=== PATIENT | male | born 1945 | race Caucasian/White ===

== ENCOUNTER 2023-11-16 15:49 | Outpatient (CLI) | payer MEDICARE, BC, SELFPAY ==
--- OUTSIDE RECORDS SUMMARY | 2023-11-16 16:00 | XMS_ITS | Referral Summary ---
Author Name Unknown Organization [facility] Address [address] [place] [address] Care Team Providers Care Channel Process Supervisor Name Role Phone Unavailable Primary Care Provider Unavailabl e Source Comments Patient records contain information from all sites at [facility]. For routine questions regarding patient records, call [phone] during business hours, M-F 8:00 AM - 5:00 PM Central Time. Record requests for emergency care only can be directed to [phone] at any time.[facility] Encounters Date Type Department Care Team Description 11/11/2023 Clinical Communication Department of Oncology in [address] [address] Flakito Desai M.B.B.S. 11/11/2023 7:53 AM TAPE KELLER OPERATOR - 11/11/2023 11:59 PM TAPE KELLER OPERATOR Hospital Encounter Department of Radiology in [place], [place] [address] [place] [phone] Flakito Desai M.B.B.S. 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 11/09/2023 Orders Only Department of Oncology in [address] [address] Shasta Garcia R.N. 11/09/2023 Clinical Communication Department of Oncology in [address] [address] Flakito Desai M.B.B.S. 11/04/2023 Refill Department of Oncology in [address] [place] [address] Lyndsay Ladd R.N. Med Refill 10/29/2023 9:30 AM TAPE KELLER OPERATOR Infusion Department of Infusion Therapy in [address] [address] Flakito Desai M.B.B.S. 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 Eliquis Questions 10/17/2023 Clinical Communication Department of [facility], [address] [address] Annmarie Jose M.S.N., R.N. COVID Treatment Review 10/16/2023 Clinical Communication Department of Oncology in [address] [address] Flakito Desai M.B.B.S. COVID + 10/02/2023 Refill Department of Oncology in [address] [address] Flakito Desai M.B.B.S. Med Refill 09/29/2023 1:45 PM TAPE KELLER OPERATOR Infusion Department of Infusion Therapy in [address] [address] Flakito Desai M.B.B.S. 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 from Last 3 Months Allergies Active Allergy Reactions Criticality Noted Date Comments Lisinopril Cough Low 11/15/2018 Medications Medication Sig Dispensed Refills Start Date End Date Status allopurinoL (ZYLOPRIM) 100 mg tablet Take 1 tablet by mouth daily. 0 03/30/2023 Active atorvastatin (LIPITOR) 10 mg tablet Take 10 mg by mouth daily. 0 06/17/2016 Active fluticasone propionate (FLONASE) 50 mcg/actuation nasal spray Administer 2 sprays into nostril(s) daily. 0 Active ondansetron (ZOFRAN) 8 mg tablet Take 8 mg by mouth every 8 (eight) hours as needed for nausea. 0 03/17/2023 Active tiotropium (Spiriva Respimat) 2.5 mcg/actuation inhaler Inhale 2 puffs daily. 0 10/06/2016 Active cholecalciferol , vitD3,/vit K2 (vitamin D3-vitamin K2) 125-90 mcg capsule Take 1 capsule by mouth daily. 0 Active magnesium oxide (MAG-OX) 400 mg (241.3 mg magnesium) tablet Take 1 tablet by mouth daily. 0 07/14/2023 Active dilTIAZem CD (CARDIZEM CD/CARTIA XT) 240 mg 24 hr capsule Take 240 mg by mouth daily. 0 08/25/2023 Active potassium chloride (KLORCON/K-TAB) 10 mEq ER tablet Take 1 tablet (10 mEq total) by mouth 2 (two) times a day. 60 tablet 11 10/02/2023 10/01/20 24 Active bisacodyL (DULCOLAX) 5 mg EC tablet Take 10 mg by mouth. 0 Acti ve apixaban (ELIQUIS) 5 mg tablet Take 1 tablet (5 mg total) by mouth 2 (two) times a day. 180 tablet 0 10/22/2023 01/20/20 24 Active Additional Information Patient not taking.Reported on 10/29/2023 prochlorperazin e (COMPAZINE) 10 mg tablet Take 10 mg by mouth every 6 (six) hours as needed for nausea or vomiting. 0 03/17/2023 Active UNABLE TO FIND Take 2 each by mouth 2 (two) times a day. Med Name: Vision Gold 0 Active apixaban (ELIQUIS) 5 mg tablet Take 1 tablet (5 mg total) by mouth 2 (two) times a day. 60 tablet 3 11/04/2023 Active enoxaparin (LOVENOX) 80 mg/0.8 mL injection Inject 0.8 mL (80 mg total) under the skin 2 (two) times a day for 3 doses. Recommend last dose of Eliquis to be taken 3 days prior to procedure. Recommend Lovenox 1 milligram/kilograms subcutaneously every 12 hours starting on day -2 through day -1. Last dose of Lovenox the morning the day before the procedure. NO anticoagulation for 24 hours prior to procedure. Resume anticoagulation with Eliquis 24 hours after minor risk of bleeding procedure. Resume anticoagulation with Eliquis 48 hours after major risk of bleeding procedure as long as adequate hemostasis has been reached. 2.4 mL 0 11/09/2023 Active sodium chloride 1 gram tablet Take 1 g by mouth. 3 tablets in the morning and 2 tablets at night 0 08/10/2023 11/08/19 24 apixaban (Eliquis) 5 mg tablet Take 5 mg by mouth 2 (two) times a day. 0 09/01/2023 11/04/19 24 Discontinue d(Reorder) apixaban (ELIQUIS) 5 mg tablet Take 1 tablet (5 mg total) by mouth 2 (two) times a day. 180 tablet 0 10/02/2023 10/22/19 24 Discontinue d(Reorder) molnupiravir (LAGEVRIO) 200 mg capsule Take 4 capsules (800 mg total) by mouth every 12 (twelve) hours for 5 days. 40 capsule 0 10/17/2023 10/22/19 24 apixaban (Eliquis) 5 mg tablet Take 2 tablets (10 mg total) by mouth 2 (two) times a day for 7 days. After 1st 7 days take 5 mg twice daily 28 tablet 0 11/11/2023 11/04/19 24 Discontinue d(Duplicate order) Active Problems Problem Noted Date Diagnosed Date Other Application Services Manager Current Drug Therapy 10/29/2023 Malignant Neoplasm Of Unspec ified Part Of Lung Laterality Unknown Small Cell 04/01/2023 Malignant Primary Neoplasm (Unknown Site) Unspec ified 03/08/2023 03/27/2023 Social History Tobacco Use Types Packs/Day Years Used Date Smoking Tobacco: Former Cigarettes Q uit: 1979 Passive Smoke Exposure: Never Smokeless Tobacco: Never Tobacco Cessation:Counseling Given: Not Answered Comments:Quit 46 years ago. Alcohol Use Standard Drinks/Week Comments Not Currently 0 (1 standard drink = 0.6 oz pur e alcohol) Nutrition Answer Date Recorded Nutrition: EVOO Fat Source Unknown 03/23 Nutrition: Servings of Fruits/Vegetables per Day Not on file 03/23/2023 Dental Answer Date Recorded Dental: Regular Dentist Unknown 03/23/20 Education Answer Date Recorded What is the highest level of school you have completed or the highest degree you have received? 8th grade 10/29/2023 Sex and Gender Information Value Date Recorded Sex Assigned at Male 04/01/2023 1:01 PM CDT Gender Identity Male 04/01/2023 1:01 PM CDT Sexual Orientation Straight 04/01/2023 1: 01 PM CDT Last Filed Vital Signs Vital Sign Reading Time Taken Comments Blood Pressure 110/70 10/29/2023 8:31 AM TAPE KELLER OPERATOR Pulse 93 10/29/2023 8:31 AM TAPE KELLER OPERATOR Temperature 36.3 ??C (97.3 ??F) 10/29/2023 8:31 AM CS T Respiratory Rate 22 10/29/2023 8:31 AM TAPE KELLER OPERATOR Oxygen Saturation 94% 10/29/2023 8:31 AM TAPE KELLER OPERATOR Inhaled Oxygen Concentration - - Weight 85.3 kg (188 lb 0.8 oz) 10/29/2023 8:31 A M TAPE KELLER OPERATOR Height 180.3 cm (5' 11) 05/06/2023 8:38 AM CDT Body Mass Index 26.23 05/06/2023 8:38 AM CDT Plan of Treatment Upcoming Encounters Date Type Department Care Team (Late st Contact Info) Description 11/18/2023 9:00 AM TAPE KELLER OPERATOR Lab Department of Infusion Therapy in [address] [place] [phone] Flakito Desai M.B.B.S. [address] [place] [phone] 11/18/2023 10:00 AM TAPE KELLER OPERATOR Office Visit Department of Oncology in [address] [place] [phone] Flakito Desai M.B.B.S. [address] [place] [phone] 11/18/2023 10:30 AM TAPE KELLER OPERATOR Infusion Department of Infusion Therapy in [address] [place] [address] Flakito Desai M.B.B.S. [address] [place] [phone] 11/19/2023 10:30 AM TAPE KELLER OPERATOR Infusion Department of Infusion Therapy in [address] [place] [address] Flakito Desai M.B.B.S. [address] [place] [phone] 11/20/2023 10:30 AM TAPE KELLER OPERATOR Infusion Department of Infusion Therapy in [address] [place] [address] Flakito Desai M.B.B.S. [address] [place] [phone] 12/07/2023 9:30 AM TAPE KELLER OPERATOR Lab Department of Infusion Therapy in [address] [place] [address] Flakito Desai M.B.B.S. [address] [place] [phone] 12/07/2023 10:40 AM TAPE KELLER OPERATOR Office Visit Department of Oncology in [address] [place] [address] Flakito Desai M.B.B.S. [address] [place] [phone] 12/07/2023 11:00 AM TAPE KELLER OPERATOR Infusion Department of Infusion Therapy in [address] [place] [address] Flakito Desai M.Antonietta.B.S. [address] [place] [phone] 12/08/2023 10:30 AM TAPE KELLER OPERATOR Infusion Department of Infusion Therapy in [address] [place] [address] Flakito Desai M.B.B.S. [address] [place] [phone] 12/09/2023 10:30 AM TAPE KELLER OPERATOR Infusion Department of Infusion Therapy in [address] [place] [address] Flakito Desai M.B.B.S. [address] [place] [phone] Medical Devices Implanted Type Area Analyzer Sales Device Identifier Shelf Expiration Date Model / Serial / Lot Prt Cath Infus Mri Intrmd 8f - [id number] Implanted:Qty : 1 on 05/04/2023 by Andrei Rivera M.D. 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) PHOSPHORUS (INORGANIC), S Routine 10/29/2023 7:35 AM TAPE KELLER OPERATOR 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) MAGNESIUM, S Routine 10/29/2023 7:35 AM TAPE KELLER OPERATOR 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) COMPREHENSIVE METABOLIC PANEL, S/P Routine 10/29/2023 7:35 AM TAPE KELLER OPERATOR 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) CBC WITH DIFFERENTIAL, B Routine 10/29/2023 7:35 AM TAPE KELLER OPERATOR 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) EXTM HOME SARS CORONAVIRUS-2 (COVID-19) ANTIGEN, V Routine 10/15/2023 THYROID FUNCTION CASCADE, S Routine 09/23/2023 12:16 PM TAPE KELLER OPERATOR 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) PHOSPHORUS (INORGANIC), S Routine 09/23/2023 12:16 PM TAPE KELLER OPERATOR 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) MAGNESIUM, S Routine 09/23/2023 12:16 PM TAPE KELLER OPERATOR 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) COMPREHENSIVE METABOLIC PANEL, S/P Routine 09/23/2023 12:16 PM TAPE KELLER OPERATOR 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 ??Three new hypermetabolic hepatic metastases. 2. ??Otherwise no PET CT evidence for additional or new disease elsewhere Narrative 11/11/2023 11:02 AM TAPE KELLER OPERATOR EXAM: PET CT SKULL TO THIGH FDG COMPARISON: 07/21/2023, 05/04/2023 INDICATION: Restaging non-small cell lung cancer, assess treatment response. Subsequent treatment strategy. F-[address] scan was performed from the mid calvarium through the upper thighs with CT fusion imaging for attenuation correction, anatomic coregistration, and respiratory gating only. Serum glucose at time of F-18 FDG injection: 100 mg/dL. Uptake time: 60 minutes following injection. The patient reports no recent vaccinations. FINDINGS: Head/Neck: No suspicious hypermetabolic foci. Chest: No suspicious hypermetabolic foci. Background internal control mediastinal uptake measures 6.67 on today's exam. Focus of hypermetabolism along the left cardiac sign no atrial junction is likely physiologic, perhaps due to brown fat. Abdomen/Pelvis: There are at least 3 new hypermetabolic lesions in the liver seen on image 157-142 of series 3/4, maximum SUV measuring 10.92. Left adrenal gland uptake is less than background measuring 2.55. Physiologic uptake demonstrated in bowel Skeleton: No suspicious hypermetabolic foci. In particular the sclerotic focus in the right iliac bone is nonhypermetabolic, see image 87 of series 3/4. Superficial venous uptake in the left arm on image 253 through 293 is likely physiologic. Uptake associated with a right mid thoracic vertebra osteophyte, image 188 of series 3/4 is physiologic. Other Findings: No pneumothorax. No acute airspace opacity is observed. No small bowel or colon obstruction or pneumatosis. RADIOPHARMACEUTICAL/MEDS: Route: intravenous fludeoxyglucose F 18 injection SHELTER (FDG F-18),13.7 millicurie Procedure Note Thomas Flor M.D. - 11/11/2023 EXAM: PET CT SKULL TO THIGH FDG COMPARISON: 07/21/2023, 05/04/2023 INDICATION: Restaging non-small cell lung cancer, assess treatmentresponse. Subsequent treatment strategy. F-[address] scan was performed from the mid calvarium through theupper thighs with CT fusion imaging for attenuation correction, anatomiccoregistration, and respiratory gating only. Serum glucose at time of F-18 FDG injection: 100 mg/dL. Uptake time: 60 minutes following injection. The patient reports no recent vaccinations. FINDINGS: Head/Neck: No suspicious hypermetabolic foci. Chest: No suspicious hypermetabolic foci. Background internal controlmediastinal uptake measures 6.67 on today's exam. Focus of hypermetabolismalong the left cardiac sign no atrial junction is likely physiologic,perhaps due to brown fat. Abdomen/Pelvis: There are at least 3 new hypermetabolic lesions in theliver seen on image 157-142 of series 3/4, maximum SUV measuring 10.92.Left adrenal gland uptake is less than background measuring 2.55.Physiologic uptake demonstrated in bowel Skeleton: No suspicious hypermetabolic foci. In particular the scleroticfocus in the right iliac bone is nonhypermetabolic, see image 87 of series3/4. Superficial venous uptake in the left arm on image 253 through 293 islikely physiologic. Uptake associated with a right mid thoracic vertebra osteophyte, image 188 ofseries 3/4 is physiologic. Other Findings: No pneumothorax. No acute airspace opacity is observed. Nosmall bowel or colon obstruction or pneumatosis. RADIOPHARMACEUTICAL/MEDS: Route: intravenous fludeoxyglucose F 18 injection SHELTER (FDG F-18),13.7 millicurie IMPRESSION: 1. Three new hypermetabolic hepatic metastases. 2. Otherwise no PET CT evidence for additional or new disease elsewhere Flakito PriceBKeishaS. [facility] NM PROCEDURE S * Thyroid Function Brown (10/29/2023 7:35 AM TAPE KELLER OPERATOR) Only the most recent of2 resultswithin the time period is included. TSH, Sensitive 1.2 0.3 - 4.2 mIU/L 10/29/2023 8:46 AM TAPE KELLER OPERATOR MKTO Blood (Blood, Venous) 10/29/2023 7:35 AM TAPE KELLER OPERATOR 10/29/2023 7:39 AM TAPE KELLER OPERATOR Flakito PriceB.S. LAB BLOOD ADD-ON [facility] [address] [place] [address], [place] [facility] [facility] [place] [address] [place] [address] * (ABNORMAL) CBC with Differential, Blood (10/29/2023 7:35 AM TAPE KELLER OPERATOR) Only the most recent of2 resultswithin the time period is included. Hemoglobin 13.2 13.2 - 16.6 g/dL 10/29/2023 7:43 AM TAPE KELLER OPERATOR MKTO Hematocrit 38.8 38.3 - 48.6 % 10/29/2023 7:43 AM TAPE KELLER OPERATOR MKTO Erythrocytes 4.21(L) 4.35 - 5.65 x10(12)/L 10/29/2023 7:43 AM TAPE KELLER OPERATOR MKTO MCV 92.2 78.2 - 97.9 fL 10/29/2023 7:43 AM TAPE KELLER OPERATOR MKTO RBC Distrib Width 13.1 11.8 - 14.5 % 10/29/2023 7:43 AM TAPE KELLER OPERATOR MKTO Platelet Count 274 135 - 317 x10(9)/L 10/29/2023 7:43 AM TAPE KELLER OPERATOR MKTO Leukocytes 8.4 3.4 - 9.6 x10(9)/L 10/29/2023 7:43 AM TAPE KELLER OPERATOR MKTO Neutrophils 6.17 1.56 - 6.45 x10(9)/L 10/29/2023 7:43 AM TAPE KELLER OPERATOR MKTO Lymphocytes 1.24 0.95 - 3.07 x10(9)/L 10/29/2023 7:43 AM TAPE KELLER OPERATOR MKTO Monocytes 0.77 0.26 - 0.81 x10(9)/L 10/29/2023 7:43 AM TAPE KELLER OPERATOR MKTO Eosinophils 0.20 0.03 - 0.48 x10(9)/L 10/29/2023 7:43 AM TAPE KELLER OPERATOR MKTO Basophils 0.04 0.01 - 0.08 x10(9)/L 10/29/2023 7:43 AM TAPE KELLER OPERATOR MKTO Blood (Blood, Venous) 10/29/2023 7:35 AM TAPE KELLER OPERATOR 10/29/2023 7:39 AM TAPE KELLER OPERATOR Flakito PriceB.S. LAB BLOOD ADD-ON [facility] [address] [place] [address], [place] [address] * Phosphorus Inorganic (10/29/2023 7:35 AM TAPE KELLER OPERATOR) Only the most recent of2 resultswithin the time period is included. Phosphorus (Inorganic), P 3.5 2.5 - 4.5 mg/dL 10/29/2023 8:04 AM TAPE KELLER OPERATOR MKTO Blood (Blood, Venous) 10/29/2023 7:35 AM TAPE KELLER OPERATOR 10/29/2023 7:39 AM TAPE KELLER OPERATOR Flakito Palacio.B.S. LAB BLOOD ADD-ON Performing Organization Address City/[facility]/ZIP Co de Phone Number [facility] [address] [place] [address], [facility] [address] [place] [id number] * Magnesium (10/29/2023 7:35 AM TAPE KELLER OPERATOR) Only the most recent of2 resultswithin the time period is included. Magnesium, P 1.9 1.7 - 2.3 mg/dL 10/29/2023 8:04 AM TAPE KELLER OPERATOR MKTO Blood (Blood, Venous) 10/29/2023 7:35 AM TAPE KELLER OPERATOR 10/29/2023 7:39 AM TAPE KELLER OPERATOR Flakito PriceB.S. LAB BLOOD ADD-ON [facility] [address] [place] [address], [address] [address] * Comprehensive Metabolic Panel (10/29/2023 7:35 AM TAPE KELLER OPERATOR) Only the most recent of2 resultswithin the time period is included. Potassium, P 4.3 3.6 - 5.2 mmol/L 10/29/2023 8:04 AM TAPE KELLER OPERATOR MKTO Sodium, P 135 135 - 145 mmol/L 10/29/2023 8:04 AM TAPE KELLER OPERATOR MKTO Chloride, P 101 98 - 107 mmol/L 10/29/2023 8:04 AM TAPE KELLER OPERATOR MKTO Bicarbonate, P 26 22 - 29 mmol/L 10/29/2023 8:04 AM TAPE KELLER OPERATOR MKTO Anion Gap, P 8 7 - 15 10/29/2023 8:04 AM TAPE KELLER OPERATOR MKTO BUN (Blood Urea Nitrogen), P 14 8 - 24 mg/dL 10/29/2023 8:04 AM TAPE KELLER OPERATOR MKTO Creatinine 0.75 0.74 - 1.35 mg/dL 10/29/2023 8:04 AM TAPE KELLER OPERATOR MKTO Estimated GFR (eGFR) >90 >=60 mL/min/BS A 10/29/2023 8:04 AM TAPE KELLER OPERATOR TO Comment: Estimated GFR calculated using the 2020 CKD_EPI creatinine equation. Calcium, Total, P 9.3 8.8 - 10.2 mg/dL 10/29/2023 8:04 AM TAPE KELLER OPERATOR MKTO Glucose, P 118 70 - 140 mg/dL 10/29/2023 8:04 AM TAPE KELLER OPERATOR TO Protein, Total, P 6.8 6.3 - 7.9 g/dL 10/29/2023 8:04 AM TAPE KELLER OPERATOR MKTO Albumin, P 4.0 3.5 - 5.0 g/dL 10/29/2023 8:04 AM TAPE KELLER OPERATOR TO Aspartate Aminotransferase (AST), P 21 8 - 48 U/L 10/29/2023 8:04 AM TAPE KELLER OPERATOR MKTO Alkaline Phosphatase, P 119 40 - 129 U/L 10/29/2023 8:04 AM TAPE KELLER OPERATOR MKTO Alanine Aminotransferase (ALT), P 14 7 - 55 U/L 10/29/2023 8:04 AM TAPE KELLER OPERATOR MKTO Bilirubin, Total, P 0.4 0.0 - 1.2 mg/dL 10/29/2023 8:04 AM TAPE KELLER OPERATOR MKTO Blood (Blood, Venous) 10/29/2023 7:35 AM TAPE KELLER OPERATOR 10/29/2023 7:39 AM TAPE KELLER OPERATOR Flakito Chio LAB BLOOD ADD-ON [facility] [address] [place] [address], [facility] MKTO [facility] [place] [address] [place] [address] * (ABNORMAL) EXT Home SARS Coronavirus-2 (COVID-19) Antigen (10/15/2023) EXT Home SARS-CoV-2 Antigen Presumptive Positive(A) Presumptive Negative HOME RESULTS Swab 10/15/2023 Historical Provider LAB MICROBIOLOGY - G ENERAL ORDERABLES HOME RESULTS from Last 3 Months Additional Health Concerns Infection Onset Date Last Indicated Protective Environment 09/29/2023 3
--- OUTSIDE RECORDS SUMMARY | 2023-11-16 16:00 | XMS_ITS | Encounter Summary ---
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 [address] [place] [address] [facility] Referral ID Status Reason Start Date Expiration Date Visits Re quested Visits Authorized [id number] Closed 09/23/2023 09/22/2024 1 1 Encounter Details Date Type Department Care Team (Latest Contact Info) Description 11/11/2023 7:53 AM BRIAR SH[employer] SUPERVISOR - 11/11/2023 11:59 PM [employer]RIAR [employer] SUPERVISOR Hospital Encounter Department of Radiology in [place], [place] [address] [place] [address] Flakito Desai M.B.BKeishaS. 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 Alcohol Use Standard [...] Orientation Straight 04/01/2023 1: 01 PM CDT documented as of this encounter Medications at Time of Discharge Medication Sig Dispensed Refills Start Date End Date allopurinoL (ZYLOPRIM) 100 mg tablet Take 1 tablet by mouth daily. 0 03/30/2023 apixaban (ELIQUIS) 5 mg tablet Take 1 tablet (5 mg total) by mouth 2 (two) times a day. 180 tablet 0 10/22/2023 01/20/2024 apixaban (ELIQUIS) 5 mg tablet Take 1 tablet (5 mg total) by mouth 2 (two) times a day. 60 tablet 3 11/04/2023 atorvastatin (LIPITOR) 10 mg tablet Take 10 mg by mouth daily. 0 06/17/2016 bisacodyL (DULCOLAX) 5 mg EC tablet Take 10 mg by mouth. 0 cholecalciferol, vitD3,/vit K2 (vitamin D3-vitamin K2) 125-90 mcg capsule Take 1 capsule by mouth daily. 0 dilTIAZem CD (CARDIZEM CD/CARTIA XT) 240 mg 24 hr capsule Take 240 mg by mouth daily. 0 08/25/2023 fluticasone propionate (FLONASE) 50 mcg/actuation nasal spray Administer 2 sprays into nostril(s) daily. 0 magnesium oxide (MAG-OX) 400 mg (241.3 mg magnesium) tablet Take 1 tablet by mouth daily. 0 07/14/2023 ondansetron (ZOFRAN) 8 mg tablet Take 8 mg by mouth every 8 (eight) hours as needed for nausea. 0 03/17/2023 potassium chloride (KLORCON/K-TAB) 10 mEq ER tablet Take 1 tablet (10 mEq total) by mouth 2 (two) times a day. 60 tablet 11 10/02/2023 10/01/2024 prochlorperazine (COMPAZINE) 10 mg tablet Take 10 mg by mouth every 6 (six) hours as needed for nausea or vomiting. 0 03/17/2023 tiotropium (Spiriva Respimat) 2.5 mcg/actuation inhaler Inhale 2 puffs daily. 0 10/06/2016 UNABLE TO FIND Take 2 each by mouth 2 (two) times a day. Med Name: Vision Gold 0 documented as of this encounter Plan of Treatment Upcoming Encounters Date Type Department Care Team (Late st Contact Info) Description 11/18/2023 9:00 AM BRIAR SHOP SUPERVISOR Lab Department of Infusion Therapy in [address] [place] [phone] Flakito Desai M.B.B.S. [facility] [place] [address] 11/18/2023 10:00 AM BRIAR [employer] SUPERVISOR Office Visit Department of Oncology in [address] [place] [phone] Flakito Desai M.B.B.S. [address] [place] [phone] 11/18/2023 10:30 AM BRIAR SHOP SUPERVISOR Infusion Department of Infusion Therapy in [address] [place] [address] Flakito Desai M.B.B.S. [address] [place] [phone] 11/19/2023 10:30 AM BRIAR SHOP SUPERVISOR Infusion Department of Infusion Therapy in [address] [place] [phone] Flakito Desai M.B.B.S. [address] [place] [phone] 11/20/2023 10:30 AM BRIAR SH[employer] SUPERVISOR Infusion Department of Infusion Therapy in [address] [place] [phone] Flakito Desai M.B.B.S. [address] [place] [phone] 12/07/2023 9:30 AM BRIAR [employer] SUPERVISOR Lab Department of Infusion Therapy in [address] [place] [phone] Flakito Desai M.B.B.S. [address] [place] [phone] 12/07/2023 10:40 AM BRIAR SH[employer] SUPERVISOR Office Visit Department of Oncology in [address] [place] [address] Flakito Desai M.B.B.S. [address] [place] [phone] 12/07/2023 11:00 AM BRIAR SHOP SUPERVISOR Infusion Department of Infusion Therapy in [address] [place] [address] Flakito Desai M.B.B.S. [address] [place] [phone] 12/08/2023 10:30 AM BRIAR SHOP SUPERVISOR Infusion Department of Infusion Therapy in [address] [place] [address] Flakito Desai M.B.B.S. [address] [place] [phone] 12/09/2023 10:30 AM BRIAR SHOP SUPERVISOR Infusion Department of Infusion Therapy in [address] [place] [phone] Flakito Desai M.B.B.S. 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 ??Three new hypermetabolic hepatic metastases. 2. ??Otherwise no PET CT evidence for additional or new disease elsewhere Narrative 11/11/2023 11:02 AM BRIAR SHOP SUPERVISOR EXAM: PET CT SKULL TO THIGH FDG [...] RADIOPHARMACEUTICAL/MEDS: Route: intravenous fludeoxyglucose F 18 injection DETENTION (FDG F-18),13.7 millicurie Procedure Note Thomas Flor [...] RADIOPHARMACEUTICAL/MEDS: Route: intravenous fludeoxyglucose F 18 injection DETENTION (FDG F-18),13.7 millicurie IMPRESSION: 1. Three new hypermetabolic hepatic metastases. 2. 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
--- OUTSIDE RECORDS SUMMARY | 2023-11-16 16:00 | XMS_ITS | Encounter Summary ---
Author Name Unknown Organization [facility] Address [address] [place] [address] Care Team Providers Care Clinical Training Specialist Name Role Phone Unavailable Primary Care Provider Unavailabl e Reason for Visit * Reason Comments Lung Cancer 5 week follow-up, madeleine gil done Treatment Advanced Care Planning Not on file, will bring a copy Fatigue No energy, especiall y since having Covid * Episode Based Medications (Routine) - Authorized Specialty Diagnoses / Procedures Referred By Contac t Referred To Contact Diagnoses 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) Other Fdc Current Drug Therapy Procedures [place] INJECTION, PEGFILGRASTIM, EXCLUDES BIOSIMILAR, 0.5 MG [place] ONDANSETRON HCL INJECTION [place] ATEZOLIZUMAB 10 MG INJ [place] CARBOPLATIN INJECTION [place] ETOPOSIDE 10 MG INJ Flakito Desai M.B.B.S. [address] [place] [phone] [facility] Region Referral ID Status Reason Start Date Expiration Date V isits Requested Visits Authorized [id number] Authorized 04/27/2023 03/31/2024 14 14 Encounter Details Date Type Department Care Team (Late st Contact Info) Description 10/29/2023 8:40 AM BUSINESS MANAGEMENT PROFESSOR Office Visit Department of Oncology in [address] [phone] Flakito Desai M.B.B.S. [address] [place] [phone] 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) (Primary Dx) Social History Tobacco Use Types Packs/Day Years [...] PM CDT documented as of this encounter Last Filed Vital Signs Vital Sign Reading Time Taken Comments Blood Pressure 110/70 10/29/2023 8:31 AM BUSINESS MANAGEMENT PROFESSOR Pulse 93 10/29/2023 8:31 AM BUSINESS MANAGEMENT PROFESSOR Temperature 36.3 ??C (97.3 ??F) 10/29/2023 8:31 AM CS T Respiratory Rate 22 10/29/2023 8:31 AM BUSINESS MANAGEMENT PROFESSOR Oxygen Saturation 94% 10/29/2023 8:31 AM BUSINESS MANAGEMENT PROFESSOR Inhaled Oxygen Concentration - - Weight 85.3 kg (188 lb 0.8 oz) 10/29/2023 8:31 A M BUSINESS MANAGEMENT PROFESSOR Height - - Body Mass Index 26.23 05/06/2023 8:38 AM CDT documented in this encounter Progress Notes * Flakito Desai M.B.B.S. - 10/29/2023 8:40 AM CST Images from the original note were not included. 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 MRI brain 03/13/2023 did not show metastatic disease. It was uncertain the origin of his small-cell cancer, approach at [facility] was for extrapulmonary small-cell with carboplatin etoposide. There was not sufficient tissue sample for B Miguel testing. After my initialconsult, With the presence of hypermetabolic activity in the hilar and mediastinal region, raises the possibility of lung origin. As we suspect likely lung origin. We added atezolizumab. No history of autoimmune conditions or organ transplant. Cycle 1 Dose of etoposide reduced by 50% due to liver function and tolerability, he received 480 mg of carboplatin cycle 1. Increase etoposide to 60% original dose cycle 2. Cycle 2 he received 500 mg carboplatin. As he received significant dose reductionswith cycle 1, will continue to 6 cycles chemo immunotherapy followed by maintenance atezolizumab, 05/04/2023 PET scan: Response to treatment. Considering that he responded well, and is tolerating treatment well, I would favor keeping the current dose, and aim to complete 6 cycles followed by maintenance immunotherapy. I did consider increasing the dose however in the interest of avoiding toxicities, would keep the current regimen dose. MRI brain 07/16/2023 no evidence of metastases, PET 07/21/2023: Complete response to therapy. Persistent low-grade uptake within the left adrenal gland, probable adenoma. Oncology History Overview Note 02/26/23 [facility], [place]: admitted to hospital for weakness, fatigue and unsteady gait over the past month, found to have Hyponatremia. During workup found to have metastatic pattern in the liver. Malignant Primary Neoplasm (Unknown Site) Unspecified (HCC) 02/26/2023 Critical Imaging 02/26/23 CT Head: Extensive chronic changes intracranially. Negative screening exam for acute abnormality. No CT evidence of acute intracranial hemorrhage or major acute hemispheric infarction. Any additional imaging evaluation such as with MRI, etc would be based on the clinical assessment. 03/02/23 CT Chest without contrast: The study is limited by the absence of intravenous contrast. Thehepatic parenchyma appears unusual and heterogeneous. A widespread infiltrative process cannot be excluded. Recommend more definitive assessment with either contrast enhanced CT of the abdomen, ultrasound of the liver or MRI of the abdomen. There is no convincing evidence of primary lung cancer, but there is some crowding of bronchovascular structures within the right upper lobe. There are few small peripheral reticulonodular opacities also present within the right upper lobe and chronic reticulonodular opacities present posterior medially within the right lower lobe. Cholelithiasis. 03/03/23 CT Chest with: No britany lung mass is identified but there are numerous nodules in the liversuggesting metastatic disease. Ascending aorta measures 4.2 cm in size which is approaching the diameter where some would consider intervention. I am not aware of any guidelines as to how often this should be followed. 03/03/23 CT Thre phase liver: There appear to be innumerable liver metastases. There is a suggestionof cirrhosis of the liver but I think the nodularity of the liver surface is related to the liver lesions. Portal vein and spleen are not particularly large 03/05/2023 Surgery and Procedures US guided liver biopsy 03/05/2023 Critical Imaging 03/05/23 CT AP: There are few bubbles of extraluminal air present within the fat anterior to the right hepatic lobe, which are of uncertain origin. The raise the possibility of perforated viscus, although a source is not readily apparent. There appears be widespread metastatic disease throughout theliver, but a primary malignancy is not readily apparent. Cholelithiasis. Mild colonic diverticulosis. 03/08/2023 Initial Diagnosis Malignant Primary Neoplasm (Unknown Site) Unspecified (HCC) 03/13/2023 Critical Imaging 03/13/23 MRI Brain: No acute intracranial process is identified. There is no MR evident acute ischemic change. PET: Biopsy proven FDG-AVID Hepatic metastases. Probable right suprahilar and mediastinal eric metastases. Osseous metastases if clinically indicated, a subtle sclerotic lesion in the right posterior iliac bone can be biopsied under CT guidance. 03/18/2023 - Chemotherapy Carboplatin AUC 5 / Etoposide 50mg/m2 Cycle 03/18/23 Critical Imaging ED workup for Confusion at [place], [place] 03/23/23 Xray Chest: The pericardial and mediastinal contours are within normal limits.The lungs are clear.No acute pulmonary abnormality. 03/23/23 CT Head: Age-related atrophy and moderately advanced cerebral white matter disease. No apparent acute process. 03/24/23 US Abd: Nodular heterogeneous liver compatible with cirrhosis. A solid and cystic lesion in the right hepatic lobe could be related to known metastatic disease. Mild thickening of the gallbladder wall could be related to liver disease. No additional findings to suggest acute cholecystitis. 05/04/[address]: Significantly improved FDG activity corresponding to the patient's known right-sided lung cancer, with complete resolution of FDG activity/size of previously noted mediastinal lymph nodes,excellent response to therapy. Mild residual hypermetabolism involving a left adrenal nodule and a sclerotic focus in the right iliac bone. Attention to these areas on future scans is recommended. 07/16/23 MRI Brain:Moderate chronic small vessel ischemic disease. No evidence of brain metastases. 07/21/[address]: Complete response to therapy. Persistent low-grade uptake within the left adrenal gland, probable adenoma. 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) 04/01/2023 - Chemotherapy Maintenance Atezolizumab started at [facility] on 07/29/23. Atezolizumab / CARBOplatin / Etoposide Start Date: 04/01/2023 Interim history He has been recovering from recent COVID infection. Has some fatigue, but otherwise feels well. No other symptoms or concerns to report. He would like to continue with his treatment today. He is here with his supportive Bunny. Tolerating Eliquis well without any significant side effects. No bleeding diastasis. At prior visit we discussed: He has been having loss of finger nails, it is not affecting all of his fingers. Could be a fungal infection that may have been exacerbated by chemotherapy, we discussed follow-up with primary care for further evaluation of this. He does not have any stents. He does not have any history of autoimmune conditions or transplant. Prior to the onset of his illness he was well. Able to drive, and do gardening. Previously did not need assist device for ambulation. No other symptoms or concerns to report. REVIEW OF SYSTEMS All other systems reviewed and are negative. MEDICATIONS: Current Outpatient Medications Medication Sig allopurinoL (ZYLOPRIM) 100 mg tablet Take 1 tablet by mouth daily. atorvastatin (LIPITOR) 10 mg tablet Take 10 mg by mouth daily. bisacodyL (DULCOLAX) 5 mg EC tablet Take 10 mg by mouth. cholecalciferol, vitD3,/vit K2 (vitamin D3-vitamin K2) 125-90 mcg capsule Take 1 capsule by mouth daily. dilTIAZem CD (CARDIZEM CD/CARTIA XT) 240 mg 24 hr capsule Take 240 mg by mouth daily. fluticasone propionate (FLONASE) 50 mcg/actuation nasal spray Administer 2 sprays into nostril(s) daily. magnesium oxide (MAG-OX) 400 mg (241.3 mg magnesium) tablet Take 1 tablet by mouth daily. potassium chloride (KLORCON/K-TAB) 10 mEq ER tablet Take 1 tablet (10 mEq total) by mouth 2 (two) times a day. sodium chloride 1 gram tablet Take 1 g by mouth. 3 tablets in the morning and 2 tablets at night UNABLE TO FIND Take 2 each by mouth 2 (two) times a day. Med Name: Vision Gold apixaban (Eliquis) 5 mg tablet Take 5 mg by mouth 2 (two) times a day. apixaban (ELIQUIS) 5 mg tablet Take 1 tablet (5 mg total) by mouth 2 (two) times a day. (Patient not taking: Reported on 10/29/2023) ondansetron (ZOFRAN) 8 mg tablet Take 8 mg by mouth every 8 (eight) hours as needed for nausea. prochlorperazine (COMPAZINE) 10 mg tablet Take 10 mg by mouth every 6 (six) hours as needed for nausea or vomiting. tiotropium (Spiriva Respimat) 2.5 mcg/actuation inhaler Inhale 2 puffs daily. No past medical history on file. No past surgical history on file. No family history on file. Social History Tobacco Use Smoking status: Former Types: Cigarettes Quit date: 1979 Years since quittin.0 Passive exposure: Never Smokeless tobacco: Never Tobacco comments: Quit 46 years ago. Vaping Use Vaping Use: never used Substance Use Topics Alcohol use: Not Currently Drug use: Never OBJECTIVE ECOG Score: 1-2 Vitals: 10/29/23 0831 BP: 110/70 Pulse: 93 Resp: 22 Temp: 36.3 ??C SpO2: 94% Wt Readings from Last 3 Encounters: 10/29/23 85.3 kg 09/23/23 88.6 kg 05/27/23 90.6 kg Vitals and nursing note reviewed. Constitutional General: he is not in acute distress. Appearance: he is not ill-appearing, toxic-appearing or diaphoretic. Cardiovascular Rate and Rhythm: Normal rate. Heart sounds normal, breath sounds normal, no pedal edema Pulmonary Effort: Pulmonary effort is normal. Neurological Mental Status: he is alert and oriented to person, place, and time. Psychiatric Mood and Affect: Mood normal. Behavior: Behavior normal. Thought Content: Thought content normal. Judgment: Judgment normal. Port clean dry and intact Advance Care Planning Health Care Power of Electromatic Typist: Not discussed today 2. Treatment Goals: Palliative 3. Additional lines of Therapy: Available 4. Prognosis: previously reviewed 5. Patient Personal Goals and understanding of illness: Wishes to pursue recommended treatment/workup LABORATORY DATA Recent Results (from the past 24 hour(s)) CBC with Differential, Blood Collection Time: 10/29/23 7:35 AM Result Value Hemoglobin 13.2 Hematocrit 38.8 Erythrocytes 4.21 (L) MCV 92.2 RBC Distrib Width 13.1 Platelet Count 274 Leukocytes 8.4 Neutrophils 6.17 Lymphocytes 1.24 Monocytes 0.77 Eosinophils 0.20 Basophils 0.04 Comprehensive Metabolic Panel Collection Time: 10/29/23 7:35 AM Result Value Potassium, P 4.3 Sodium, P 135 Chloride, P 101 Bicarbonate, P 26 Anion Gap, P 8 BUN (Blood Urea Nitrogen), P 14 Creatinine 0.75 Estimated GFR (eGFR) >90 Calcium, Total, P 9.3 Glucose, P 118 Protein, Total, P 6.8 Albumin, P 4.0 Aspartate Aminotransferase (AST), P 21 Alkaline Phosphatase, P 119 Alanine Aminotransferase (ALT), P 14 Bilirubin, Total, P 0.4 Magnesium Collection Time: 10/29/23 7:35 AM Result Value Magnesium, P 1.9 Phosphorus Inorganic Collection Time: 10/29/23 7:35 AM Result Value Phosphorus (Inorganic), P 3.5 RADIOLOGICAL DATA Radiology data reviewed. 03/05/2023 liver biopsy The malignant cells are positive for TTF-1, chromogranin, synaptophysin, and CD56. The morphologic features and immunoprofile support the diagnosis of small cell carcinoma. The features are not specific for a primary site. If there is a lung mass, this would be compatible with metastatic small cell carcinoma of lung origin. Correlation with full body imaging is recommended. 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 It was uncertain the origin of his small-cell cancer, approach at [facility] was for extrapulmonary small-cell with carboplatin etoposide. There was not sufficient tissue sample for B Miguel testing. After my initial consult, With the presence of hypermetabolic activityin the hilar and mediastinal region, raises the possibility of lung origin. As we suspect likely lung origin. We added atezolizumab. After 6 cycles chemo immunotherapy PET 07/21/2023: Complete response to therapy, Persistent low-grade uptake within the left adrenal gland, probable adenoma. Tested positive for COVID 10/15/2023, as a result treatment was deferred. Clinical examination stable. Labs stable. He has recovered from recent COVID infection. He is agreeable to continue on with treatment. He is planning to go for vacation in November -has upcoming PET scan -continue maintenance atezolizumab -continue potassium 10 mEq twice daily -will monitor MRI brain every 6 months (next 01/14/2024) - taper to 4 tabs salt tablets for hyponatremia, will wean off at subsequent visits Regimen atezolizumab 1200 mg D1 every 21 days //Unprovoked Right lower extremity DVT Dx 05/06/2023 in the setting of malignancy -Continue Eliquis 5 mg twice daily as long as bleeding does not become an issue. We discussed if cost becomes an issue, we can consider Coumadin - previously recommended bridging if any surgery within the 1st 6 months of his clot //left knee degenerative joint requiring surgery, recommend bridging Bridging recommendation: Recommend last dose of Eliquis to be taken 3 days prior to procedure. Recommend Lovenox 1 milligram/kilograms subcutaneously every 12 hours starting on day -2 through day -1. Last dose of Lovenox themorning the day before the procedure. No anticoagulation for 24 hours prior to procedure. Resume anticoagulation with Eliquis 24 hours after minor risk of bleeding procedure. Resume anticoagulation with Eliquis 48 hours after major risk of bleeding procedure as long as adequate hemostasis has been reached. - previously discussed, to alert us when upcoming surgeries plan so that we can send in prescription for Lovenox //Other problems Cirrhosis SIADH Aneurysm of ascending aorta History of CVA 2012 without residual deficits Hypertension Gout Nail changes Spiriva management Health maintenance Vaccination -Followup with primary care and other subspecialties for the above Summary of plan: Continue treatment per protocol Patient was encouraged to keep us informed in case has any side effects from therapy, so that we could help alleviate symptoms. Patient was encouraged to keep us informed in case develops any new symptomatology in the intervening period. PATIENT EDUCATION We discussed the above in detail with the patient, ready to learn, no apparent learning barriers were identified; learning preferences include listening. Patient expressed understanding of the content, and was able to teach back. Patient in agreement and consents to move forward with the above plan. They will contact us if any questions or concerns prior to next appointment. Bernadette Blackburn. 8:39 AM BUSINESS MANAGEMENT PROFESSOR 10/29/23 I personally spent 20 minutes in care of the patient today. This time includes both face to face and non-face to face time. CONTACT INFORMATION To contact your medical team, please utilize your [facility] Patient Portal or call our care team: #1 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) - Oncology office visit (clinic); Future; Expected date: 12/31/2023 - Infusion Appointment Request; Future; Expected date: 12/31/2023 - CBC with Differential, Blood; Future; Expected date: 12/31/2023 - Comprehensive Metabolic Panel; Future; Expected date: 12/31/2023 - Magnesium; Future; Expected date: 12/31/2023 - Phosphorus Inorganic; Future; Expected date: 12/31/2023 - Thyroid Function [place]; Future; Expected date: 12/31/2023 - Oncology office visit (clinic) Other orders - NaCl 0.9% infusion; 20 mL/hr, intravenous, Continuous Infusion: Per Instructions PRN, IV line cook, Starting on Angela 12/31/23, For 1 day - famotidine injection 20 mg (PEPCID); 20 mg, intravenous, Once, For 1 dose - atezolizumab 1,200 mg in NaCl 0.9% 270 mL IVPB (TECENTRIQ); 1,200 mg, intravenous, at 540 mL/hr, Administer over 30 Minutes, Once, For 1 doseIf the first infusion is tolerated, all subsequent infusions may be delivered over 30 minutes. Do not administer as an intravenous push or bolus. Do not co-administer other drugs through the same intravenous line. Do NOT shake. - acetaminophen tablet 650 mg (TYLENOL); 650 mg, oral, Every 4 hours PRN, infusion related reactions or temperature greater than 38 degrees Celsius, Starting on Angela 12/31/23, For 4 doses - diphenhydrAMINE injection 25 mg (BENADRYL); 25 mg, intravenous, Every 4 hours PRN, infusion related reactions. May repeat once if symptoms not relieved within 15 minutes of initial dose., Starting on Angela 12/31/23 - meperidine (PF) injection 25 mg (DEMEROL); 25 mg, intravenous, Every 15 min PRN, Rigors. May repeat once (maximum total dose 50 mg)., Starting on Angela 12/31/23, For 2 dosesRestriction Criteria (Pharmacy will review and approve if criteria met): Prevention or treatment of drug-induced or [id number] rigors - prochlorperazine injection 10 mg (COMPAZINE); 10 mg, intravenous, Every 6 hours PRN, nausea, vomiting, Starting on Angela 12/31/23Prochlorperazine should be used first for break-through nausea/vomiting. NESS MANAGEMENT PROFESSOR documented in this encounter Plan of Treatment Upcoming Encounters Date Type Department Care Team (Late st Contact Info) Description 11/18/2023 9:00 AM BUSINESS MANAGEMENT PROFESSOR Lab Department of Infusion Therapy in [address] [place] [phone] Flakito Desai M.B.B.S. [address] [place] [phone] 11/18/2023 10:00 AM BUSINESS MANAGEMENT PROFESSOR Office Visit Department of Oncology in [address] [place] [phone] Flakito Desai M.B.B.S. [address] [place] [phone] 11/18/2023 10:30 AM BUSINESS MANAGEMENT PROFESSOR Infusion Department of Infusion Therapy in [address] [place] [phone] lFakito Desai M.B.B.S. [address] [place] [phone] 11/19/2023 10:30 AM BUSINESS MANAGEMENT PROFESSOR Infusion Department of Infusion Therapy in [address] [place] [phone] Flakito Desai M.B.B.S. [address] [place] [phone] 11/20/2023 10:30 AM BUSINESS MANAGEMENT PROFESSOR Infusion Department of Infusion Therapy in [address] [place] [phone] Flakito Desai M.B.B.S. [address] [place] [phone] 12/07/2023 9:30 AM BUSINESS MANAGEMENT PROFESSOR Lab Department of Infusion Therapy in [address] [place] [phone] Flakito Desai M.B.B.S. [address] [place] [phone] 12/07/2023 10:40 AM BUSINESS MANAGEMENT PROFESSOR Office Visit Department of Oncology in [address] [place] [phone] Flakito Desai M.B.B.S. [address] [place] [phone] 12/07/2023 11:00 AM BUSINESS MANAGEMENT PROFESSOR Infusion Department of Infusion Therapy in [address] [place] [phone] Flakito Desai M.B.B.S. [address] [place] [phone] 12/08/2023 10:30 AM BUSINESS MANAGEMENT PROFESSOR Infusion Department of Infusion Therapy in [address] [place] [phone] Flakito Desai M.B.B.S. [address] [place] [phone] 12/09/2023 10:30 AM BUSINESS MANAGEMENT PROFESSOR Infusion Department of Infusion Therapy in [address] [place] [phone] Flakito Desai M.B.B.S. [address] [place] [phone] documented as of this encounter Visit Diagnoses Diagnosis 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)- Primary documented in this encounter Additional Health Concerns Infection Onset Date Last Indicated Resolved Time Protective Environment 09/29/2023 09/29/2023 COVID19 10/15/2023 10/15/2023 11/04/2023 6:13 AM BUSINESS MANAGEMENT PROFESSOR documented as of this encounter
--- OUTSIDE RECORDS SUMMARY | 2023-11-16 16:00 | XMS_ITS ---
Author Name Unknown Organization 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 (HCC)Other Detention Current Drug Therapy Treatment Medications Current Day (Day 1 , Cycle 11 - Planned for 11/18/2023) Next Day (Day 2, Cycle 11 - Planned for 11/19/2023) atezolizumab (TECENTRIQ)atezolizumab (TECENTRIQ) IVPB (TECENTRIQ)CARBOplatin (PARAPLATIN)CARBOplatin (PARAPLATIN) IVPB (BY AUC) in 250 mL (PARAPLATIN)etoposide (TOPOSAR)etoposide (TOPOSAR) IVPB (TOPOSAR) atezolizumab 1,200 mg in NaCl 0.9% 270 mL IVPB (TECENTRIQ)CARBOplatin 500 mg in NaCl 0.9% 300 mL IVPB (PARAPLATIN)etoposide 120 mg in NaCl 0.9% (non-PVC) 506 mL IVPB (TOPOSAR) etoposide 120 mg in NaCl 0.9% (non-PVC) 506 mL IVPB (TOPOSAR) Vascular Access Patency - Implanted Vascular Access Device (IVAD) Venous Non-Valved* Plan Start Date:05/06/2023 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 Past Plans Hem/Onc Therapy Plan 1 Plan Name Start Date Discontinue Date Treatment Medications Discontinue Reason Plan Provider Hydration 04/01/2023 09/16/2023 No medications scheduled. Therapy Complete Flakito Desai M.B.B.S. Hem/Onc Therapy Plan 2 Plan Name Start Date Discontinue Date Treatment Medications Discontinue Reason Plan Provider electrolyte administration 04/01/2023 09/16/2023 No medications scheduled. Therapy Complete Flakito Desai M.B.B.S. Radiation Treatments * No radiation treatments are documented for this patient in [facility]. Treatments may have been administered in another system. Lifetime Dose Tracking * Chemical Lifetime Dose Automatic Entry Manual Entr y Radiation 5 mGy 5 mGy 0 mGy Fluoro Time 1.3 minutes 1.3 minutes 0 minutes
--- OUTSIDE RECORDS SUMMARY | 2023-11-16 16:00 | XMS_ITS | Encounter Summary ---
Author Name Unknown Organization [facility] Address [address] [place] [address] Care Team Providers Care Estimator Paperboard Boxes Name Role Phone Unavailable Primary Care Provider Unavailabl e Encounter Details Date Type Department Care Team (Late Contact Info) Description 11/09/2023 Orders Only Department of Oncology in [place], [place] [address] [place] [phone] Shasta Garcia, RKeishaN. Social History Tobacco Use Types Packs/Day Years [...] PM CDT documented as of this encounter Plan of Treatment Upcoming Encounters Date Type Department Care Team (Late Contact Info) Description 11/18/2023 9:00 AM WHITE SUGAR PAN TANK OPERATOR Lab Department of Infusion Therapy in [address] [place] [address] Flakito Desai M.B.B.S. [address] [place] [phone] 11/18/2023 10:00 AM WHITE SUGAR PAN TANK OPERATOR Office Visit Department of Oncology in [address] [place] [phone] Flakito Desai M.B.B.S. [address] [place] [phone] 11/18/2023 10:30 AM WHITE SUGAR PAN TANK OPERATOR Infusion Department of Infusion Therapy in [address] [place] [address] Flakito Desai M.B.B.S. [address] [place] [phone] 11/19/2023 10:30 AM WHITE SUGAR PAN TANK OPERATOR Infusion Department of Infusion Therapy in [address] [place] [address] Flakito Desai M.B.B.S. [address] [place] [phone] 11/20/2023 10:30 AM WHITE SUGAR PAN TANK OPERATOR Infusion Department of Infusion Therapy in [address] [place] [address] Flakito Desai M.B.B.S. [address] [place] [phone] 12/07/2023 9:30 AM WHITE SUGAR PAN TANK OPERATOR Lab Department of Infusion Therapy in [address] [place] [address] Flakito Desai M.B.B.S. [address] [place] [phone] 12/07/2023 10:40 AM WHITE SUGAR PAN TANK OPERATOR Office Visit Department of Oncology in [address] [place] [phone] Flakito Desai M.B.B.S. [address] [place] [phone] 12/07/2023 11:00 AM WHITE SUGAR PAN TANK OPERATOR Infusion Department of Infusion Therapy in [address] [place] [address] Flakito Desai M.B.B.S. [address] [place] [phone] 12/08/2023 10:30 AM WHITE SUGAR PAN TANK OPERATOR Infusion Department of Infusion Therapy in [address] [place] [address] Flakito Desai M.B.B.S. [address] [place] [phone] 12/09/2023 10:30 AM WHITE SUGAR PAN TANK OPERATOR Infusion Department of Infusion Therapy in [address] [place] [address] Flakito Desai M.B.B.S. [address] [place] [phone] documented as of this encounter Visit Diagnoses Not on filedocumented in this encounter Additional Health Concerns Infection Onset Date Last Indicated Resolved Time Protective Environment 09/29/2023 09/29/2023 documented as of this encounter
--- OUTSIDE RECORDS SUMMARY | 2023-11-16 16:00 | XMS_ITS | Encounter Summary ---
Author Name Unknown Organization [facility] Address [address] [place] [address] Care Team Providers Care Multiskill Operator Name Role Phone Unavailable Primary Care Provider Unavailabl e Encounter Details Date Type Department Care Team (Late st Contact Info) Description 11/09/2023 Clinical Communication Department of Oncology in [place], [place] [address] [place] [phone] Flakito Desai M.B.B.S. [address] [place] [phone] Social History Tobacco Use Types Packs/Day Years [...] st Contact Info) Description 11/18/2023 9:00 AM SKEIN DYER Lab Department of Infusion Therapy in [address] [place] [phone] Flakito Desai M.B.B.S. [address] [place] [address] 11/18/2023 10:00 AM SKEIN DYER Office Visit Department of Oncology in [address] [place] [address] Flakito Desai M.B.B.S. [address] [place] [phone] 11/18/2023 10:30 AM SKEIN DYER Infusion Department of Infusion Therapy in [address] [place] [address] Flakito Desai M.B.B.S. [address] [place] [phone] 11/19/2023 10:30 AM SKEIN DYER Infusion Department of Infusion Therapy in [address] [place] [address] Flakito Desai M.B.B.S. [address] [place] [phone] 11/20/2023 10:30 AM SKEIN DYER Infusion Department of Infusion Therapy in [address] [place] [address] Flakito Desai M.B.B.S. [address] [place] [phone] 12/07/2023 9:30 AM SKEIN DYER Lab Department of Infusion Therapy in [address] [place] [phone] Flakito Desai M.B.B.S. [address] [place] [phone] 12/07/2023 10:40 AM SKEIN DYER Office Visit Department of Oncology in [address] [place] [phone] Flakito Desai M.B.B.S. [address] [place] [phone] 12/07/2023 11:00 AM SKEIN DYER Infusion Department of Infusion Therapy in [address] [place] [address] Flakito Desai M.B.B.S. [address] [place] [phone] 12/08/2023 10:30 AM SKEIN DYER Infusion Department of Infusion Therapy in [address] [place] [address] Flakito Desai M.B.B.S. [address] [place] [phone] 12/09/2023 10:30 AM SKEIN DYER Infusion Department of Infusion Therapy in [address] [place] [phone] Flakito Desai M.B.B.S. [address] [place] [phone] documented as of this encounter Visit Diagnoses Not on filedocumented in this encounter Additional Health Concerns Infection Onset Date Last Indicated Resolved Time Protective Environment 09/29/2023 09/29/2023 documented as of this encounter
--- OUTSIDE RECORDS SUMMARY | 2023-11-16 16:00 | XMS_ITS ---
Author Name Unknown Organization [facility] Address [address] [place] [address] Care Team Providers Care Playground Official Name Role Phone Unavailable Unavailable Unavailable Surgery Details Not on file Complications Check Surgery Details section. Procedure Estimated Blood Loss Check Surgery Details section. Procedure Findings Check Surgery Details section. Procedure Specimens Taken Check Surgery Details section.
--- OUTSIDE RECORDS SUMMARY | 2023-11-16 16:00 | XMS_ITS | Encounter Summary ---
Author Name Unknown Organization [facility] Address [address] [place] [address] Care Team Providers Care Arc Furnace Operator Name Role Phone Unavailable Primary Care Provider Unavailabl e Encounter Details Date Type Department Care Team (Late st Contact Info) Description 11/09/2023 Orders Only Department of Oncology in [place], [place] [address] [place] [phone] Flakito Desai M.B.B.S. [address] [place] [phone] Social History Tobacco Use Types Packs/Day Years [...] st Contact Info) Description 11/18/2023 9:00 AM CAREER PLACEMENT SPECIALIST Lab Department of Infusion Therapy in [address] [place] [address] Flakito Desai M.B.B.S. [address] [place] [address] 11/18/2023 10:00 AM CAREER PLACEMENT SPECIALIST Office Visit Department of Oncology in [address] [place] [address] Flakito Desai M.B.B.S. [address] [place] [phone] 11/18/2023 10:30 AM CAREER PLACEMENT SPECIALIST Infusion Department of Infusion Therapy in [address] [place] [address] Flakito Desai M.B.B.S. [address] [place] [phone] 11/19/2023 10:30 AM CAREER PLACEMENT SPECIALIST Infusion Department of Infusion Therapy in [address] [place] [address] Flakito Desai M.B.B.S. [address] [place] [phone] 11/20/2023 10:30 AM CAREER PLACEMENT SPECIALIST Infusion Department of Infusion Therapy in [address] [place] [address] Flakito Desai M.B.B.S. [address] [place] [phone] 12/07/2023 9:30 AM CAREER PLACEMENT SPECIALIST Lab Department of Infusion Therapy in [address] [place] [address] Flakito Desai M.B.B.S. [address] [place] [phone] 12/07/2023 10:40 AM CAREER PLACEMENT SPECIALIST Office Visit Department of Oncology in [address] [place] [phone] Flakito Desai M.B.B.S. [address] [place] [phone] 12/07/2023 11:00 AM CAREER PLACEMENT SPECIALIST Infusion Department of Infusion Therapy in [address] [place] [address] Flakito Desai M.B.B.S. [address] [place] [phone] 12/08/2023 10:30 AM CAREER PLACEMENT SPECIALIST Infusion Department of Infusion Therapy in [address] [place] [address] Flakito Desai M.B.B.S. [address] [place] [phone] 12/09/2023 10:30 AM CAREER PLACEMENT SPECIALIST Infusion Department of Infusion Therapy in [address] [place] [phone] Flakito Desai M.B.B.S. [address] [place] [phone] documented as of this encounter Visit Diagnoses Not on filedocumented in this encounter Additional Health Concerns Infection Onset Date Last Indicated Resolved Time Protective Environment 09/29/2023 09/29/2023 documented as of this encounter
--- OUTSIDE RECORDS SUMMARY | 2023-11-16 16:00 | XMS_ITS | Clinical Summary ---
Author Name Unknown Organization [facility] Address [address] [place] [address] Care Team Providers Care Labeler Name Role Phone Unavailable Primary Care Provider Unavailabl e Source Comments Patient records contain information from all sites at [facility]. For routine questions regarding patient records, call [phone] during business hours, M-F 8:00 AM - 5:00 PM Central Time. Record requests for emergency care only can be directed to [phone] at any time.[facility] Allergies Active Allergy Reactions Criticality Noted Date [...] 2 (two) times a day. 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 11/09/2023 Orders Only Department of Oncology in [address] [address] Flakito Desai M.B.B.S. 11/09/2023 Orders Only Department of Oncology in [address] [address] Shasta Garcia R.N. 11/09/2023 Clinical Communication Department of Oncology in [address] [address] Flakito Desai M.B.B.S. 11/04/2023 Refill Department of Oncology in [address] [place] [address] Lyndsay Ladd R.N. [facility] Refill 10/29/2023 9:30 AM [facility]ZZA COOK Infusion Department of Infusion Therapy in [address] [address] Flakito Desai M.B.B.S. 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 Eliquis Questions 10/17/2023 Clinical Communication Department of Family Medicine, [address] [address] Annmarie Jose M.S.N., R.Sary. COVID Treatment Review 10/16/2023 Clinical Communication Department of Oncology in [address] [place] [address] Flakito Desai M.B.B.S. COVID + 10/02/2023 Refill Department of Oncology in [address] [address] Flakito Desai M.B.B.S. Med Refill 09/29/2023 1:45 PM [facility]ZZA [facility]OOK Infusion Department of Infusion Therapy in [address] [address] Flakito Desai M.B.B.S. 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 from Last 3 Months Social History Tobacco Use Types Packs/Day Years [...] Comments Blood Pressure 110/70 10/29/2023 8:31 AM [facility]ZZA [facility]OOK Pulse 93 10/29/2023 8:31 AM [facility]ZZ[facility] Temperature 36.3 ??C (97.3 ??F) 10/29/2023 8:31 AM CS T Respiratory Rate 22 10/29/2023 8:31 AM [facility]ZZA COOK Oxygen Saturation 94% 10/29/2023 8:31 AM [facility]ZZA [facility]OOK Inhaled Oxygen Concentration - - Weight 85.3 kg (188 lb 0.8 oz) 10/29/2023 8:31 A M [facility]A [facility] Height 180.3 cm (5' 11) 05/06/2023 8:38 AM CDT Body Mass Index 26.23 05/06/2023 8:38 AM CDT Plan of Treatment Upcoming Encounters Date Type Department Care Team (Late st Contact Info) Description 11/18/2023 9:00 AM [facility]A [facility] Lab Department of Infusion Therapy in [address] [place] [address] Flakito Desai M.B.B.S. [address] [place] [phone] 11/18/2023 10:00 AM [facility]ZZA COOK Office Visit Department of Oncology in [address] [place] [address] Flakito Desai M.B.B.S. [address] [place] [phone] 11/18/2023 10:30 AM [facility]A [facility]OOK Infusion Department of Infusion Therapy in [address] [place] [address] Flakito Desai M.B.B.S. [address] [place] [phone] 11/19/2023 10:30 AM [facility]OOK Infusion Department of Infusion Therapy in [address] [place] [address] Flakito Desai M.B.B.S. [address] [place] [phone] 11/20/2023 10:30 AM [facility]OOK Infusion Department of Infusion Therapy in [address] [place] [address] Flakito Desai M.B.B.S. [address] [place] [phone] 12/07/2023 9:30 AM [facility] Lab Department of Infusion Therapy in [address] [place] [address] Flakito Desai M.B.B.S. [address] [place] [phone] 12/07/2023 10:40 AM [facility]ZZA COOK Office Visit Department of Oncology in [address] [place] [address] Flakito Desai M.B.B.S. [address] [place] [phone] 12/07/2023 11:00 AM [facility]ZZA COOK Infusion Department of Infusion Therapy in [address] [place] [address] Flakito Desai M.Antonietta.B.S. [address] [place] [phone] 12/08/2023 10:30 AM [facility]ZZA COOK Infusion Department of Infusion Therapy in [address] [place] [address] Flakito Desai M.B.B.S. [address] [place] [phone] 12/09/2023 10:30 AM [facility]A COOK Infusion Department of Infusion Therapy in [address] [place] [address] Flakito Desai M.B.B.S. [address] [place] [phone] Health Maintenance Due Date Last Done Comments Hepatitis C Screening 1945 COVID-19 Vaccine (#1) 12/29/1950 Pneumococcal vaccine (65+ ye ars) (2 of 2 - PCV) 04/25/2010 04/25/2009 Zoster Vaccines (2 of 3) 12/04/2010 10/09/2010 Influenza Vaccine (#1) 2023 9, 10/09/2011, 10/09/2011, Additional history exists Depression Screening (Annual PHQ-2) 10/19/2023 Fall Risk Screen (Annual) 10/19/2023 DTaP,Tdap,and Td Vaccines (2 - Td or Tdap) 06/14/2024 06/14/2014, 04/25/2009 Medical Devices Implanted Type Area [employer] Officer Device Identifier Shelf Expiration Date Model / Serial / Lot Prt Cath Infus Mri Intrmd 8f - [id number] Implanted:Qty : 1 on 05/04/2023 by Andrei Rivera M.D. 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) PHOSPHORUS (INORGANIC), S Routine 10/29/2023 7:35 AM [facility]ZZA COOK 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) MAGNESIUM, S Routine 10/29/2023 7:35 AM [facility]ZZA COOK 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) COMPREHENSIVE METABOLIC PANEL, S/P Routine 10/29/2023 7:35 AM [facility]ZZA COOK 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) CBC WITH DIFFERENTIAL, B Routine 10/29/2023 7:35 AM [facility]ZZA COOK 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) EXTM HOME SARS CORONAVIRUS-2 (COVID-19) ANTIGEN, V Routine 10/15/2023 THYROID FUNCTION CASCADE, S Routine 09/23/2023 12:16 PM [facility]ZZA COOK 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) PHOSPHORUS (INORGANIC), S Routine 09/23/2023 12:16 PM [facility]ZZA COOK 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) MAGNESIUM, S Routine 09/23/2023 12:16 PM [facility]ZZA COOK 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) COMPREHENSIVE METABOLIC PANEL, S/P Routine 09/23/2023 12:16 PM [facility]ZZA COOK 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 ??Three new hypermetabolic hepatic metastases. 2. ??Otherwise no PET CT evidence for additional or new disease elsewhere Narrative 11/11/2023 11:02 AM [facility]ZZA COOK EXAM: PET CT SKULL TO THIGH FDG [...] RADIOPHARMACEUTICAL/MEDS: Route: intravenous fludeoxyglucose F 18 injection MCC (FDG F-18),13.7 millicurie Procedure Note Thomas Flor [...] RADIOPHARMACEUTICAL/MEDS: Route: intravenous fludeoxyglucose F 18 injection MCC (FDG F-18),13.7 millicurie IMPRESSION: 1. Three new hypermetabolic hepatic metastases. 2. Otherwise no PET CT evidence for additional or new disease elsewhere Flakito Choi IMG NM PROCEDURE S * Thyroid Function [place] (10/29/2023 7:35 AM [facility]ZZA COOK) Only the most recent of2 resultswithin the time period is included. TSH, Sensitive 1.2 0.3 - 4.2 mIU/L 10/29/2023 8:46 AM [facility]ZZA COOK MKTO Blood (Blood, Venous) 10/29/2023 7:35 AM [facility]ZZA COOK 10/29/2023 7:39 AM PIZZA COOK Flakito Choi LAB BLOOD ADD-ON [facility] [address] [place] [address], [facility] MKTO [facility] [place] [address] * (ABNORMAL) CBC with Differential, Blood (10/29/2023 7:35 AM PIZZA COOK) Only the most recent of2 resultswithin the time period is included. Hemoglobin 13.2 13.2 - 16.6 g/dL 10/29/2023 7:43 AM [facility]OOK MKTO Hematocrit 38.8 38.3 - 48.6 % 10/29/2023 7:43 AM [facility]ZZA COOK MKTO Erythrocytes 4.21(L) 4.35 - 5.65 x10(12)/L 10/29/2023 7:43 AM [facility]ZZA COOK MKTO MCV 92.2 78.2 - 97.9 fL 10/29/2023 7:43 AM [facility]ZZ[facility]OOK MKTO RBC Distrib Width 13.1 11.8 - 14.5 % 10/29/2023 7:43 AM [facility] MKTO Platelet Count 274 135 - 317 x10(9)/L 10/29/2023 7:43 AM [facility]ZZ[facility]OOK MKTO Leukocytes 8.4 3.4 - 9.6 x10(9)/L 10/29/2023 7:43 AM [facility]OOK MKTO Neutrophils 6.17 1.56 - 6.45 x10(9)/L 10/29/2023 7:43 AM [facility] MKTO Lymphocytes 1.24 0.95 - 3.07 x10(9)/L 10/29/2023 7:43 AM [facility]OOK MKTO Monocytes 0.77 0.26 - 0.81 x10(9)/L 10/29/2023 7:43 AM [facility] MKTO Eosinophils 0.20 0.03 - 0.48 x10(9)/L 10/29/2023 7:43 AM [facility] MKTO Basophils 0.04 0.01 - 0.08 x10(9)/L 10/29/2023 7:43 AM [facility] COOK MKTO Blood (Blood, Venous) 10/29/2023 7:35 AM PIZZA COOK 10/29/2023 7:39 AM PIZZA COOK Flakito PriceB.S. LAB BLOOD ADD-ON Performing Organization Address City/[facility]/ZIP Co de Phone Number [facility] [address] [place] [address] * Phosphorus Inorganic (10/29/2023 7:35 AM PIZZA COOK) Only the most recent of2 resultswithin the time period is included. Pathologist [facility] Phosphorus (Inorganic), P 3.5 2.5 - 4.5 mg/dL 10/29/2023 8:04 AM [facility]ZZA COOK MKTO Blood (Blood, Venous) 10/29/2023 7:35 AM [facility]ZZA COOK 10/29/2023 7:39 AM PIZZA COOK Flakito Palacio.B.S. LAB BLOOD ADD-ON Performing Organization Address City/[facility]/ZIP Co de Phone Number [facility] [address] [place] [address] * Magnesium (10/29/2023 7:35 AM [facility]ZZA COOK) Only the most recent of2 resultswithin the time period is included. Magnesium, P 1.9 1.7 - 2.3 mg/dL 10/29/2023 8:04 AM [facility]ZZA COOK MKTO Blood (Blood, Venous) 10/29/2023 7:35 AM PIZZA COOK 10/29/2023 7:39 AM PIZZA COOK Flakito Choi LAB BLOOD ADD-ON [facility] [address] [place] [address], [facility] MKTO [facility] in [place] [address] [place] [address] * Comprehensive Metabolic Panel (10/29/2023 7:35 AM [facility]ZZA COOK) Only the most recent of2 resultswithin the time period is included. Potassium, P 4.3 3.6 - 5.2 mmol/L 10/29/2023 8:04 AM [facility]ZZA COOK MKTO Sodium, P 135 135 - 145 mmol/L 10/29/2023 8:04 AM [facility] MKTO Chloride, P 101 98 - 107 mmol/L 10/29/2023 8:04 AM [facility]OOK MKTO Bicarbonate, P 26 22 - 29 mmol/L 10/29/2023 8:04 AM [facility]ZZ[facility]OOK MKTO Anion Gap, P 8 7 - 15 10/29/2023 8:04 AM [facility]OOK MKTO BUN (Blood Urea Nitrogen), P 14 8 - 24 mg/dL 10/29/2023 8:04 AM [facility] MKTO Creatinine 0.75 0.74 - 1.35 mg/dL 10/29/2023 8:04 AM [facility]ZZA COOK MKTO Estimated GFR (eGFR) >90 >=60 mL/min/BS A 10/29/2023 8:04 AM [facility]ZZA COOK MKTO Comment: Estimated GFR calculated using the 2020 CKD_EPI creatinine equation. Calcium, Total, P 9.3 8.8 - 10.2 mg/dL 10/29/2023 8:04 AM [facility] MKTO Glucose, P 118 70 - 140 mg/dL 10/29/2023 8:04 AM [facility]ZZ[facility] COOK MKTO Protein, Total, P 6.8 6.3 - 7.9 g/dL 10/29/2023 8:04 AM [facility]ZZ[facility] COOK MKTO Albumin, P 4.0 3.5 - 5.0 g/dL 10/29/2023 8:04 AM [facility]ZZ[facility] COOK MKTO Aspartate Aminotransferase (AST), P 21 8 - 48 U/L 10/29/2023 8:04 AM [facility]ZZ[facility]OOK MKTO Alkaline Phosphatase, P 119 40 - 129 U/L 10/29/2023 8:04 AM [facility]OOK MKTO Alanine Aminotransferase (ALT), P 14 7 - 55 U/L 10/29/2023 8:04 AM [facility]ZZ[facility]OOK MKTO Bilirubin, Total, P 0.4 0.0 - 1.2 mg/dL 10/29/2023 8:04 AM [facility] COOK MKTO Blood (Blood, Venous) 10/29/2023 7:35 AM PIZZA COOK 10/29/2023 7:39 AM PIZZA COOK Flakito Choi LAB BLOOD ADD-ON [facility] [address] [place] [address], [facility] MKTO [facility] in [address] [address] * (ABNORMAL) EXT Home SARS Coronavirus-2 (COVID-19) Antigen (10/15/2023) EXT Home SARS-CoV-2 Antigen Presumptive Positive(A) Presumptive Negative HOME RESULTS Swab 10/15/2023 Historical Provider LAB MICROBIOLOGY - G ENERAL ORDERABLES HOME RESULTS from Last 3 Months Additional Health Concerns Infection Onset Date Last Indicated Protective Environment 09/29/2023 3
--- OUTSIDE RECORDS SUMMARY | 2023-11-16 16:00 | XMS_ITS | Encounter Summary ---
Author Name Unknown Organization [facility] Address [address] [place] [address] Care Team Providers Care Presentation Manager Name Role Phone Unavailable Primary Care Provider Unavailabl e Reason for Visit * Reason Comments Med Refill Encounter Details Date Type Department Care Team (Late st Contact Info) Description 11/04/2023 Refill Department of Oncology in [address] [place] [address] Lyndsay Ladd R.N. [address] [place] [address] [place] [address] Med Refill Social History Tobacco Use Types Packs/Day Years [...] st Contact Info) Description 11/18/2023 9:00 AM [employer] Lab Department of Infusion Therapy in [address] [place] [address] Flakito Desai M.B.B.S. [address] [place] [address] 11/18/2023 10:00 AM [employer] Office Visit Department of Oncology in [address] [place] [address] Flakito Desai M.B.B.S. [address] [place] [phone] 11/18/2023 10:30 AM [employer] Infusion Department of Infusion Therapy in [address] [place] [address] Flakito Desai M.B.B.S. [address] [place] [phone] 11/19/2023 10:30 AM [employer] Infusion Department of Infusion Therapy in [address] [place] [address] Flakito Desai M.Antonietta.B.S. [address] [place] [phone] 11/20/2023 10:30 AM [employer] Infusion Department of Infusion Therapy in [address] [place] [address] Flakito Desai M.B.B.S. [address] [place] [phone] 12/07/2023 9:30 AM [employer] Lab Department of Infusion Therapy in [address] [place] [address] Flakito Desai M.B.B.S. [address] [place] [phone] 12/07/2023 10:40 AM [employer] Office Visit Department of Oncology in [address] [place] [address] Flakito Desai M.B.B.S. [address] [place] [phone] 12/07/2023 11:00 AM [employer] Infusion Department of Infusion Therapy in [address] [place] [address] Flakito Desai M.B.B.S. [address] [place] [phone] 12/08/2023 10:30 AM [employer] Infusion Department of Infusion Therapy in [address] [place] [address] Flakito Desai M.B.B.S. [address] [place] [phone] 12/09/2023 10:30 AM [employer] Infusion Department of Infusion Therapy in [address] [place] [address] Flakito Desai M.B.B.S. [address] [place] [phone] documented as of this encounter Visit Diagnoses Not on filedocumented in this encounter Additional Health Concerns Infection Onset Date Last Indicated Resolved Time Protective Environment 09/29/2023 09/29/2023 COVID19 10/15/2023 10/15/2023 11/04/2023 6:13 AM [employer] documented as of this encounter
--- OUTSIDE RECORDS SUMMARY | 2023-11-16 16:00 | XMS_ITS | Encounter Summary ---
Author Name Unknown Organization [facility] Address [address] [place] [address] Care Team Providers Care Tinning Machine Set Up Operator Name Role Phone Unavailable Primary Care Provider Unavailabl e Reason for Referral * Outpatient (Routine) Specialty Diagnoses / Procedures Referred By Contac t Referred To Contact Oncology Flakito Desai M.B.B.S. [address] [place] [phone] [facility] Referral ID Status Reason Start Date Expiration Date Visits Re quested Visits Authorized ER WHEELCHAIR * Outpatient (Routine) Specialty Diagnoses / Procedures [facility] Referred To Contact Oncology Flakito Desai M.B.B.S. [address] [place] [phone] [facility] Referral ID Status Reason Start Date Expiration Date Visits Re quested Visits Authorized ER WHEELCHAIR Encounter Details Date Type Department Care Team (Late st Contact Info) Description 11/11/2023 Clinical Communication Department of Oncology in [address] [phone] Flakito Desai M.B.B.S. [address] [place] [phone] Social History Tobacco Use Types Packs/Day Years [...] PM CDT documented as of this encounter Miscellaneous Notes * Telephone Encounter - Flakito Desai M.B.B.S. - 11/11/2023 3:01 PM DRIVER WHEELCHAIR Images from the original note were not included. I reviewed the PET scan and the report Progressive disease. at least 3 new hypermetabolic lesions in the liver. 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 The benefits of another rechallenge with [place] etoposide could be marginal. They may be a bit more gain by using cisplatin, however that comes with some toxicity, particularly in light of his age. We could consider second-line lurbinectedin given every 3 weeks. He did have a really good response to carboplatin etoposide and tolerated it fairly well. I think either of these options would be equal. I called the patient and his , discuss the above. Preference at this time is for carboplatin etoposide which I think is reasonable. -plan for carboplatin etoposide atezolizumab for about 4 cycles then restage -patient consents for the above Regimen Carboplatin AUC 5 (using 500 mg), Etoposide 60 mg per m2 D1, D2, D3 (60% original dose), Atezolizumab 1200 mg D1 every 21 days, followed by atezolizumab 1680 mg every 28 days Neulasta Onpro D3 ER WHEELCHAIR documented in this encounter Plan of Treatment Upcoming Encounters Date Type Department Care Team (Late st Contact Info) Description 11/18/2023 9:00 AM DRIVER WHEELCHAIR Lab Department of Infusion Therapy in [address] [place] [phone] Flakito Desai M.B.B.S. [address] [place] [phone] 11/18/2023 10:00 AM DRIVER WHEELCHAIR Office Visit Department of Oncology in [address] [place] [phone] Flakito Desai M.B.B.S. [address] [place] [phone] 11/18/2023 10:30 AM DRIVER WHEELCHAIR Infusion Department of Infusion Therapy in [address] [place] [phone] Flakito Desai M.B.B.S. [address] [place] [phone] 11/19/2023 10:30 AM DRIVER WHEELCHAIR Infusion Department of Infusion Therapy in [address] [place] [phone] Flakito Desai M.B.B.S. [address] [place] [phone] 11/20/2023 10:30 AM DRIVER WHEELCHAIR Infusion Department of Infusion Therapy in [address] [place] [phone] Flakito Desai M.B.B.S. [address] [place] [phone] 12/07/2023 9:30 AM DRIVER WHEELCHAIR Lab Department of Infusion Therapy in [address] [place] [phone] Flakito Desai M.B.B.S. [address] [place] [phone] 12/07/2023 10:40 AM DRIVER WHEELCHAIR Office Visit Department of Oncology in [address] [place] [phone] Flakito Desai M.B.B.S. [address] [place] [phone] 12/07/2023 11:00 AM DRIVER WHEELCHAIR Infusion Department of Infusion Therapy in [address] [place] [phone] Flakito Desai M.B.B.S. [address] [place] [phone] 12/08/2023 10:30 AM DRIVER WHEELCHAIR Infusion Department of Infusion Therapy in [address] [place] [address] Flakito Desai M.B.B.S. [address] [place] [phone] 12/09/2023 10:30 AM DRIVER WHEELCHAIR Infusion Department of Infusion Therapy in [address] [place] [phone] Flakito Desai M.B.B.S. 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) Other Energy Projects Lead Current Drug Therapy Expected: 11/18/2023, Expires: 11/18/2024 Phosphorus Inorganic Lab Routine 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) Other Energy Projects Lead Current Drug Therapy Expected: 11/18/2023, Expires: 11/18/2024 Thyroid Function [place] Lab Routine 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) Other Energy Projects Lead Current Drug Therapy Expected: 11/18/2023, Expires: 11/18/2024 CBC with Differential, Blood Lab Routine 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) Other Energy Projects Lead Current Drug Therapy Expected: 12/09/2023, Expires: 12/09/2026 Comprehensive Metabolic Panel Lab Routine 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) Other Energy Projects Lead Current Drug Therapy Expected: 12/09/2023, Expires: 12/09/2024 Magnesium Lab Routine 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) Other Longterm Current Drug Therapy Expected: 12/09/2023, Expires: 12/09/2024 Phosphorus Inorganic Lab Routine 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) Other Longterm Current Drug Therapy Expected: 12/09/2023, Expires: 12/09/2024 Thyroid Function [place] Lab Routine 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) Other Longterm Current Drug Therapy Expected: 12/09/2023, Expires: 12/09/2024 Scheduled Referrals Name Type Priority Associated Diagnoses Orde r Schedule Oncology office visit (clinic) Outpatient Referral Routine 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) Other Longterm Current Drug Therapy Expected: 11/18/2023, Expires: 11/18/2024 Oncology office visit (clinic) Outpatient Referral Routine 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
--- OUTSIDE RECORDS SUMMARY | 2023-11-16 16:00 | XMS_ITS | Encounter Summary ---
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 [address] [place] [phone] [facility] Region Referral ID Status Reason Start Date Expiration Date V isits Requested Visits Authorized [id number] Authorized 04/27/2023 03/31/2024 14 14 Encounter Details Date Type Department Care Team (Late st Contact Info) Description 10/29/2023 9:30 AM SAP MANAGER Infusion Department of Infusion Therapy in [address] [phone] Flakito Desai M.B.B.S. 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 [address] [place] [phone] 11/18/2023 10:00 AM SAP MANAGER Office Visit Department of Oncology in [address] [place] [phone] Flakito Desai M.B.B.S. [address] [place] [phone] 11/18/2023 10:30 AM SAP MANAGER Infusion Department of Infusion Therapy in [address] [place] [address] Flakito Desai M.B.B.S. [address] [place] [phone] 11/19/2023 10:30 AM SAP MANAGER Infusion Department of Infusion Therapy in [address] [place] [phone] Flakito Desai M.B.B.S. [address] [place] [phone] 11/20/2023 10:30 AM SAP MANAGER Infusion Department of Infusion Therapy in [address] [place] [address] Flakito Desai M.B.B.S. [address] [place] [phone] 12/07/2023 9:30 AM SAP MANAGER Lab Department of Infusion Therapy in [address] [place] [phone] Flakito Desai M.B.B.S. [address] [place] [phone] 12/07/2023 10:40 AM SAP MANAGER Office Visit Department of Oncology in [address] [place] [phone] Flakito Desai M.B.B.S. [address] [place] [phone] 12/07/2023 11:00 AM SAP MANAGER Infusion Department of Infusion Therapy in [address] [place] [address] Flakito Desai M.B.B.S. [address] [place] [phone] 12/08/2023 10:30 AM SAP MANAGER Infusion Department of Infusion Therapy in [address] DOZIER, [place] [address] Flakito Desai M.B.B.S. [address] [place] [phone] 12/09/2023 10:30 AM SAP MANAGER Infusion Department of Infusion Therapy in [address] [place]ZIER, [place] [phone] Flakito Desai M.B.B.S. 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 Do not administer as an intravenous push or bolus. Do not co-administer other drugs through the same intravenous line. Do NOT shake. New Bag 10/29/2023 10:12 AM SAP MANAGER 1,200 mg 590 mL/hr famotidine injection 20 mg (PEPCID) 20 mg, intravenous, Once, On Angela 10/29/23 at 0945, For 1 dose Given 10/29/2023 9:40 AM SAP MANAGER 20 mg heparin flush 500 Units 500 Units, intra-catheter, As needed, line care, Starting on Angela 10/29/23 at 0933, When no infusion to maintain patency: For IVAD accessed, not in use, and/or prior to hospital discharge, flush every 7 days after 0.9% preservative-free NaCL flush. For IVAD NOT accessed or used, flush every 4 weeks after 0.9% preservative-free NaCL flush. Given 10/29/2023 10:45 AM SAP MANAGER 500 Units sodium chloride 0.9 % injection 10 mL 10 mL, intra-catheter, As needed, line care, Starting on Angela 10/29/23 at 0933, When IVAD Accessed and in Use: Flush prior to and following infusion, between multiple consecutive infusions, and prior to blood sampling. Given 10/29/2023 9:40 AM SAP MANAGER 10 mL documented in this encounter Additional Health Concerns Infection Onset Date Last Indicated Resolved Time Protective Environment 09/29/2023 09/29/2023 COVID19 10/15/2023 10/15/2023 11/04/2023 6:13 AM SAP MANAGER documented as of this encounter
--- OUTSIDE RECORDS SUMMARY | 2023-11-16 16:01 | XMS_ITS | Encounter Summary ---
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 [address] [place] [phone] [facility] Region Referral ID Status Reason Start Date Expiration Date V isits Requested Visits Authorized [id number] Authorized 04/27/2023 03/31/2024 14 14 Encounter Details Date Type Department Care Team (Late st Contact Info) Description 05/27/2023 10:00 AM CDT Lab Department of Infusion Therapy in [address] [place] [phone] Flakito Desai M.B.B.S. 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 [address] [place] [phone] 11/18/2023 10:00 AM HOT MILL WORKER Office Visit Department of Oncology in [address] [place] [phone] Flakito Desai M.B.B.S. [address] [place] [phone] 11/18/2023 10:30 AM HOT MILL WORKER Infusion Department of Infusion Therapy in [address] [place] [phone] Flakito Desai M.Antonietta.B.S. [address] [place] [phone] 11/19/2023 10:30 AM HOT MILL WORKER Infusion Department of Infusion Therapy in [address] [place] [phone] Flakito Desai M.B.B.S. [address] [place] [phone] 11/20/2023 10:30 AM HOT MILL WORKER Infusion Department of Infusion Therapy in [address] [place] [phone] Flakito Desai M.B.B.S. [address] [place] [phone] 12/07/2023 9:30 AM HOT MILL WORKER Lab Department of Infusion Therapy in [address] [place] [phone] Flakito Desai M.B.B.S. [address] [place] [phone] 12/07/2023 10:40 AM HOT MILL WORKER Office Visit Department of Oncology in [address] [place] [phone] Flakito Desai M.B.B.S. [address] [place] [phone] 12/07/2023 11:00 AM HOT MILL WORKER Infusion Department of Infusion Therapy in [address] [place] [phone] Flakito Desai M.B.B.S. [address] [place] [phone] 12/08/2023 10:30 AM HOT MILL WORKER Infusion Department of Infusion Therapy in [address] [place] [phone] Flakito Desai M.B.B.S. [address] [place] [phone] 12/09/2023 10:30 AM HOT MILL WORKER Infusion Department of Infusion Therapy in [address] [place]ZIER, [place] [phone] Flakito Desai M.B.B.S. 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 [place] [address], [address] [phone] * Phosphorus Inorganic (05/27/2023 10:08 AM CDT) Phosphorus (Inorganic), P 3.6 2.5 - 4.5 mg/dL 05/27/2023 10:34 AM CDT [facility] Blood (Blood, Venous) 05/27/2023 10:08 AM CDT 05/27/2023 10:12 AM CDT Flakito MurrietaSKeisha [place] [address], [facility] in [address] [address] * (ABNORMAL) Magnesium (05/27/2023 10:08 AM CDT) Magnesium, P 1.5(L) 1.7 - 2.3 mg/dL 05/27/2023 10:34 AM CDT [facility] Blood (Blood, Venous) 05/27/2023 10:08 AM CDT 05/27/2023 10:12 AM CDT Flakito MurrietaS. [place] [address], [place] [address] * (ABNORMAL) Comprehensive Metabolic Panel (05/27/2023 10:08 AM CDT) Potassium, P 4.4 3.6 - 5.2 mmol/L 05/27/2023 10:34 AM CDT [facility] Sodium, P 131(L) 135 - 145 mmol/L 05/27/2023 10:34 AM CDT [facility] Chloride, P 97(L) 98 - 107 mmol/L 05/27/2023 10:34 AM CDT [facility] Bicarbonate, P 25 22 - 29 mmol/L 05/27/2023 10:34 AM CDT [facility] Anion Gap, P 9 7 - 15 05/27/2023 10:34 AM CDT [facility] BUN (Blood Urea Nitrogen), P 11 8 - 24 mg/dL 05/27/2023 10:34 AM CDT [facility] Creatinine 0.78 0.74 - 1.35 mg/dL 05/27/2023 10:34 AM CDT [facility] Estimated GFR (eGFR) >90 >=60 mL/min/BS A 05/27/2023 10:34 AM CDT [facility] Comment: Estimated GFR calculated using the 2020 CKD_EPI creatinine equation. Calcium, Total, P 9.1 8.8 - 10.2 mg/dL 05/27/2023 10:34 AM CDT [facility] Glucose, P 154(H) 70 - 140 mg/dL 05/27/2023 10:34 AM CDT [facility] Protein, Total, P 6.0(L) 6.3 - 7.9 g/dL 05/27/2023 10:34 AM CDT [facility] Albumin, P 3.7 3.5 - 5.0 g/dL 05/27/2023 10:34 AM CDT [facility] Aspartate Aminotransferase (AST), P 20 8 - 48 U/L 05/27/2023 10:34 AM CDT [facility] Alkaline Phosphatase, P 168(H) 40 - 129 U/L 05/27/2023 10:34 AM CDT [facility] Alanine Aminotransferase (ALT), P 16 7 - 55 U/L 05/27/2023 10:34 AM CDT [facility] Bilirubin, Total, P 0.5 <=1.2 mg/dL 05/27/2023 10:34 AM CDT [facility] Blood (Blood, Venous) 05/27/2023 10:08 AM CDT 05/27/2023 10:12 AM CDT Flakito Choi LAB BLOOD ADD-ON [facility]- [address] [address], [facility] FRMT [facility] in [address] [address] * (ABNORMAL) CBC with Differential, Blood (05/27/2023 10:08 AM CDT) Hemoglobin 10.9(L) 13.2 - 16.6 g/dL 05/27/2023 10:14 AM CDT [facility] Hematocrit 32.0(L) 38.3 - 48.6 % 05/27/2023 10:14 AM CDT [facility] Erythrocytes 3.15(L) 4.35 - 5.65 x10(12)/L 05/27/2023 10:14 AM CDT [facility] MCV 101.6(H) 78.2 - 97.9 fL 05/27/2023 10:14 AM CDT [facility] RBC Distrib Width 15.7(H) 11.8 - 14.5 % 05/27/2023 10:14 AM CDT [facility] Platelet Count 240 135 - 317 x10(9)/L 05/27/2023 10:14 AM CDT [facility] Leukocytes 7.6 3.4 - 9.6 x10(9)/L 05/27/2023 10:14 AM CDT [facility] Neutrophils 5.62 1.56 - 6.45 x10(9)/L 05/27/2023 10:14 AM CDT [facility] Lymphocytes 1.00 0.95 - 3.07 x10(9)/L 05/27/2023 10:14 AM CDT [facility] Monocytes 0.86(H) 0.26 - 0.81 x10(9)/L 05/27/2023 10:14 AM CDT [facility] Eosinophils 0.03 0.03 - 0.48 x10(9)/L 05/27/2023 10:14 AM CDT [facility] Basophils 0.04 0.01 - 0.08 x10(9)/L 05/27/2023 10:14 AM CDT [facility] Blood (Blood, Venous) 05/27/2023 10:08 AM CDT 05/27/2023 10:12 AM CDT Flakito Choi LAB BLOOD ADD-ON [facility]- [address] [address], [facility] [place] [address] documented in this encounter Visit Diagnoses Diagnosis Malignant Primary Neoplasm (Unknown Site) Unspecified (HCC)- Primary 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 Given 05/27/2023 10:10 AM CDT 20 mL documented in this encounter Additional Health Concerns Infection Onset Date Last Indicated Resolved Time Protective Environment 04/15/2023 04/15/202306/30 6:36 AM CDT documented as of this encounter
--- OUTSIDE RECORDS SUMMARY | 2023-11-16 16:01 | XMS_ITS | Encounter Summary ---
Author Name Unknown Organization [facility] Address [address] [place] [address] Care Team Providers Care Medical Sonographer Name Role Phone Unavailable Primary Care Provider Unavailabl e Encounter Details Date Type Department Care Team (Late st Contact Info) Description 09/16/2023 Clinical Communication Department of Oncology in [address] [place] [phone] Laisha Mandujano R.N., O.C.N. [address] [place] [address] [place] [phone] Social History Tobacco Use Types Packs/Day Years [...] st Contact Info) Description 11/18/2023 9:00 AM USED EQUIPMENT SALES REPRESENTATIVE Lab Department of Infusion Therapy in [address] [place] [address] Flakito Desai M.B.B.S. [address] [place] [phone] 11/18/2023 10:00 AM USED EQUIPMENT SALES REPRESENTATIVE Office Visit Department of Oncology in [address] [place] [address] Flakito Desai M.B.B.S. [address] [place] [phone] 11/18/2023 10:30 AM USED EQUIPMENT SALES REPRESENTATIVE Infusion Department of Infusion Therapy in [address] [place] [address] Flakito Desai M.B.B.S. [address] [place] [phone] 11/19/2023 10:30 AM USED EQUIPMENT SALES REPRESENTATIVE Infusion Department of Infusion Therapy in [address] [place] [address] Flakito Desai M.B.B.S. [address] [place] [phone] 11/20/2023 10:30 AM USED EQUIPMENT SALES REPRESENTATIVE Infusion Department of Infusion Therapy in [address] [place] [address] Flakito Desai M.B.B.S. [address] [place] [phone] 12/07/2023 9:30 AM USED EQUIPMENT SALES REPRESENTATIVE Lab Department of Infusion Therapy in [address] [place] [address] Flakito Desai M.B.B.S. [address] [place] [address] 12/07/2023 10:40 AM USED EQUIPMENT SALES REPRESENTATIVE Office Visit Department of Oncology in [address] [place] [address] Flakito Desai M.B.B.S. [address] [place] [phone] 12/07/2023 11:00 AM USED EQUIPMENT SALES REPRESENTATIVE Infusion Department of Infusion Therapy in [address] [place] [address] Flakito Desai M.B.B.S. [address] [place] [phone] 12/08/2023 10:30 AM USED EQUIPMENT SALES REPRESENTATIVE Infusion Department of Infusion Therapy in [address] [place] [address] Flakito Desai M.B.B.S. [address] [place] [phone] 12/09/2023 10:30 AM USED EQUIPMENT SALES REPRESENTATIVE Infusion Department of Infusion Therapy in [address] [place] [address] Flakito Desai M.B.B.S. [address] [place] [phone] documented as of this encounter Visit Diagnoses Not on filedocumented in this encounter Additional Health Concerns Infection Onset Date Last Indicated Resolved Time Protective Environment 09/29/2023 09/29/2023 COVID19 10/15/2023 10/15/2023 11/04/2023 6:13 AM USED EQUIPMENT SALES REPRESENTATIVE documented as of this encounter
--- OUTSIDE RECORDS SUMMARY | 2023-11-16 16:01 | XMS_ITS | Encounter Summary ---
Author Name Unknown Organization 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 [address] [place] [address] [phone] [facility] Region Referral ID Status Reason Start Date Expiration Date V isits Requested Visits Authorized [id number] Authorized 04/27/2023 03/31/2024 14 14 Encounter Details Date Type Department Care Team (Late st Contact Info) Description 10/29/2023 7:20 AM FACILITATOR Lab Department of Infusion Therapy in [address] [phone] Flakito Desai M.B.B.S. [address] [place] [phone] Malignant Primary Neoplasm (Unknown Site) Unspecified (HCC) [...] st Contact Info) Description 11/18/2023 9:00 AM FACILITATOR Lab Department of Infusion Therapy in [address] [place] [address] Flakito Desai M.Antonietta.B.S. [address] [place] [phone] 11/18/2023 10:00 AM FACILITATOR Office Visit Department of Oncology in [address] [place] [phone] Flakito Desai M.B.B.S. [address] [place] [address] 11/18/2023 10:30 AM FACILITATOR Infusion Department of Infusion Therapy in [address] [place] [address] Flakito Desai M.B.B.S. [address] [place] [address] 11/19/2023 10:30 AM FACILITATOR Infusion Department of Infusion Therapy in [address] [place] [address] Flakito Desai M.B.B.S. [address] [place] [phone] 11/20/2023 10:30 AM FACILITATOR Infusion Department of Infusion Therapy in [address] [place] [address] Flakito Desai M.B.B.S. [address] [place] [phone] 12/07/2023 9:30 AM FACILITATOR Lab Department of Infusion Therapy in [address] [place] [address] Flakito Desai M.B.B.S. [address] [place] [phone] 12/07/2023 10:40 AM FACILITATOR Office Visit Department of Oncology in [address] [place] [address] Flakito Desai M.B.B.S. [address] [place] [phone] 12/07/2023 11:00 AM FACILITATOR Infusion Department of Infusion Therapy in [address] [place] [address] Flakito Desai M.B.B.S. [address] [place] [phone] 12/08/2023 10:30 AM FACILITATOR Infusion Department of Infusion Therapy in [address] [place] [address] Flakito Desai M.B.B.S. [address] [place] [phone] 12/09/2023 10:30 AM FACILITATOR Infusion Department of Infusion Therapy in [address] [place] [address] Flakito Desai M.B.B.S. 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 LAB BLOOD ADD-ON [facility] [address] [place] [phone], [facility] [address] [place] [phone] * Phosphorus Inorganic (10/29/2023 7:35 AM FACILITATOR) Phosphorus (Inorganic), P 3.5 2.5 - 4.5 mg/dL 10/29/2023 8:04 AM FACILITATOR MKTO Blood (Blood, Venous) 10/29/2023 7:35 AM FACILITATOR 10/29/2023 7:39 AM FACILITATOR Flakito PriceB.S. LAB BLOOD ADD-ON Performing Organization Address City/[facility]/ZIP Co de Phone Number [facility] [address] [place] [phone], [facility] [address] [place] [phone] * Magnesium (10/29/2023 7:35 AM FACILITATOR) Magnesium, P 1.9 1.7 - 2.3 mg/dL 10/29/2023 8:04 AM FACILITATOR TO Blood (Blood, Venous) 10/29/2023 7:35 AM FACILITATOR 10/29/2023 7:39 AM FACILITATOR Flakito PriceB.S. LAB BLOOD ADD-ON [facility] [address] [place] [phone], [facility] [address] [place] [phone] * Comprehensive Metabolic Panel (10/29/2023 7:35 AM FACILITATOR) Potassium, P 4.3 3.6 - 5.2 mmol/L 10/29/2023 8:04 AM FACILITATOR MKTO Sodium, P 135 135 - 145 mmol/L 10/29/2023 8:04 AM FACILITATOR MKTO Chloride, P 101 98 - 107 mmol/L 10/29/2023 8:04 AM FACILITATOR MKTO Bicarbonate, P 26 22 - 29 mmol/L 10/29/2023 8:04 AM FACILITATOR MKTO Anion Gap, P 8 7 - 15 10/29/2023 8:04 AM FACILITATOR MKTO BUN (Blood Urea Nitrogen), P 14 8 - 24 mg/dL 10/29/2023 8:04 AM FACILITATOR MKTO Creatinine 0.75 0.74 - 1.35 mg/dL 10/29/2023 8:04 AM FACILITATOR MKTO Estimated GFR (eGFR) >90 >=60 mL/min/BS A 10/29/2023 8:04 AM FACILITATOR MKTO Comment: Estimated GFR calculated using the 2020 CKD_EPI creatinine equation. Calcium, Total, P 9.3 8.8 - 10.2 mg/dL 10/29/2023 8:04 AM FACILITATOR MKTO Glucose, P 118 70 - 140 mg/dL 10/29/2023 8:04 AM FACILITATOR MKTO Protein, Total, P 6.8 6.3 - 7.9 g/dL 10/29/2023 8:04 AM FACILITATOR MKTO Albumin, P 4.0 3.5 - 5.0 g/dL 10/29/2023 8:04 AM FACILITATOR MKTO Aspartate Aminotransferase (AST), P 21 8 - 48 U/L 10/29/2023 8:04 AM FACILITATOR MKTO Alkaline Phosphatase, P 119 40 - 129 U/L 10/29/2023 8:04 AM FACILITATOR MKTO Alanine Aminotransferase (ALT), P 14 7 - 55 U/L 10/29/2023 8:04 AM FACILITATOR MKTO Bilirubin, Total, P 0.4 0.0 - 1.2 mg/dL 10/29/2023 8:04 AM FACILITATOR MKTO Blood (Blood, Venous) 10/29/2023 7:35 AM FACILITATOR 10/29/2023 7:39 AM FACILITATOR Flakito Choi LAB BLOOD ADD-ON [facility] [address] [place] [address], [facility] MKTO [facility] in [place] [address] [place] [address] * (ABNORMAL) CBC with Differential, Blood (10/29/2023 7:35 AM FACILITATOR) Hemoglobin 13.2 13.2 - 16.6 g/dL 10/29/2023 7:43 AM FACILITATOR MKTO Hematocrit 38.8 38.3 - 48.6 % 10/29/2023 7:43 AM FACILITATOR MKTO Erythrocytes 4.21(L) 4.35 - 5.65 x10(12)/L 10/29/2023 7:43 AM FACILITATOR MKTO MCV 92.2 78.2 - 97.9 fL 10/29/2023 7:43 AM FACILITATOR MKTO RBC Distrib Width 13.1 11.8 - 14.5 % 10/29/2023 7:43 AM FACILITATOR MKTO Platelet Count 274 135 - 317 x10(9)/L 10/29/2023 7:43 AM FACILITATOR MKTO Leukocytes 8.4 3.4 - 9.6 x10(9)/L 10/29/2023 7:43 AM FACILITATOR MKTO Neutrophils 6.17 1.56 - 6.45 x10(9)/L 10/29/2023 7:43 AM FACILITATOR MKTO Lymphocytes 1.24 0.95 - 3.07 x10(9)/L 10/29/2023 7:43 AM FACILITATOR MKTO Monocytes 0.77 0.26 - 0.81 x10(9)/L 10/29/2023 7:43 AM FACILITATOR MKTO Eosinophils 0.20 0.03 - 0.48 x10(9)/L 10/29/2023 7:43 AM FACILITATOR MKTO Basophils 0.04 0.01 - 0.08 x10(9)/L 10/29/2023 7:43 AM FACILITATOR MKTO Blood (Blood, Venous) 10/29/2023 7:35 AM FACILITATOR 10/29/2023 7:39 AM FACILITATOR Flakito Choi LAB BLOOD ADD-ON [facility] [address] [place] [address], [facility] MKTO [facility] in [place] [address] [place] [address] documented in this encounter Visit Diagnoses Diagnosis [...] line care, Starting on Angela 10/29/23 at 0724, When IVAD Accessed and in Use: Flush post blood transfusion or post blood sampling. Given 10/29/2023 7:24 AM FACILITATOR 20 mL documented in this encounter Additional Health Concerns Infection Onset Date Last Indicated Resolved Time Protective Environment 09/29/2023 09/29/2023 COVID19 10/15/2023 10/15/2023 11/04/2023 6:13 AM FACILITATOR documented as of this encounter
--- OUTSIDE RECORDS SUMMARY | 2023-11-16 16:01 | XMS_ITS | Encounter Summary ---
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 [address] [place] [address] [facility] Region Referral ID Status Reason Start Date Expiration Date V isits Requested Visits Authorized [id number] Authorized 04/27/2023 03/31/2024 14 14 Encounter Details Date Type Department Care Team ([facility] st Contact Info) Description 09/23/2023 1:20 PM RENTAL CLERK TOOL AND EQUIPMENT Office Visit Department of Oncology in [address] [place] [phone] Flakito Desai M.B.B.S. 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) Social History Tobacco Use Types Packs/Day [...] Sign Reading Time Taken Comments Blood Pressure 132/80 09/23/2023 1:12 PM RENTAL CLERK TOOL AND EQUIPMENT Pulse 81 09/23/2023 1:12 PM RENTAL CLERK TOOL AND EQUIPMENT Temperature 36.7 ??C (98.1 ??F) 09/23/2023 1:12 PM CS T Respiratory Rate - - Oxygen Saturation 98% 09/23/2023 1:12 PM RENTAL CLERK TOOL AND EQUIPMENT room air Inhaled Oxygen Concentration - - Weight 88.6 kg (195 lb 5.2 oz) 09/23/2023 1:12 P M RENTAL CLERK TOOL AND EQUIPMENT Height - - Body Mass Index 27.24 05/06/2023 8:38 AM CDT documented in this encounter Progress Notes * Flakito Desai M.B.B.S. - 09/23/2023 1:20 PM CST Images from the original note were not included. 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 03/13/ PET: Biopsy proven FDG-AVID Hepatic metastases. Probable right suprahilar and mediastinal eric metastases. Osseous metastases if clinically indicated, a subtle sclerotic lesion in the right posterior iliac bone can be biopsied under CT guidance. 03/18/2023 - Chemotherapy Carboplatin AUC 5 / Etoposide 50mg/m2 Cycle 03/18/23 Critical Imaging ED workup for Confusion at [facility], [place] 03/23/23 Xray Chest: The pericardial and mediastinal [...] 04/01/2023 - Chemotherapy Maintenance Atezolizumab started at [facility] on 07/29/23. Atezolizumab / CARBOplatin / Etoposide Start Date: 04/01/2023 Interim history He has been having loss of finger nails, it is not affecting all of his fingers. Could be a fungal infection that may have been exacerbated by chemotherapy, we discussed follow-up with primary care for further evaluation of this. He is planning to establish with Internal Medicine locally. He also asks about Spiriva, there was mention of possible COPD in the past, he is not certain about the diagnosis of COPD, he has been on Spiriva for several months, and his breathing is overall stable. 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 Also discussed if he has any breathing difficulty, prior to establishing, he should resume Spiriva. He is here with his supportive Bunny. He tolerated his last treatment well without any significant side effects except for nail changes And fatigue. Tolerating Eliquis well without any significant side effects. No bleeding diastasis. At prior visit we discussed: He does not have any stents. He [...] tablet Take 1 tablet by mouth daily. apixaban (Eliquis) 5 mg tablet Take 5 mg by mouth 2 (two) times a day. atorvastatin (LIPITOR) 10 mg tablet Take 10 mg by mouth daily. cephalexin (KEFLEX) 500 mg capsule Take 1 capsule (500 mg total) by mouth every 6 (six) hours for 14 days. Uses only as needed per urology cholecalciferol, vitD3,/vit K2 (vitamin D3-vitamin K2) 125-90 mcg capsule Take 1 capsule by mouth daily. dilTIAZem CD (CARDIZEM CD/CARTIA XT) 240 mg 24 hr capsule fluticasone propionate (FLONASE) 50 mcg/actuation nasal spray Administer 2 sprays into nostril(s) daily. magnesium oxide (MAG-OX) 400 mg (241.3 mg magnesium) tablet Take 1 tablet by mouth daily. polyethylene glycol (MIRALAX) 17 gram powder packet Take 17 g by mouth daily as needed for constipation. Dissolve each 17 g dose in 240 mLs (8 ounces) of beverage. potassium chloride (KLORCON/K-TAB) 10 mEq ER tablet Take 10 mEq by mouth 2 (two) times a day. sodium chloride 1 gram tablet Take 1 g by mouth. tiotropium (Spiriva Respimat) 2.5 mcg/actuation inhaler Inhale 2 puffs daily. apixaban (ELIQUIS) 5 mg tablet Take 2 tablets (10 mg total) by mouth 2 (two) times a day for 7 days, THEN 1 tablet (5 mg total) 2 (two) times a day. LORazepam (ATIVAN) 0.5 mg tablet TAKE 1 TABLET BY MOUTH EVERY 8 HOURS NEEDED FOR NAUSEA/VOMITING/ANXIETY. IF INEFFECTIVE MAY REPEAT ONCE AFTER 30MINS. mupirocin (BACTROBAN) 2 % ointment Apply 1 Application topically 3 (three) times a day. Apply to outer lip. (Patient not taking: Reported on 05/06/2023) ondansetron (ZOFRAN) 8 mg tablet Take 8 mg by mouth every 8 (eight) hours as needed for nausea. prochlorperazine (COMPAZINE) 10 mg tablet Take 1 tablet by mouth every 6 (six) hours as needed for nausea. triamcinolone (KENALOG) 0.1 % dental paste Apply 1 Application to the mouth or throat 3 (three) times a day. (Patient not taking: Reported on 05/06/2023) No past medical history on file. No past surgical history on file. No family history on file. Social History Tobacco Use Smoking status: Former Types: Cigarettes Quit date: 1978 Years since quittin.9 Passive exposure: Never Smokeless tobacco: Never Tobacco comments: Quit 46 years ago. Vaping Use Vaping Use: never used Substance Use Topics Alcohol use: Not Currently Drug use: Never OBJECTIVE ECOG Score: 1-2 Vitals: 09/23/23 1312 BP: 132/80 Pulse: 81 Temp: 36.7 ??C SpO2: 98% Wt Readings from Last 3 Encounters: 09/23/23 88.6 kg 05/27/23 90.6 kg 05/06/23 89.8 kg Vitals and nursing note reviewed. Constitutional General: he is not in acute distress. Appearance: he is not ill-appearing, toxic-appearing or diaphoretic. Cardiovascular Rate and Rhythm: Normal rate. Heart sounds normal, breath sounds normal Pulmonary Effort: Pulmonary effort is normal. Neurological Mental Status: he is alert and oriented to person, place, and time. Psychiatric Mood and Affect: Mood normal. Behavior: Behavior normal. Thought Content: Thought content normal. Judgment: Judgment normal. Port clean dry and intact LABORATORY DATA Recent Results (from the past 24 hour(s)) CBC with Differential, Blood Collection Time: 09/23/23 12:16 PM Result Value Hemoglobin 12.2 (L) Hematocrit 36.1 (L) Erythrocytes 3.71 (L) MCV 97.3 RBC Distrib Width 13.2 Platelet Count 198 Leukocytes 6.3 Neutrophils 4.41 Lymphocytes 0.95 Monocytes 0.78 Eosinophils 0.11 Basophils <0.03 Comprehensive Metabolic Panel Collection Time: 09/23/23 12:16 PM Result Value Potassium, P 4.1 Sodium, P 131 (L) Chloride, P 98 Bicarbonate, P 26 Anion Gap, P 7 BUN (Blood Urea Nitrogen), P 13 Creatinine 0.69 (L) Estimated GFR (eGFR) >90 Calcium, Total, P 9.2 Glucose, P 112 Protein, Total, P 6.7 Albumin, P 4.1 Aspartate Aminotransferase (AST), P 22 Alkaline Phosphatase, P 113 Alanine Aminotransferase (ALT), P 13 Bilirubin, Total, P 0.3 Magnesium Collection Time: 09/23/23 12:16 PM Result Value Magnesium, P 1.8 Phosphorus Inorganic Collection Time: 09/23/23 12:16 PM Result Value Phosphorus (Inorganic), P 3.3 Thyroid Function [place] Collection Time: 09/23/23 12:16 PM Result Value TSH, Sensitive 1.0 RADIOLOGICAL DATA Radiology data reviewed. 03/05/2023 liver [...] 07/29/2023- He has stage IV small-cell cancer. MRI brain 03/13/2023 did not show metastatic disease. It was uncertain the origin of his small-cell cancer, approach at [facility] was for extrapulmonary small-cell with carboplatin etoposide. 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 Clinical examination stable. Labs stable. He requests a prescription for Keflex, which was previously prescribed by urologist To be used as needed, he is presently trying to establish with his other doctors, we will facilitate prescription of Keflex in the interim. -continue maintenance atezolizumab -PET scan Early October -fax for prior imaging MRI brain and PET scan -will monitor MRI brain every 6 months - continue with salt tablets for hyponatremia Regimen atezolizumab 1200 mg D1 every 21 days //Unprovoked Right lower extremity DVT Dx 05/06/2023 in the setting of malignancy -Continue Eliquis 5 mg twice daily as long as bleeding does not become an issue. - previously recommended bridging if any surgery within the 1st 6 months of his clot //left knee degenerative joint requiring surgery, recommend bridging Bridging recommendation: Recommend last dose of Eliquis to be taken 3 days prior to procedure. Recommend Lovenox 1 milligram/kilograms subcutaneously every 24 hours starting on day -2 through day [...] 2012 without residual deficits Hypertension Gout Nail changes- Spiriva management -follow up with PCP for the above comorbidities Follow up: Continue treatment per protocol, follow-up per protocol,, obtain prior imaging Patient was encouraged to keep us informed [...] questions or concerns prior to next appointment. Glenny BlackburnS. 2:29 PM RENTAL CLERK TOOL AND EQUIPMENT 09/23/23 I personally spent 20 minutes in care of the patient today. This time includes both face to face and non-face to face time. 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 Uses only as needed per urology, Starting Thu09/23/2023, Until Thu09/30/2023, Normal AL CLERK TOOL AND EQUIPMENT documented in this encounter Plan of Treatment Upcoming Encounters Date Type Department Care Team (Late st Contact Info) Description 11/18/2023 9:00 AM RENTAL CLERK TOOL AND EQUIPMENT Lab Department of Infusion Therapy in [address] [place] [phone] Flakito Desai M.B.B.S. [address] [place] [phone] 11/18/2023 10:00 AM RENTAL CLERK TOOL AND EQUIPMENT Office Visit Department of Oncology in [address] [place] [phone] Flakito Desai M.B.B.S. [address] [place] [phone] 11/18/2023 10:30 AM RENTAL CLERK TOOL AND EQUIPMENT Infusion Department of Infusion Therapy in [address] [place] [phone] Flakito Desai M.B.B.S. [address] [place] [phone] 11/19/2023 10:30 AM RENTAL CLERK TOOL AND EQUIPMENT Infusion Department of Infusion Therapy in [address] [place] [phone] Flakito Desai M.B.B.S. [address] [place] [phone] 11/20/2023 10:30 AM RENTAL CLERK TOOL AND EQUIPMENT Infusion Department of Infusion Therapy in [address] [place] [phone] Flakito Desai M.B.B.S. [address] [place] [phone] 12/07/2023 9:30 AM RENTAL CLERK TOOL AND EQUIPMENT Lab Department of Infusion Therapy in [address] [place] [phone] Flakito Desai M.B.B.S. [address] [place] [phone] 12/07/2023 10:40 AM RENTAL CLERK TOOL AND EQUIPMENT Office Visit Department of Oncology in [address] [place] [phone] Flakito Desai M.B.B.S. [address] [place] [phone] 12/07/2023 11:00 AM RENTAL CLERK TOOL AND EQUIPMENT Infusion Department of Infusion Therapy in [address] [place] [phone] Flakito Desai M.B.B.S. [address] [place] [phone] 12/08/2023 10:30 AM RENTAL CLERK TOOL AND EQUIPMENT Infusion Department of Infusion Therapy in [address] [place] [phone] Flakito Desai M.B.B.S. [address] [place] [phone] 12/09/2023 10:30 AM RENTAL CLERK TOOL AND EQUIPMENT Infusion Department of Infusion Therapy in [address] [place] [phone] Flakito Desai M.B.B.S. 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
--- OUTSIDE RECORDS SUMMARY | 2023-11-16 16:01 | XMS_ITS | Encounter Summary ---
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 [address] [place] [address] [phone] [facility] Region Referral ID Status Reason Start Date Expiration Date V isits Requested Visits Authorized [id number] Authorized 04/27/2023 03/31/2024 14 14 Encounter Details Date Type Department Care Team (Late st Contact Info) Description 09/29/2023 1:45 PM AIRPORT ENGINEER Infusion Department of Infusion Therapy in [place], [place] [address] [place] [phone] Flakito Desai M.B.B.S. [address] [place] [phone] Malignant Primary Neoplasm (Unknown Site) Unspecified (HCC) [...] st Contact Info) Description 11/18/2023 9:00 AM AIRPORT ENGINEER Lab Department of Infusion Therapy in [address] [place] [phone] Flakito Desai M.B.B.S. [address] [place] [phone] 11/18/2023 10:00 AM AIRPORT ENGINEER Office Visit Department of Oncology in [address] [place] [phone] Flakito Desai M.B.B.S. [address] [place] [phone] 11/18/2023 10:30 AM AIRPORT ENGINEER Infusion Department of Infusion Therapy in [address] [place] [phone] Flakito Desai M.B.B.S. [address] [place] [phone] 11/19/2023 10:30 AM AIRPORT ENGINEER Infusion Department of Infusion Therapy in [address] [place] [phone] Flakito Desai M.B.B.S. [address] [place] [phone] 11/20/2023 10:30 AM AIRPORT ENGINEER Infusion Department of Infusion Therapy in [address] [place] [phone] Flakito Desai M.B.B.S. [address] [place] [phone] 12/07/2023 9:30 AM AIRPORT ENGINEER Lab Department of Infusion Therapy in [address] [place] [phone] Flakito Desai M.B.B.S. [address] [place] [phone] 12/07/2023 10:40 AM AIRPORT ENGINEER Office Visit Department of Oncology in [address] [place] [phone] Flakito Desai M.B.B.S. [address] [place] [phone] 12/07/2023 11:00 AM AIRPORT ENGINEER Infusion Department of Infusion Therapy in [address] [place] [phone] Flakito Desai M.B.B.S. [address] [place] [phone] 12/08/2023 10:30 AM AIRPORT ENGINEER Infusion Department of Infusion Therapy in [address] [place] [phone] Flakito Desai M.B.B.S. [address] [place] [phone] 12/09/2023 10:30 AM AIRPORT ENGINEER Infusion Department of Infusion Therapy in [address] [place], [place] [phone] Flakito Desai M.B.B.S. [address] [place] [phone] documented as of this encounter Visit Diagnoses [...] mL/hr, Administer over 30 Minutes, Once, On Thu09/29/23 at 1415, For 1 dose, If the first infusion is tolerated, all subsequent infusions may be delivered over 30 minutes. Do not administer as an intravenous push or bolus. Do not co-administer other drugs through the same intravenous line. Do NOT shake. New Bag 09/29/2023 2:41 PM AIRPORT ENGINEER 1,200 mg 590 mL/hr famotidine injection 20 mg (PEPCID) 20 mg, intravenous, Once, On Thu09/29/23 at 1415, For 1 dose Given 09/29/2023 2:03 PM AIRPORT ENGINEER 20 mg heparin flush 500 Units 500 Units, intra-catheter, As needed, line care, Starting on Thu09/29/23 at 1337, When no infusion to maintain patency: For IVAD accessed, not in use, and/or prior to hospital discharge, flush every 7 days after 0.9% preservative-free NaCL flush. For IVAD NOT accessed or used, flush every 4 weeks after 0.9% preservative-free NaCL flush. Given 09/29/2023 3:16 PM AIRPORT ENGINEER 500 Units sodium chloride 0.9 % injection 20 mL 20 mL, intra-catheter, As needed, line care, Starting on Thu09/29/23 at 1337, When IVAD Accessed and in Use: Flush post blood transfusion or post blood sampling. Given 09/29/2023 3:16 PM AIRPORT ENGINEER 20 mL documented in this encounter Additional Health Concerns Infection Onset Date Last Indicated Resolved Time Protective Environment 09/29/2023 09/29/2023 documented as of this encounter
--- OUTSIDE RECORDS SUMMARY | 2023-11-16 16:01 | XMS_ITS | Encounter Summary ---
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 [address] [place] [address] [facility] Region Referral ID Status Reason Start Date Expiration Date V isits Requested Visits Authorized [id number] Authorized 04/27/2023 03/31/2024 14 14 Encounter Details Date Type Department Care Team (Late st Contact Info) Description 05/29/2023 11:30 AM CDT Infusion Department of Infusion Therapy in [address] [place] [phone] Flakito Desai M.B.B.S. [address] [place] [phone] Malignant Neoplasm Of Unspecified Part Of Lung [...] st Contact Info) Description 11/18/2023 9:00 AM SAFETY AND SECURITY OFFICER Lab Department of Infusion Therapy in [address] [place] [address] Flakito Desai M.B.B.S. [address] [place] [phone] 11/18/2023 10:00 AM SAFETY AND SECURITY OFFICER Office Visit Department of Oncology in [address] [place] [phone] Flakito Desai M.B.B.S. [address] [place] [phone] 11/18/2023 10:30 AM SAFETY AND SECURITY OFFICER Infusion Department of Infusion Therapy in [address] [place] [phone] Flakito Desai M.Antonietta.B.S. [address] [place] [phone] 11/19/2023 10:30 AM SAFETY AND SECURITY OFFICER Infusion Department of Infusion Therapy in [address] [place] [phone] Flakito Desai M.B.B.S. [address] [place] [phone] 11/20/2023 10:30 AM SAFETY AND SECURITY OFFICER Infusion Department of Infusion Therapy in [address] [place] [phone] Flakito Desai M.B.B.S. [address] [place] [phone] 12/07/2023 9:30 AM SAFETY AND SECURITY OFFICER Lab Department of Infusion Therapy in [address] [place] [phone] Flakito Desai M.B.B.S. [address] [place] [phone] 12/07/2023 10:40 AM SAFETY AND SECURITY OFFICER Office Visit Department of Oncology in [address] [place] [phone] Flakito Desai M.B.B.S. [address] [place] [phone] 12/07/2023 11:00 AM SAFETY AND SECURITY OFFICER Infusion Department of Infusion Therapy in [address] [place] [phone] Flakito Desai M.B.B.S. [address] [place] [phone] 12/08/2023 10:30 AM SAFETY AND SECURITY OFFICER Infusion Department of Infusion Therapy in [address] [place] [address] Flakito Desai M.B.B.S. [address] [place] [phone] 12/09/2023 10:30 AM SAFETY AND SECURITY OFFICER Infusion Department of Infusion Therapy in [address] [place], [place] [phone] Flakito Desai M.B.B.S. 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 2.08 m2 Order-specific BSA), intravenous, at 554 mL/hr, Administer over 60 Minutes, Once, On Thu05/29/23 at 1145, For 1 dose, HAZARDOUS - Handle with care. Solutions should be checked carefully for precipitation before and during administration. Discard if precipitation occurs. Ensure bag is DEHP-free. Administer with non-DEHP containing tubing. New Bag 05/29/2023 11:55 AM CDT 120 mg 554 mL/hr heparin flush 500 Units 500 Units, intra-catheter, As needed, line care, Starting on Thu05/29/23 at 1208, When no infusion to maintain patency: For IVAD accessed, not in use, and/or prior to hospital discharge, flush every 7 days after 0.9% preservative-free NaCL flush. For IVAD NOT accessed or used, flush every 4 weeks after 0.9% preservative-free NaCL flush. Given 05/29/2023 1:09 PM CDT 500 Units ondansetron (PF) injection 8 mg (ZOFRAN) 8 mg, intravenous, Once, On Thu05/29/23 at 1145, For 1 dose Given 05/29/2023 11:37 AM CDT 8 mg pegfilgrastim on-body injector 6 mg (NEULASTA ONPRO) 6 mg, subcutaneous, Once, On Thu05/29/23 at 1145, For 1 dose, I discussed options with patient: Did not discuss with patient Given 05/29/2023 12:04 PM CDT 6 mg Right Upper Abdomen documented in this encounter Additional Health Concerns Infection Onset Date Last Indicated Resolved Time Protective Environment 04/15/2023 04/15/202306/30 6:36 AM CDT documented as of this encounter
--- OUTSIDE RECORDS SUMMARY | 2023-11-16 16:01 | XMS_ITS | Encounter Summary ---
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 [address] [place] [address] [facility] Region Referral ID Status Reason Start Date Expiration Date V isits Requested Visits Authorized [id number] Authorized 04/27/2023 03/31/2024 14 14 Encounter Details Date Type Department Care Team (Late st Contact Info) Description 09/23/2023 12:00 PM TRANSCRIBING OPERATORS SUPERVISOR Lab Department of Infusion Therapy in [address] [place] [address] Flakito Desai M.B.B.S. [address] [place] [phone] Malignant Primary Neoplasm (Unknown Site) Unspecified (HCC) [...] st Contact Info) Description 11/18/2023 9:00 AM TRANSCRIBING OPERATORS SUPERVISOR Lab Department of Infusion Therapy in [address] [place] [address] Flakito Desai M.B.B.S. [address] [place] [phone] 11/18/2023 10:00 AM TRANSCRIBING OPERATORS SUPERVISOR Office Visit Department of Oncology in [address] [place] [address] Flakito Desai M.B.B.S. [address] [place] [phone] 11/18/2023 10:30 AM TRANSCRIBING OPERATORS SUPERVISOR Infusion Department of Infusion Therapy in [address] [place] [address] Flakito Desai M.B.B.S. [address] [place] [phone] 11/19/2023 10:30 AM TRANSCRIBING OPERATORS SUPERVISOR Infusion Department of Infusion Therapy in [address] [place] [address] Flakito Desai M.B.B.S. [address] [place] [phone] 11/20/2023 10:30 AM TRANSCRIBING OPERATORS SUPERVISOR Infusion Department of Infusion Therapy in [address] [place] [address] Flakito Desai M.B.B.S. [address] [place] [phone] 12/07/2023 9:30 AM TRANSCRIBING OPERATORS SUPERVISOR Lab Department of Infusion Therapy in [address] [place] [address] Flakito Desai M.B.B.S. [address] [place] [phone] 12/07/2023 10:40 AM TRANSCRIBING OPERATORS SUPERVISOR Office Visit Department of Oncology in [address] [place] [address] Flakito Desai M.B.B.S. [address] [place] [phone] 12/07/2023 11:00 AM TRANSCRIBING OPERATORS SUPERVISOR Infusion Department of Infusion Therapy in [address] [place] [address] Flakito Desai M.B.B.S. [address] [place] [phone] 12/08/2023 10:30 AM TRANSCRIBING OPERATORS SUPERVISOR Infusion Department of Infusion Therapy in [address] [place] [address] Flakito Desai M.B.B.S. [address] [place] [address] 12/09/2023 10:30 AM TRANSCRIBING OPERATORS SUPERVISOR Infusion Department of Infusion Therapy in [address] [place], [place] [phone] Flakito Desai M.B.B.S. 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) MAGNESIUM, S Routine 09/23/2023 12:16 PM TRANSCRIBING OPERATORS SUPERVISOR 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 LAB BLOOD ADD-ON [address] [address], [address] [address] * Phosphorus Inorganic (09/23/2023 12:16 PM TRANSCRIBING OPERATORS SUPERVISOR) Phosphorus (Inorganic), P 3.3 2.5 - 4.5 mg/dL 09/23/2023 12:40 PM TRANSCRIBING OPERATORS SUPERVISOR [facility] Blood (Blood, Venous) 09/23/2023 12:16 PM TRANSCRIBING OPERATORS SUPERVISOR 09/23/2023 12:21 PM TRANSCRIBING OPERATORS SUPERVISOR Flakito MurrietaS. LAB BLOOD ADD-ON Performing Organization Address City/[facility]/ZIP Co de Phone Number [address] [address], [address] [address] * Magnesium (09/23/2023 12:16 PM TRANSCRIBING OPERATORS SUPERVISOR) Magnesium, P 1.8 1.7 - 2.3 mg/dL 09/23/2023 12:40 PM TRANSCRIBING OPERATORS SUPERVISOR [facility] Blood (Blood, Venous) 09/23/2023 12:16 PM TRANSCRIBING OPERATORS SUPERVISOR 09/23/2023 12:21 PM TRANSCRIBING OPERATORS SUPERVISOR Flakito PriceB.S. LAB BLOOD ADD-ON Performing Organization Address City/[facility]/ZIP Co de Phone Number [address] [address], [place] [address] * (ABNORMAL) Comprehensive Metabolic Panel (09/23/2023 12:16 PM TRANSCRIBING OPERATORS SUPERVISOR) Potassium, P 4.1 3.6 - 5.2 mmol/L 09/23/2023 12:40 PM TRANSCRIBING OPERATORS SUPERVISOR [facility] Sodium, P 131(L) 135 - 145 mmol/L 09/23/2023 12:40 PM TRANSCRIBING OPERATORS SUPERVISOR [facility] Chloride, P 98 98 - 107 mmol/L 09/23/2023 12:40 PM TRANSCRIBING OPERATORS SUPERVISOR [facility] Bicarbonate, P 26 22 - 29 mmol/L 09/23/2023 12:40 PM TRANSCRIBING OPERATORS SUPERVISOR [facility] Anion Gap, P 7 7 - 15 09/23/2023 12:40 PM TRANSCRIBING OPERATORS SUPERVISOR [facility] BUN (Blood Urea Nitrogen), P 13 8 - 24 mg/dL 09/23/2023 12:40 PM TRANSCRIBING OPERATORS SUPERVISOR [facility] Creatinine 0.69(L) 0.74 - 1.35 mg/dL 09/23/2023 12:40 PM TRANSCRIBING OPERATORS SUPERVISOR [facility]MT Estimated GFR (eGFR) >90 >=60 mL/min/BS A 09/23/2023 12:40 PM TRANSCRIBING OPERATORS SUPERVISOR FRMT Comment: Estimated GFR calculated using the 2020 CKD_EPI creatinine equation. Calcium, Total, P 9.2 8.8 - 10.2 mg/dL 09/23/2023 12:40 PM TRANSCRIBING OPERATORS SUPERVISOR FRMT Glucose, P 112 70 - 140 mg/dL 09/23/2023 12:40 PM TRANSCRIBING OPERATORS SUPERVISOR FRMT Protein, Total, P 6.7 6.3 - 7.9 g/dL 09/23/2023 12:40 PM TRANSCRIBING OPERATORS SUPERVISOR FRMT Albumin, P 4.1 3.5 - 5.0 g/dL 09/23/2023 12:40 PM TRANSCRIBING OPERATORS SUPERVISOR [facility]MT Aspartate Aminotransferase (AST), P 22 8 - 48 U/L 09/23/2023 12:40 PM TRANSCRIBING OPERATORS SUPERVISOR FRMT Alkaline Phosphatase, P 113 40 - 129 U/L 09/23/2023 12:40 PM TRANSCRIBING OPERATORS SUPERVISOR FRMT Alanine Aminotransferase (ALT), P 13 7 - 55 U/L 09/23/2023 12:40 PM TRANSCRIBING OPERATORS SUPERVISOR FRMT Bilirubin, Total, P 0.3 0.0 - 1.2 mg/dL 09/23/2023 12:40 PM TRANSCRIBING OPERATORS SUPERVISOR FR[facility] Blood (Blood, Venous) 09/23/2023 12:16 PM TRANSCRIBING OPERATORS SUPERVISOR 09/23/2023 12:21 PM TRANSCRIBING OPERATORS SUPERVISOR Flakito Choi LAB BLOOD ADD-ON [facility]- [address] [address], [facility] FRMT [facility] in [address] [address] * (ABNORMAL) CBC with Differential, Blood (09/23/2023 12:16 PM TRANSCRIBING OPERATORS SUPERVISOR) Hemoglobin 12.2(L) 13.2 - 16.6 g/dL 09/23/2023 12:24 PM TRANSCRIBING OPERATORS SUPERVISOR FRMT Hematocrit 36.1(L) 38.3 - 48.6 % 09/23/2023 12:24 PM TRANSCRIBING OPERATORS SUPERVISOR FRMT Erythrocytes 3.71(L) 4.35 - 5.65 x10(12)/L 09/23/2023 12:24 PM TRANSCRIBING OPERATORS SUPERVISOR FRMT MCV 97.3 78.2 - 97.9 fL 09/23/2023 12:24 PM TRANSCRIBING OPERATORS SUPERVISOR FRMT RBC Distrib Width 13.2 11.8 - 14.5 % 09/23/2023 12:24 PM TRANSCRIBING OPERATORS SUPERVISOR FRMT Platelet Count 198 135 - 317 x10(9)/L 09/23/2023 12:24 PM TRANSCRIBING OPERATORS SUPERVISOR FRMT Leukocytes 6.3 3.4 - 9.6 x10(9)/L 09/23/2023 12:24 PM TRANSCRIBING OPERATORS SUPERVISOR FRMT Neutrophils 4.41 1.56 - 6.45 x10(9)/L 09/23/2023 12:23 PM TRANSCRIBING OPERATORS SUPERVISOR FRMT Lymphocytes 0.95 0.95 - 3.07 x10(9)/L 09/23/2023 12:24 PM TRANSCRIBING OPERATORS SUPERVISOR FRMT Monocytes 0.78 0.26 - 0.81 x10(9)/L 09/23/2023 12:24 PM TRANSCRIBING OPERATORS SUPERVISOR FRMT Eosinophils 0.11 0.03 - 0.48 x10(9)/L 09/23/2023 12:24 PM TRANSCRIBING OPERATORS SUPERVISOR FRMT Basophils <0.03 0.01 - 0.08 x10(9)/L 09/23/2023 12:24 PM TRANSCRIBING OPERATORS SUPERVISOR FRMT Blood (Blood, Venous) 09/23/2023 12:16 PM TRANSCRIBING OPERATORS SUPERVISOR 09/23/2023 12:21 PM TRANSCRIBING OPERATORS SUPERVISOR Flakito Choi LAB BLOOD ADD-ON [facility] [address] [address], [facility] in [address] [address] documented in this encounter Visit Diagnoses Diagnosis Malignant Primary Neoplasm (Unknown Site) Unspecified (HCC)- Primary 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 For IVAD NOT accessed or used, flush every 4 weeks after 0.9% preservative-free NaCL flush. Given 09/23/2023 12:22 PM TRANSCRIBING OPERATORS SUPERVISOR 500 Units sodium chloride 0.9 % injection 20 mL 20 mL, intra-catheter, As needed, line care, Starting on Thu09/23/23 at 1147, When IVAD Accessed and in Use: Flush post blood transfusion or post blood sampling. Given 09/23/2023 12:22 PM TRANSCRIBING OPERATORS SUPERVISOR 20 mL documented in this encounter
--- OUTSIDE RECORDS SUMMARY | 2023-11-16 16:01 | XMS_ITS | Encounter Summary ---
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 [address] [place] [address] [facility] Region Referral ID Status Reason Start Date Expiration Date V isits Requested Visits Authorized [id number] Authorized 04/27/2023 03/31/2024 14 14 Encounter Details Date Type Department Care Team (Late st Contact Info) Description 05/28/2023 11:30 AM CDT Infusion Department of Infusion Therapy in [address] [place] [address] Flakito Desai M.B.B.S. [address] [place] [phone] Malignant Neoplasm Of Unspecified Part Of Lung [...] Sign Reading Time Taken Comments Blood Pressure 104/70 05/28/2023 12:16 PM CDT Pulse 85 05/28/2023 12:16 PM CDT Temperature 36.7 ??C (98.1 ??F) 05/28/2023 12:16 PM C DT Respiratory Rate - - Oxygen Saturation - - Inhaled Oxygen Concentration - - Weight - - Height - - Body Mass Index - - documented in this encounter Plan of Treatment Upcoming Encounters Date Type Department Care Team (Late st Contact Info) Description 11/18/2023 9:00 AM TANKERMAN Lab Department of Infusion Therapy in [address] [place] [address] Flakito Desai, [place].B.B.S. [address] [place] [address] 11/18/2023 10:00 AM TANKERMAN Office Visit Department of Oncology in [address] [place] [address] Flakito Desai M.B.B.S. [address] [place] [address] 11/18/2023 10:30 AM TANKERMAN Infusion Department of Infusion Therapy in [address] [place] [address] Flakito Desai M.B.B.S. [address] [place] [phone] 11/19/2023 10:30 AM TANKERMAN Infusion Department of Infusion Therapy in [address] [place] [address] Flakito Desai M.B.B.S. [address] [place] [phone] 11/20/2023 10:30 AM TANKERMAN Infusion Department of Infusion Therapy in [address] [place] [address] Flakito Desai M.B.B.S. [address] [place] [phone] 12/07/2023 9:30 AM TANKERMAN Lab Department of Infusion Therapy in [address] [place] [address] Flakito Desai M.B.B.S. [address] [place] [phone] 12/07/2023 10:40 AM TANKERMAN Office Visit Department of Oncology in [address] [place] [address] Flakito Desai M.B.B.S. [address] [place] [phone] 12/07/2023 11:00 AM TANKERMAN Infusion Department of Infusion Therapy in [address] [place] [address] Flakito Desai M.B.B.S. [facility] [place] [address] 12/08/2023 10:30 AM TANKERMAN Infusion Department of Infusion Therapy in [address] [place] [address] Flakito Desai M.B.B.S. [address] [place] [phone] 12/09/2023 10:30 AM TANKERMAN Infusion Department of Infusion Therapy in [address] [place] [address] Flakito Desai M.B.B.S. [address] [place] [phone] documented as of this encounter Visit Diagnoses [...] mL/hr, Administer over 60 Minutes, Once, On Angela 05/28/23 at 1200, For 1 dose, HAZARDOUS - Handle with care. Solutions should be checked carefully for precipitation before and during administration. Discard if precipitation occurs. Ensure bag is DEHP-free. Administer with non-DEHP containing tubing. New Bag 05/28/2023 11:48 AM CDT 120 mg 554 mL/hr heparin flush 500 Units 500 Units, intra-catheter, As needed, line care, Starting on Angela 05/28/23 at 1159, When no infusion to maintain patency: For IVAD accessed, not in use, and/or prior to hospital discharge, flush every 7 days after 0.9% preservative-free NaCL flush. For IVAD NOT accessed or used, flush every 4 weeks after 0.9% preservative-free NaCL flush. Given 05/28/2023 12:51 PM CDT 500 Units ondansetron (PF) injection 8 mg (ZOFRAN) 8 mg, intravenous, Once, On Angela 05/28/23 at 1200, For 1 dose Given 05/28/2023 11:44 AM CDT 8 mg documented in this encounter Additional Health Concerns Infection Onset Date Last Indicated Resolved Time Protective Environment 04/15/2023 04/15/202306/30 6:36 AM CDT documented as of this encounter
--- OUTSIDE RECORDS SUMMARY | 2023-11-16 16:01 | XMS_ITS | Encounter Summary ---
Author Name Unknown Organization [facility] Address [address] [place] [address] Care Team Providers Care Manager Radio Name Role Phone Unavailable Primary Care Provider Unavailabl e Reason for Visit * Reason Comments Med Refill Encounter Details Date Type Department Care Team (Late st Contact Info) Description 10/02/2023 Refill Department of Oncology in [place], [place] [address] [place] [address] Flakito Desai M.B.B.S. [address] [place] [phone] Med Refill Social History Tobacco Use Types [...] encounter Miscellaneous Notes * Telephone Encounter - Zeferino Erickson 10/02/2023 12:26 PM CST Thank you very much for your consideration in this matter of this request. Recent Visits Date Type Provider Dept 09/23/23 Office [facility] 05/27/23 Office Visit Flakito Desai M.B.B.S. [facility] Hem Onc Fa 05/06/23 Office Visit Flakito Desai M.B.B.S. [facility] Hem Onc Fa 04/08/23 Comprehensive Visit Flakito Desai M.B.B.S. [facility] Hem Onc [facility] Showing recent visits within past 365 days with a meds authorizing provider and meeting all other requirements Future Appointments Date Type Provider Dept 10/20/23 Appointment Flakito Desai M.B.B.S. [facility] Hem Onc [facility] 11/10/23 Appointment Flakito Desai M.B.B.S. [facility] Hem Onc [facility] Showing future appointments within next 90 days with a meds authorizing provider and meeting all other requirements TERIA SUPERVISOR documented in this encounter Plan of Treatment Upcoming Encounters Date Type Department Care Team (Late st Contact Info) Description 11/18/2023 9:00 AM CAFETERIA SUPERVISOR Lab Department of Infusion Therapy in [address] [place] [address] Flakito Desai M.B.BKeishaS. [address] [place] [phone] 11/18/2023 10:00 AM CAFETERIA SUPERVISOR Office Visit Department of Oncology in [address] [place] [address] Flakito Desai M.B.B.S. [address] [place] [phone] 11/18/2023 10:30 AM CAFETERIA SUPERVISOR Infusion Department of Infusion Therapy in [address] [place] [address] Flakito Desai M.B.B.S. [address] [place] [phone] 11/19/2023 10:30 AM CAFETERIA SUPERVISOR Infusion Department of Infusion Therapy in [address] [place] [address] Falkito Desai M.B.B.S. [address] [place] [phone] 11/20/2023 10:30 AM CAFETERIA SUPERVISOR Infusion Department of Infusion Therapy in [address] [place] [address] Flakito Desai M.B.B.S. [address] [place] [phone] 12/07/2023 9:30 AM CAFETERIA SUPERVISOR Lab Department of Infusion Therapy in [address] [place] [address] Flakito Desai M.B.B.S. [address] [place] [phone] 12/07/2023 10:40 AM CAFETERIA SUPERVISOR Office Visit Department of Oncology in [address] [place] [address] Flakito Desai M.B.B.S. [address] [place] [phone] 12/07/2023 11:00 AM CAFETERIA SUPERVISOR Infusion Department of Infusion Therapy in [address] [place] [address] Flakito Desai M.B.B.S. [address] [place] [address] 12/08/2023 10:30 AM CAFETERIA SUPERVISOR Infusion Department of Infusion Therapy in [address] [place] [address] Flakito Desai M.B.B.S. [facility] [place] [address] 12/09/2023 10:30 AM CAFETERIA SUPERVISOR Infusion Department of Infusion Therapy in [address] [place] [address] Flakito Desai M.B.B.S. [address] [place] [phone] documented as of this encounter Visit Diagnoses Not on filedocumented in this encounter Additional Health Concerns Infection Onset Date Last Indicated Resolved Time Protective Environment 09/29/2023 09/29/2023 documented as of this encounter
--- OUTSIDE RECORDS SUMMARY | 2023-11-16 16:01 | XMS_ITS | Encounter Summary ---
Author Name Unknown Organization [facility] Address [address] [place] [address] Care Team Providers Care Research Test Engine Evaluator Name Role Phone Unavailable Primary Care Provider Unavailabl e Reason for Visit * Reason Onset Date Comments COVID + 10/16/2023 Encounter Details Date Type Department Care Team (Late st Contact Info) Description 10/16/2023 Clinical Communication Department of Oncology in [place], [place] [address] [place] [phone] Flakito Desai M.B.BKeishaS. [address] [place] [phone] COVID + Social History Tobacco Use Types Packs/Day Years [...] st Contact Info) Description 11/18/2023 9:00 AM PRIVATE DUTY AIDE Lab Department of Infusion Therapy in [address] [place] [address] Flakito Desai M.B.B.S. [address] [place] [phone] 11/18/2023 10:00 AM PRIVATE DUTY AIDE Office Visit Department of Oncology in [address] [place] [address] Flakito Desai M.B.B.S. [address] [place] [phone] 11/18/2023 10:30 AM PRIVATE DUTY AIDE Infusion Department of Infusion Therapy in [address] [place] [address] Flakito Desai M.B.B.S. [address] [place] [phone] 11/19/2023 10:30 AM PRIVATE DUTY AIDE Infusion Department of Infusion Therapy in [address] [place] [address] Flakito Desai M.B.B.S. [address] [place] [phone] 11/20/2023 10:30 AM PRIVATE DUTY AIDE Infusion Department of Infusion Therapy in [address] [place] [address] Flakito Desai M.B.B.S. [address] [place] [phone] 12/07/2023 9:30 AM PRIVATE DUTY AIDE Lab Department of Infusion Therapy in [address] [place] [address] Flakito Desai M.B.B.S. [address] [place] [phone] 12/07/2023 10:40 AM PRIVATE DUTY AIDE Office Visit Department of Oncology in [address] [place] [address] Flakito Desai M.B.B.S. [address] [place] [phone] 12/07/2023 11:00 AM PRIVATE DUTY AIDE Infusion Department of Infusion Therapy in [address] [place] [address] Flakito Desai M.B.B.S. [address] [place] [phone] 12/08/2023 10:30 AM PRIVATE DUTY AIDE Infusion Department of Infusion Therapy in [address] [place] [address] Flakito Desai M.B.B.S. [address] [place] [phone] 12/09/2023 10:30 AM PRIVATE DUTY AIDE Infusion Department of Infusion Therapy in [address] [place] [address] Flakito Desai M.B.B.S. [address] [place] [phone] documented as of this encounter Procedures Procedure Name Priority Date/Time Associated Diagnosis Comments EXTM HOME SARS CORONAVIRUS-2 (COVID-19) ANTIGEN, V Routine 10/15/2023 documented in this encounter Results * (ABNORMAL) EXT Home SARS Coronavirus-2 (COVID-19) Antigen (10/15/2023) EXT Home SARS-CoV-2 Antigen Presumptive Positive(A) Presumptive Negative HOME RESULTS Swab 10/15/2023 Historical Provider LAB MICROBIOLOGY - G ENERAL ORDERABLES HOME RESULTS documented in this encounter Visit Diagnoses Not on filedocumented in this encounter Additional Health Concerns Infection Onset Date Last Indicated Resolved Time Protective Environment 09/29/2023 09/29/2023 COVID19 10/15/2023 10/15/2023 11/04/2023 6:13 AM PRIVATE DUTY AIDE documented as of this encounter
--- OUTSIDE RECORDS SUMMARY | 2023-11-16 16:01 | XMS_ITS | Encounter Summary ---
Author Name Unknown Organization [facility] Address [address] [place] [address] Care Team Providers Care Boning Room Worker Name Role Phone Unavailable Primary Care Provider Unavailabl e Reason for Visit * Reason Onset Date Comments Eliquis Questions 10/22/2023 Encounter Details Date Type Department Care Team (Latest Contact Info) Description 10/22/2023 Clinical Communication Department of Oncology in [place], [place] [address] [place] [phone] Flakito Desai M.B.BKeishaS. [address] [place] [phone] Eliquis Questions Social History Tobacco Use Types Packs/Day Years [...] (Late Contact Info) Description 11/18/2023 9:00 AM MOTEL OPERATOR Lab Department of Infusion Therapy in [address] [place] [address] Flakito Desai M.B.B.S. [address] [place] [phone] 11/18/2023 10:00 AM MOTEL OPERATOR Office Visit Department of Oncology in [address] [place] [phone] Flakito Desai M.B.B.S. [address] [place] [phone] 11/18/2023 10:30 AM MOTEL OPERATOR Infusion Department of Infusion Therapy in [address] [place] [phone] Flakito Desai M.B.B.S. [address] [place] [phone] 11/19/2023 10:30 AM MOTEL OPERATOR Infusion Department of Infusion Therapy in [address] [place] [address] Flakito Desai M.B.B.S. [address] [place] [phone] 11/20/2023 10:30 AM MOTEL OPERATOR Infusion Department of Infusion Therapy in [address] [place] [address] Flakito Desai M.B.B.S. [address] [place] [phone] 12/07/2023 9:30 AM MOTEL OPERATOR Lab Department of Infusion Therapy in [address] [place] [address] Flakito Desai M.B.B.S. [address] [place] [phone] 12/07/2023 10:40 AM MOTEL OPERATOR Office Visit Department of Oncology in [address] [place] [phone] Flakito Desai M.B.B.S. [address] [place] [phone] 12/07/2023 11:00 AM MOTEL OPERATOR Infusion Department of Infusion Therapy in [address] [place] [address] Flakito Desai M.B.B.S. [address] [place] [phone] 12/08/2023 10:30 AM MOTEL OPERATOR Infusion Department of Infusion Therapy in [address] [place] [address] Flakito Desai M.B.B.S. [address] [place] [phone] 12/09/2023 10:30 AM MOTEL OPERATOR Infusion Department of Infusion Therapy in [address] [place] [address] Flakito Desai M.B.B.S. [address] [place] [phone] documented as of this encounter Visit Diagnoses Not on filedocumented in this encounter Additional Health Concerns Infection Onset Date Last Indicated Resolved Time Protective Environment 09/29/2023 09/29/2023 COVID19 10/15/2023 10/15/2023 11/04/2023 6:13 AM MOTEL OPERATOR documented as of this encounter
--- OUTSIDE RECORDS SUMMARY | 2023-11-16 16:01 | XMS_ITS | Encounter Summary ---
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 [address] [place] [address] [facility] Region Referral ID Status Reason Start Date Expiration Date V isits Requested Visits Authorized [id number] Authorized 04/27/2023 03/31/2024 14 14 Encounter Details Date Type Department Care Team (Late st Contact Info) Description 05/27/2023 11:30 AM CDT Infusion Department of Infusion Therapy in [address] [place] [phone] Flakito Desai M.B.B.S. [address] [place] [phone] Malignant Neoplasm Of Unspecified Part Of Lung [...] st Contact Info) Description 11/18/2023 9:00 AM MULTI PURPOSE MACHINE OPERATOR Lab Department of Infusion Therapy in [address] [place] [address] Flakito Desai M.B.B.S. [address] [place] [phone] 11/18/2023 10:00 AM MULTI PURPOSE MACHINE OPERATOR Office Visit Department of Oncology in [address] [place] [phone] Flakito Desai M.B.B.S. [address] [place] [phone] 11/18/2023 10:30 AM MULTI PURPOSE MACHINE OPERATOR Infusion Department of Infusion Therapy in [address] [place] [address] Falkito Desai M.Antonietta.B.S. [address] [place] [phone] 11/19/2023 10:30 AM MULTI PURPOSE MACHINE OPERATOR Infusion Department of Infusion Therapy in [address] [place] [address] Flakito Desai M.B.B.S. [address] [place] [phone] 11/20/2023 10:30 AM MULTI PURPOSE MACHINE OPERATOR Infusion Department of Infusion Therapy in [address] [place] [address] Flakito Desai M.B.B.S. [address] [place] [phone] 12/07/2023 9:30 AM MULTI PURPOSE MACHINE OPERATOR Lab Department of Infusion Therapy in [address] [place] [address] Flakito Desai M.B.B.S. [address] [place] [phone] 12/07/2023 10:40 AM MULTI PURPOSE MACHINE OPERATOR Office Visit Department of Oncology in [address] [place] [phone] Flakito Desai M.B.B.S. [address] [place] [phone] 12/07/2023 11:00 AM MULTI PURPOSE MACHINE OPERATOR Infusion Department of Infusion Therapy in [address] [place] [address] Flakito Desai M.B.B.S. [address] [place] [phone] 12/08/2023 10:30 AM MULTI PURPOSE MACHINE OPERATOR Infusion Department of Infusion Therapy in [address] [place] [phone] Flakito Desai M.B.B.S. [address] [place] [address] 12/09/2023 10:30 AM MULTI PURPOSE MACHINE OPERATOR Infusion Department of Infusion Therapy in [address] [place], [place] [phone] Flakito Desai M.B.B.S. [address] [place] [phone] documented as of this encounter Visit Diagnoses [...] mL/hr, Administer over 30 Minutes, Once, On Thu05/27/23 at 1200, For 1 dose, If the first infusion is tolerated, all subsequent infusions may be delivered over 30 minutes. Do not administer as an intravenous push or bolus. Do not co-administer other drugs through the same intravenous line. Do NOT shake. New Bag 05/27/2023 12:33 PM CDT 1,200 mg 590 mL/hr CARBOplatin 500 mg in NaCl 0.9% 325 mL IVPB (PARAPLATIN) 500 mg (Target AUC = 5), intravenous, at 650 mL/hr, Administer over 30 Minutes, Once, On Thu05/27/23 at 1230, For 1 dose New Bag 05/27/2023 2:09 PM CDT 500 mg 650 mL/hr dexAMETHasone in NaCl 0.9% IVPB 12 mg (DECADRON) 12 mg, intravenous, at 200 mL/hr, Administer over 15 Minutes, Once, On Thu05/27/23 at 1200, For 1 dose, Refrigerate New Bag 05/27/2023 11:56 AM CDT 12 mg 200 mL/hr etoposide 120 mg in NaCl 0.9% (non-PVC) 554 mL IVPB (TOPOSAR) 120 mg (rounded from 124.8 mg = 60 mg/m2 ? 2.08 m2 Order-specific BSA), intravenous, at 554 mL/hr, Administer over 60 Minutes, Once, On Thu05/27/23 at 1300, For 1 dose, HAZARDOUS - Handle with care. Solutions should be checked carefully for precipitation before and during administration. Discard if precipitation occurs. Ensure bag is DEHP-free. Administer with non-DEHP containing tubing. New Bag 05/27/2023 1:05 PM CDT 120 mg 554 mL/hr famotidine injection 20 mg (PEPCID) 20 mg, intravenous, Once, On Thu05/27/23 at 1200, For 1 dose Given 05/27/2023 11:48 AM CDT 20 mg fosaprepitant in NaCl 0.9% IVPB 150 mg (EMEND) 150 mg, intravenous, at 500 mL/hr, Administer over 30 Minutes, Once, On Thu05/27/23 at 1200, For 1 dose, Incompatible with solutions containing divalent cations (calcium, magnesium) including lactated Ringer's solution. New Bag 05/27/2023 11:54 AM CDT 150 mg 500 mL/hr heparin flush 500 Units 500 Units, intra-catheter, As needed, line care, Starting on Thu05/27/23 at 1445, When no infusion to maintain patency: For IVAD accessed, not in use, and/or prior to hospital discharge, flush every 7 days after 0.9% preservative-free NaCL flush. For IVAD NOT accessed or used, flush every 4 weeks after 0.9% preservative-free NaCL flush. Given 05/27/2023 2:55 PM CDT 500 Units magnesium sulfate in water IVPB 2 g 2 g, intravenous, at 25 mL/hr, Administer over 120 Minutes, Once, On Thu05/27/23 at 1200, For 1 dose, If magnesium 1.4 to 1.6 administer 2 g If magnesium 1.1-1.3 administer 4g If <1.1 called provider New Bag 05/27/2023 1:05 PM CDT 2 g 25 mL/hr ondansetron in NaCl 0.9% IVPB 16 mg (ZOFRAN) 16 mg, intravenous, at 232 mL/hr, Administer over 15 Minutes, Once, On Thu05/27/23 at 1200, For 1 dose New Bag 05/27/2023 12:15 PM CDT 16 mg 232 mL/hr documented in this encounter Additional Health Concerns Infection Onset Date Last Indicated Resolved Time Protective Environment 04/15/2023 04/15/202306/30 6:36 AM CDT documented as of this encounter
--- OUTSIDE RECORDS SUMMARY | 2023-11-16 16:01 | XMS_ITS | Encounter Summary ---
Author Name Unknown Organization [facility] Address [address] [place] [address] Care Team Providers Care Pilot Safety Inspector Name Role Phone Unavailable Primary Care Provider Unavailabl e Reason for Visit * Reason Onset Date Comments COVID Treatment Review 10/17/2023 Encounter Details Date Type Department Care Team (Latest Contact Info) Description 10/17/2023 Clinical Communication Department of Family Medicine, [place] [address] [place] [address] Annmarie Jose M.SWilliams., R.N. COVID Treatment Review Social History Tobacco Use Types Packs/Day Years [...] encounter Miscellaneous Notes * Telephone Encounter - Annmarie Jose M.S.N., R.N. - 10/17/2023 10:04 AM LOGISTICS PROGRAM MANAGER Images from the original note were not included. [facility] COMMUNICATION NOTE The patient was contacted regarding a recent positive test result for COVID-19.. Treatment(s) Preliminarily Eligible for: Paxlovid, Remdesivir, Molnupiravir, and Remote Patient Monitoring Monoclonal Antibody Screening Score (MASS) Total Points Current as of 56 minutes ago 11 0 to 3 Points: Low Risk 4 to 6 Points: Medium Risk >= 7 Points: High Risk No Change Details This score is used to evaluate patient risk of complications with COVID-19 infection Points Metrics 2 Age: 77 Current as of 56 minutes ago 2 Has Chronic Respiratory Disease: Yes Current as of 56 minutes ago 0 Has Diabetes: No Current as of 56 minutes ago 4 Patient is Immune Compromised/Transplant Patient: Yes Current as of 56 minutes ago 0 BMI: 27.24 Current as of 56 minutes ago 2 Has CVD: Yes Current as of 56 minutes ago 0 Has Renal Disease (CKD 4 or 5, ESRD w/ Dialysis): No Current as of 56 minutes ago 1 Has Hypertension: Yes Current as of 56 minutes ago 0 : No Current as of 56 minutes ago Symptom Onset Date: 10/14/23 . Patient is between day 0-5 and having symptoms. Current Symptoms: cough (non-productive) and congestion If you are experiencing severe symptoms, please seek emergency medical attention. Severe symptoms may include new or increasing oxygen requirements, shortness of breath at rest, shortness of breath that limits walking short distances, chest pain (such as retrosternal or left sided chest pain, pain that radiates to the jaw or arm), and dizziness or lightheadedness that makes you unsteady or unableto stand or walk. Counseling Regarding Therapy for COVID-19 You may choose to accept or refuse any of the available treatments that we will review today. You may also stop treatment at any time. Your choice will not change your standard medical care. Regardless of your choice, you should continue to self-isolate and use infection control measures according to CDC guidelines (e.g., wear mask, isolate, social distance, avoid sharing personal items,and frequent handwashing). In addition, regardless of whether you accept any of the treatments we discuss today, if you develop worsening symptoms of COVID-19, you should reach out to your primary care provider or present to the nearest emergency department for evaluation. Treatment Discussion The patient is interested and eligible for treatment. Lab Treatment Criteria AST/ALT must be less than 10x Upper Limit Normal: Aspartate Aminotransferase (AST), P Date Value Ref Range Status 09/23/2023 22 8 - 48 U/L Final Alanine Aminotransferase (ALT), P Date Value Ref Range Status 09/23/2023 13 7 - 55 U/L Final Creatinine and an e-GFR: Creatinine Date Value Ref Range Status 09/23/2023 0.69 (L) 0.74 - 1.35 mg/dL Final No results found for: EGFRNONBLKAA No results found for: EGFRBLKAA No results found for: POCEGFRBLKAA No results found for: POCEGFRNONAA Estimated GFR (eGFR) Date Value Ref Range Status 09/23/2023 >90 >=60 mL/min/BSA Final Comment: Estimated GFR calculated using the 2020 CKD_EPI creatinine equation. Patient's Creatinine or eGFR is: >90. Medication Treatment Criteria Is the patient on any medications that need further education? Yes. You are on Apixaban medication(s) that are contraindicated and you are not eligible for Paxlovid. The patient has been on apixaban for less than 6 months. The patient is in [facility] and therefore unable to come in for Remdesivir.. Treatment Options Remdesivir Remdesivir is a FDA approved treatment for COVID-19 and has been used in hospitalized patients since the beginning of the pandemic. It is an IV medication that stops the replication of the virus thatcauses COVID-19 and has been shown to reduce the risk for hospitalization by 89%. You would receivean IV infusion once daily for 3 days in a row, and each appointment would take up to an hour. Side effects are uncommon but could include infusion reactions, such as low blood pressure, nausea,vomiting, sweating, and shivering. Increases in liver enzymes are rare and unlikely to occur at thedoses used to treat COVID-19. For any questions regarding the cost of the medication please call your insurance company. Molnupiravir Molnupiravir is an investigational medicine authorized by the FDA for Emergency Use for the treatment of COVID-19 when alternative COVID-19 treatment options approved or authorized by FDA (Paxlovid and Remdesivir) are not accessible or clinically appropriate. In recent studies molnupiravir was shown to decrease symptoms by 4-1/2 days and reduce the viral loads in the nose but does not prevent progression of disease symptoms that may require hospitalization or cause . You will take Molnupiravir twice/day for 5 days and you would need to picker and packer and start the medication within 5 days of symptom onset. It is possible not all the risks are known at this time, but side effects that have been reported include diarrhea, nausea, and dizziness. Molnupiravir is still being studied and serious and unexpected side effects may happen. The most important thing to know about Molnupiravir is that it may cause harm to an unborn baby if taken during , and we cannot prescribe Molnupiravir if . It may interact with hormonal control and the effects on sperm are unknown. You should use a reliable method of control (contraception) consistently and correctly during treatment with Molnupiravir and for women for 4 days after the last dose, and for men at least 3 months after the last dose of molnupiravir. Talk to your healthcare provider about reliable control methods. is not recommended during treatment with molnupiravir. If you are or plan to breastfeed, you would need to express and discard breast milk during treatment with molnupiravir and for 4 days after the last dose of molnupiravir. For any questions regarding the cost of the medication please call your insurance company. Treatment Decision The patient consents to Molnupiravir. The prescription(s) has been sent to the [facility] in [place] pharmacy. . Isolation: COVID-19 Isolation: Stay home from work, school, or daycare until fever free for 24 hours without the use of fever reducing medications AND it has been at least 5 days since symptom onset (10 days ifconsidered immunocompromised). Continue to wear a face mask for 5 additional days. Home Care Points for Upper Respiratory Infection: - Wash your hands often with soap and water. - For fever or discomfort, give Acetaminophen (Tylenol) or Ibuprofen (Motrin) following the dosing recommendations on the geriatric assistant's label. - For a sore throat, gargle with 8 ounces of warm salt water several times a day for throat discomfort (1/4 tsp regular salt to 8 ounces or 1 cup warm water). Do not swallow salt water. Throat lozenges will help keep the throat lubricated. Hard candy, lollipops, and throat lozenges are equally effective. - Suctioning your 's nose can make it easier for your child to breathe and eat. Using a bulb syringe or nasal aspirator with saline drops, you can safely remove mucus from your child's nose. - Suction mucus from your child's nose before you feed your child. - Notify your primary care provider of any new or worsening symptoms. When to seek emergency care: Patient is 18 years of age or older and reports the following urgent symptoms: - New shortness of breath at rest. - Pain, pressure, or tightness in chest, jaw, or arm (unrelated to coughing). - New confusion or inability to stay alert and awake. - Dizziness when sitting or standing. - Noisy, wheezy, or raspy breathing that does not clear with coughing. - Inability to swallow liquids or saliva, muffled voice, or inability to open mouth fully. - Drooling. If you have any questions regarding symptom management please follow up with your PCP. If you have any questions or concerns regarding the treatment please call us back at [phone]. Our hours are Thursday-Thursday 8:30am-4:30pm and Thursday- Thursday 8:30am-12:00pm. Plan: Treatment/Monitoring Decisions: Molnupiravir The prescription(s) has been sent to the [facility] in [place] pharmacy. . The patient is not eligible for Paxlovid. The patient has been on apixaban for less than6 months. The patient is in [facility] and therefore unable to come in for Remdesivir.. Disposition/Recommendation: protocol orders and self-care is appropriate at this time, patient encouraged to call back with questions Response to Education: patient/caller able to teach back Was the RN protocol completed? Yes The following references were used: Nursing or provider judgement, [facility] workflow(s), guidelines, and protocols, [facility] Protocols Tom Thakur., R.N. [facility] Care Team [facility] STICS PROGRAM MANAGER documented in this encounter Plan of Treatment Upcoming Encounters Date Type Department Care Team (Late st Contact Info) Description 11/18/2023 9:00 AM LOGISTICS PROGRAM MANAGER Lab Department of Infusion Therapy in [address] [place] [address] Flakito Desai M.B.B.S. [address] [place] [phone] 11/18/2023 10:00 AM LOGISTICS PROGRAM MANAGER Office Visit Department of Oncology in [address] [place] [address] Flakito Desai M.B.B.S. [address] [place] [phone] 11/18/2023 10:30 AM LOGISTICS PROGRAM MANAGER Infusion Department of Infusion Therapy in [address] [place] [address] Flakito Desai M.B.B.S. [address] [place] [phone] 11/19/2023 10:30 AM LOGISTICS PROGRAM MANAGER Infusion Department of Infusion Therapy in [address] [place] [address] Flakito Desai M.B.B.S. [address] [place] [phone] 11/20/2023 10:30 AM LOGISTICS PROGRAM MANAGER Infusion Department of Infusion Therapy in [address] [place] [address] Flakito Desai M.B.B.S. [address] [place] [phone] 12/07/2023 9:30 AM LOGISTICS PROGRAM MANAGER Lab Department of Infusion Therapy in [address] [place] [address] Flakito Desai M.B.B.S. [address] [place] [phone] 12/07/2023 10:40 AM LOGISTICS PROGRAM MANAGER Office Visit Department of Oncology in [address] [place] [address] Flakito Desai M.B.B.S. [address] [place] [phone] 12/07/2023 11:00 AM LOGISTICS PROGRAM MANAGER Infusion Department of Infusion Therapy in [address] [place] [address] Flakito Desai M.B.B.S. [address] [place] [phone] 12/08/2023 10:30 AM LOGISTICS PROGRAM MANAGER Infusion Department of Infusion Therapy in [address] [place] [address] Flakito Desai M.B.B.S. [address] [place] [phone] 12/09/2023 10:30 AM LOGISTICS PROGRAM MANAGER Infusion Department of Infusion Therapy in [address] [place] [address] Flakito Desai M.B.B.S. [address] [place] [phone] documented as of this encounter Visit Diagnoses Not on filedocumented in this encounter Additional Health Concerns Infection Onset Date Last Indicated Resolved Time Protective Environment 09/29/2023 09/29/2023 COVID19 10/15/2023 10/15/2023 11/04/2023 6:13 AM LOGISTICS PROGRAM MANAGER documented as of this encounter
--- OUTSIDE RECORDS SUMMARY | 2023-11-16 16:02 | XMS_ITS | Encounter Summary ---
Author Name Unknown Organization [facility] Address [address] [place] [address] Care Team Providers Care Compass Operator Name Role Phone Unavailable Primary Care Provider Unavailabl e Reason for Visit * Reason Comments Follow-up Small cell * Episode Based Medications (Routine) - Authorized Specialty Diagnoses / Procedures Referred By Molina valdes Referred To Contact Diagnoses 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) Other [facility] Current Drug Therapy Procedures CT INJECTION, PEGFILGRASTIM, EXCLUDES BIOSIMILAR, 0.[address] ONDANSETRON HCL INJECTION CT ATEZOLIZUMAB [address] ETOPOSIDE 10 MG INJ Flakito Desai M.B.B.S. [address] [place] [address] [facility] Region Referral ID Status Reason Start Date Expiration Date V isits Requested Visits Authorized [id number] Authorized 04/27/2023 03/31/2024 14 14 Encounter Details Date Type Department Care Team (Late st Contact Info) Description 05/27/2023 11:00 AM CDT Office Visit Department of Oncology in [address] [place] [phone] Flakito Desai M.B.B.S. [address] [place] [address] [phone] Malignant Neoplasm Of Unspecified Part Of Lung [...] Sign Reading Time Taken Comments Blood Pressure 123/76 05/27/2023 10:36 AM CDT Pulse 93 05/27/2023 10:36 AM CDT Temperature 36.2 ??C (97.2 ??F) 05/27/2023 1 0:36 AM CDT Respiratory Rate - - Oxygen Saturation 99% 05/27/2023 10: 36 AM CDT room air Inhaled Oxygen Concentration - - Weight 90.6 kg (199 lb 11.8 oz) 023 10:36 AM CDT Height - - Body Mass Index 27.86 05/06/2023 8:38 AM CDT documented in this encounter Patient Instructions * Patient Instructions* Laisha Mandujano R.N., O.C.N. - 05/27/2023 11:00 AM CDT We will fax our last note to [place]. We enjoyed taking care of you! Let us know if you need anything in the future! Please call with any changes, concerns, or questions. [facility] #[phone] (Thursday-Thursday, 7:30 am- 4:30 pm) After hours/ week-ends/ Holidays please call On-call Thanks for letting me care for you today! documented in this encounter Progress Notes * Flakito Desai M.B.B.S. - 05/27/2023 11:00 AM CDT Images from the original note were not included. [facility]ATOLOG[facility]/ONCOLOGY VISIT [facility] Provider Flakito Desai Reason for visit: Metastatic small-cell carcinoma Oncology History Overview Note 02/26/23 [place]: admitted to hospital for weakness, fatigue [...] Critical Imaging ED workup for Confusion at [place] 03/23/23 Xray Chest: The pericardial and [...] No additional findings to suggest acute cholecystitis. 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) 04/01/2023 - Chemotherapy Atezolizumab / CARBOplatin / Etoposide Start Date: 04/01/2023 Interim history Presents today for follow-up and continuation of treatment. He is here with his supportive Bunny. He tolerated his last treatment well without any significant side effects except for nail changes. Tolerating Eliquis well without any significant side effects. No bleeding diastasis except for mild bruising of the skin on the forearm. He is not taking aspirin. He does not have any stents. He waspreviously on aspirin in the past for a stroke. He is here to continue on with treatment. He does not have any history of autoimmune conditions or transplant. Prior to the onset of his illness he was well. Able to drive, and do gardening. Previously did not need assist device for ambulation. REVIEW OF SYSTEMS All other systems reviewed and are negative. MEDICATIONS: Current Outpatient Medications Medication Sig allopurinoL (ZYLOPRIM) 100 mg tablet Take 1 tablet by mouth daily. amLODIPine (NORVASC) 5 mg tablet Take 1 tablet by mouth daily. apixaban (ELIQUIS) 5 mg tablet Take 2 tablets (10 mg total) by mouth 2 (two) times a day for 7 days, THEN 1 tablet (5 mg total) 2 (two) times a day. atorvastatin (LIPITOR) 10 mg tablet Take 10 mg by mouth daily. cholecalciferol, vitD3,/vit K2 (vitamin D3-vitamin K2) 125-90 mcg capsule Take 1 capsule by mouth daily. dilTIAZem (TIAZAC/TAZTIA XT) 240 mg ER capsule Take 240 mg by mouth daily. famotidine (PEPCID) 20 mg tablet Take 20 mg by mouth 2 (two) times a day. fluticasone propionate (FLONASE) 50 mcg/actuation nasal spray Administer 2 sprays into nostril(s) daily. LORazepam (ATIVAN) 0.5 mg tablet TAKE 1 TABLET BY MOUTH EVERY 8 HOURS NEEDED FOR NAUSEA/VOMITING/ANXIETY. IF INEFFECTIVE MAY REPEAT ONCE AFTER 30MINS. polyethylene glycol (MIRALAX) 17 gram powder packet Take 17 g by mouth daily as needed for constipation. Dissolve each 17 g dose in 240 mLs (8 ounces) of beverage. potassium chloride (KLORCON/K-TAB) 10 mEq ER tablet Take 10 mEq by mouth 2 (two) times a day. sodium chloride 1 gram tablet Take 1 tablet (1 g total) by mouth 3 (three) times a day with meals. 2 with breakfast, 1 with lunch and 2 with supper tiotropium (Spiriva Respimat) 2.5 mcg/actuation inhaler Inhale 2 puffs daily. magnesium oxide (MAG-OX) 400 mg (241.3 mg magnesium) tablet Take 1 tablet (400 mg total) by mouth every morning before breakfast. mupirocin (BACTROBAN) 2 % ointment Apply 1 [...] Types: Cigarettes Quit date: 1978 Years since quittin.6 Passive exposure: Never Smokeless tobacco: Never Tobacco comments: Quit 46 years ago. Vaping Use Vaping Use: never used Substance Use Topics Alcohol use: Not Currently Drug use: Never OBJECTIVE ECOG Score: 1-2 Vitals: 05/27/23 1036 BP: 123/76 Pulse: 93 Temp: 36.2 ??C SpO2: 99% Wt Readings from Last 3 Encounters: 05/27/23 90.6 kg 05/06/23 89.8 kg 04/08/23 86.1 kg Vitals and nursing note reviewed. Constitutional General: he is not in acute distress. Appearance: he is not ill-appearing, toxic-appearing or diaphoretic. Cardiovascular Rate and Rhythm: Normal rate. Pulmonary Effort: Pulmonary effort is normal. Neurological Mental Status: he is alert and oriented to person, place, and time. Psychiatric Mood and Affect: Mood normal. Behavior: Behavior normal. Thought Content: Thought content normal. Judgment: Judgment normal. LABORATORY DATA Recent Results (from the past 24 hour(s)) CBC with Differential, Blood Collection Time: 05/27/23 10:08 AM Result Value Hemoglobin 10.9 (L) Hematocrit 32.0 (L) Erythrocytes 3.15 (L) MCV 101.6 (H) RBC Distrib Width 15.7 (H) Platelet Count 240 Leukocytes 7.6 Neutrophils 5.62 Lymphocytes 1.00 Monocytes 0.86 (H) Eosinophils 0.03 Basophils 0.04 Comprehensive Metabolic Panel Collection Time: 05/27/23 10:08 AM Result Value Potassium, P 4.4 Sodium, P 131 (L) Chloride, P 97 (L) Bicarbonate, P 25 Anion Gap, P 9 BUN (Blood Urea Nitrogen), P 11 Creatinine 0.78 Estimated GFR (eGFR) >90 Calcium, Total, P 9.1 Glucose, P 154 (H) Protein, Total, P 6.0 (L) Albumin, P 3.7 Aspartate Aminotransferase (AST), P 20 Alkaline Phosphatase, P 168 (H) Alanine Aminotransferase (ALT), P 16 Bilirubin, Total, P 0.5 Magnesium Collection Time: 05/27/23 10:08 AM Result Value Magnesium, P 1.5 (L) Phosphorus Inorganic Collection Time: 05/27/23 10:08 AM Result Value Phosphorus (Inorganic), P 3.6 Thyroid Function Mathews Collection Time: 05/27/23 10:08 AM Result Value TSH, Sensitive 1.0 RADIOLOGICAL DATA [...] Carboplatin etoposide 03/18/2023-04/08/2023, 1C Carboplatin etoposide atezolizumab 04/08/2023- He has stage IV small-cell cancer. MRI brain 03/13/2023 did not show metastatic disease. It was uncertain the origin of his small-cell cancer, approach at [place] was for extrapulmonary small-cell with carboplatin etoposide. [...] liver function and tolerability, he received 480 mgof carboplatin cycle 1. Increase etoposide to 60% original dose cycle 2. Cycle 2 he received 500 mgcarboplatin. As he received significant dose reductions with cycle 1, will favor up to 6 cycles chemo immunotherapy followed by maintenance atezolizumab, 05/04/2023 PET scan: Response to treatment. Considering that he responded well, and is tolerating treatment well, I would favor keeping the current dose, and aim to complete 6 cycles followed by maintenance immunotherapy. I did consider increasing the dose however in the interest of avoiding toxicities, would keep the current regimen dose. Clinical examination stable. Labs stable. No bleeding diastasis. Anemia could be related to chemotherapy. Will give magnesium replacement today. Will also prescribe magnesium 1 tablet daily. Advised if any diarrhea with magnesium can use the magnesium 1 tablet every other day. As his liver enzymes continue to remain stable, and he is doing well, will plan to do 2 more cycles then repeat PET scan.He is planning to go to [place] soon, and will continue his treatment there. We will send our note to the local oncologist. He plans to have knee surgery for osteoarthritis. In light of his blood clot, will recommend waiting at least 6 months before knee surgery. When he does proceed with knee surgery, will recommend bridging with Lovenox to reduce the time that he is off anticoagulation. As he is on Eliquis now, we again discussed the holding off aspirin to reduce his bleeding risk. -plan to complete 2 more cycles then repeat PET scan -continue carboplatin etoposide per protocol -plan for 6 cycles chemo immunotherapy followed by maintenance atezolizumab Regimen Carboplatin AUC 5 (using 500 mg), Etoposide 60 mg per m2 D1, D2, D3 (60% original dose), Atezolizumab 1200 mg D1 every 21 days, followed by atezolizumab 1680 mg every 28 days Neulasta Onpro D3 //Unprovoked Right lower extremity DVT Dx 05/06/2023 in the setting of malignancy -Continue Eliquis 5 mg twice daily as long as bleeding does not become an issue. -bleeding precautions advised. //Mucositis-resolved -continue topical triamcinolone 0.1% 3 times daily as needed -continue topical mupirocin to the outer lip 3 times daily as needed //Other problems Cirrhosis SIADH Aneurysm of ascending aorta History of CVA 2012 without residual deficits Hypertension Gout -follow up with PCP for the above comorbidities Follow up: Continue treatment per protocol, follow-up per protocol, Patient was encouraged to keep us informed [...] concerns prior to next appointment. Bernadette Blackburn. 11:18 AM CDT 05/27/23 I personally spent 20 minutes in care of the patient today. This time includes both face to face and non-face to face time. CONTACT INFORMATION To contact your medical team, please utilize your [facility] Patient Portal or call our care team: #1 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) - Oncology office visit (clinic) General; Lung; Future; Expected date: 06/17/2023 - Infusion Appointment Request; Future; Expected date: 06/17/2023 - CBC with Differential, Blood; Future; Expected date: 06/17/2023 - Comprehensive Metabolic Panel; Future; Expected date: 06/17/2023 - Magnesium; Future; Expected date: 06/17/2023 - Phosphorus Inorganic; Future; Expected date: 06/17/2023 - Thyroid Function Mathews; Future; Expected date: 06/17/2023 - Infusion Appointment Request; Future; Expected date: 06/18/2023 - Infusion Appointment Request; Future; Expected date: 06/19/2023 - Oncology office visit (clinic) General; Lung Other orders - CARBOplatin 500 mg in NaCl 0.9% 300 mL IVPB (PARAPLATIN); 500 mg (Target AUC = 5), intravenous, at 600 mL/hr, Administer over 30 Minutes, Once, For 1 dose - etoposide 120 mg in NaCl 0.9% (non-PVC) 506 mL IVPB (TOPOSAR); 120 mg (rounded from 124.8 mg = 60mg/m2 ?? 2.08 m2 Order-specific BSA), intravenous, at 506 mL/hr, Administer over 60 Minutes, Once, For 1 doseHAZARDOUS - Handle with care. Solutions should be checked carefully for precipitation before and during administration. Discard if precipitation occurs. Ensure bag is DEHP-free. Administer with non-DEHP containing tubing. - etoposide 120 mg in NaCl 0.9% (non-PVC) 506 mL IVPB (TOPOSAR); 120 mg (rounded from 124.8 mg = 60mg/m2 ?? 2.08 m2 Order-specific BSA), intravenous, at 506 mL/hr, Administer over 60 Minutes, Once, For 1 doseHAZARDOUS - Handle with care. Solutions should be checked carefully for precipitation before and during administration. Discard if precipitation occurs. Ensure bag is DEHP-free. Administer with non-DEHP containing tubing. - etoposide 120 mg in NaCl 0.9% (non-PVC) 506 mL IVPB (TOPOSAR); 120 mg (rounded from 124.8 mg = 60mg/m2 ?? 2.08 m2 Order-specific BSA), intravenous, at 506 mL/hr, Administer over 60 Minutes, Once, For 1 doseHAZARDOUS - Handle with care. Solutions should be checked carefully for precipitation before and during administration. Discard if precipitation occurs. Ensure bag is DEHP-free. Administer with non-DEHP containing tubing. - NaCl 0.9% infusion; 20 mL/hr, intravenous, Continuous Infusion: Per Instructions PRN, IV wood heel back liner, Starting on Thu06/17/23, For 1 day - famotidine injection 20 mg (PEPCID); 20 mg, intravenous, Once, For 1 dose - dexAMETHasone in NaCl 0.9% IVPB 12 mg (DECADRON); 12 mg, intravenous, at 200 mL/hr, Administer over 15 Minutes, Once, For 1 doseRefrigerate - ondansetron in NaCl 0.9% IVPB 16 mg (ZOFRAN); 16 mg, intravenous, at 232 mL/hr, Administer over 15 Minutes, Once, For 1 dose - fosaprepitant in NaCl 0.9% IVPB 150 mg (EMEND); 150 mg, intravenous, at 500 mL/hr, Administer over 30 Minutes, Once, For 1 doseIncompatible with solutions containing divalent cations (calcium, magnesium) including lactated Ringer's solution. - atezolizumab 1,200 mg in NaCl 0.9% 270 mL IVPB (TECENTRIQ); 1,200 mg, intravenous, at 540 mL/hr, Administer over 30 Minutes, Once, For 1 doseIf the first infusion is tolerated, all subsequent infusions may be delivered over 30 minutes. Do not administer as an intravenous push or bolus. Do not co-administer other drugs through the same intravenous line. Do NOT shake. - CARBOplatin 500 mg in NaCl 0.9% 300 mL IVPB (PARAPLATIN); 500 mg (Target AUC = 5), intravenous, at 600 mL/hr, Administer over 30 Minutes, Once, For 1 dose - etoposide 120 mg in NaCl 0.9% (non-PVC) 506 mL IVPB (TOPOSAR); 120 mg (rounded from 124.8 mg = 60mg/m2 ?? 2.08 m2 Order-specific BSA), intravenous, at 506 mL/hr, Administer over 60 Minutes, Once, For 1 doseHAZARDOUS - Handle with care. Solutions should be checked carefully for precipitation before and during administration. Discard if precipitation occurs. Ensure bag is DEHP-free. Administer with non-DEHP containing tubing. - acetaminophen tablet 650 mg (TYLENOL); 650 mg, oral, Every 4 hours PRN, infusion related reactions or temperature greater than 38 degrees Celsius, Starting on Thu06/17/23, For 4 doses - diphenhydrAMINE injection 25 mg (BENADRYL); 25 mg, intravenous, Every 4 hours PRN, infusion related reactions. May repeat once if symptoms not relieved within 15 minutes of initial dose., Starting on Thu06/17/23 - meperidine (PF) injection 25 mg (DEMEROL); 25 mg, intravenous, Every 15 min PRN, Rigors. May repeat once (maximum total dose 50 mg)., Starting on Thu06/17/23, For 2 dosesRestriction Criteria (Pharmacy will review and approve if criteria met): Prevention or treatment of drug-induced or [id number] rigors - prochlorperazine injection 10 mg (COMPAZINE); 10 mg, intravenous, Every 6 hours PRN, nausea, vomiting, Starting on Thu06/17/23Prochlorperazine should be used first for break-through nausea/vomiting. - ondansetron (PF) injection 8 mg (ZOFRAN); 8 mg, intravenous, Every 8 hours PRN, nausea, vomiting,Starting on Thu06/17/23If nausea/vomiting is unrelieved by prochlorperazine, give ondansetron. - LORazepam injection 0.5 mg (ATIVAN); 0.5 mg, intravenous, Every 8 hours PRN, nausea, vomiting, Starting on Thu06/17/23, For 24 hoursIf nausea/vomiting is unrelieved by prochlorperazine or ondansetron or if the patient is having anxiety symptoms, give lorazepam. If ineffective, may repeat once after 30 minutes. Shortage on injection, use oral when possible For intravenous use, dilute with equal volume of 0.9% NS - NaCl 0.9% infusion; 20 mL/hr, intravenous, Continuous Infusion: Per Instructions PRN, IV wood heel back liner, Starting on Thu06/18/23, For 1 day - ondansetron (PF) injection 8 mg (ZOFRAN); 8 mg, intravenous, Once, For 1 dose - etoposide 120 mg in NaCl 0.9% (non-PVC) 506 mL IVPB (TOPOSAR); 120 mg (rounded from 124.8 mg = 60mg/m2 ?? 2.08 m2 Order-specific BSA), intravenous, at 506 mL/hr, Administer over 60 Minutes, Once, For 1 doseHAZARDOUS - Handle with care. Solutions should be checked carefully for precipitation before and during administration. Discard if precipitation occurs. Ensure bag is DEHP-free. Administer with non-DEHP containing tubing. - prochlorperazine injection 10 mg (COMPAZINE); 10 mg, intravenous, Every 6 hours PRN, nausea, vomiting, Starting on Thu06/18/23Prochlorperazine should be used first for break-through nausea/vomiting. - ondansetron (PF) injection 8 mg (ZOFRAN); 8 mg, intravenous, Every 8 hours PRN, nausea, vomiting,Starting on Thu06/18/23If nausea/vomiting is unrelieved by prochlorperazine, give ondansetron. - NaCl 0.9% infusion; 20 mL/hr, intravenous, Continuous Infusion: Per Instructions PRN, IV wood heel back liner, Starting on Thu06/19/23, For 1 day - ondansetron (PF) injection 8 mg (ZOFRAN); 8 mg, intravenous, Once, For 1 dose - pegfilgrastim on-body injector 6 mg (NEULASTA ONPRO); 6 mg, subcutaneous, Once, For 1 doseI discussed options with patient: Did not discuss with patient - etoposide 120 mg in NaCl 0.9% (non-PVC) 506 mL IVPB (TOPOSAR); 120 mg (rounded from 124.8 mg = 60mg/m2 ?? 2.08 m2 Order-specific BSA), intravenous, at 506 mL/hr, Administer over 60 Minutes, Once, For 1 doseHAZARDOUS - Handle with care. Solutions should be checked carefully for precipitation before and during administration. Discard if precipitation occurs. Ensure bag is DEHP-free. Administer with non-DEHP containing tubing. - prochlorperazine injection 10 mg (COMPAZINE); 10 mg, intravenous, Every 6 hours PRN, nausea, vomiting, Starting on Thu06/19/23Prochlorperazine should be used first for break-through nausea/vomiting. - ondansetron (PF) injection 8 mg (ZOFRAN); 8 mg, intravenous, Every 8 hours PRN, nausea, vomiting,Starting on Thu06/19/23If nausea/vomiting is unrelieved by prochlorperazine, give ondansetron. - magnesium oxide (MAG-OX) 400 mg (241.3 mg magnesium) tablet; Take 1 tablet (400 mg total) by mouth every morning before breakfast., Starting Thu05/27/2023, Until Thu06/26/2023, Normal - sodium chloride 1 gram tablet; Take 1 tablet (1 g total) by mouth 3 (three) times a day with meals. 2 with breakfast, 1 with lunch and 2 with supper, Starting Thu05/27/2023, Until Thu08/25/2023, Normal documented in this encounter Miscellaneous Notes * Addendum Note - Laisha Mandujano R.N., O.C.N. 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 [address] [place] [phone] 11/18/2023 10:00 AM SCRUBBING MACHINE OPERATOR Office Visit Department of Oncology in [address] [place] [phone] Flakito Desai M.B.B.S. [address] [place] [phone] 11/18/2023 10:30 AM SCRUBBING MACHINE OPERATOR Infusion Department of Infusion Therapy in [address] [place] [address] Flakito Desai M.B.B.S. [address] [place] [phone] 11/19/2023 10:30 AM SCRUBBING MACHINE OPERATOR Infusion Department of Infusion Therapy in [address] [place] [address] Flakito Desai M.B.B.S. [address] [place] [phone] 11/20/2023 10:30 AM SCRUBBING MACHINE OPERATOR Infusion Department of Infusion Therapy in [address] [place] [address] Flakito Desai M.B.B.S. [address] [place] [phone] 12/07/2023 9:30 AM SCRUBBING MACHINE OPERATOR Lab Department of Infusion Therapy in [address] [place] [address] Flakito Desai M.B.B.S. [address] [place] [phone] 12/07/2023 10:40 AM SCRUBBING MACHINE OPERATOR Office Visit Department of Oncology in [address] [place] [phone] Flakito Desai M.B.B.S. [address] [place] [phone] 12/07/2023 11:00 AM SCRUBBING MACHINE OPERATOR Infusion Department of Infusion Therapy in [address] [place] [address] Flakito Desai M.B.B.S. [address] [place] [phone] 12/08/2023 10:30 AM SCRUBBING MACHINE OPERATOR Infusion Department of Infusion Therapy in [address] [place] [address] Flakito Desai M.B.B.S. [address] [place] [phone] 12/09/2023 10:30 AM SCRUBBING MACHINE OPERATOR Infusion Department of Infusion Therapy in [address] [place] [phone] Flakito Desai M.B.B.S. [address] [place] [phone] documented as of this encounter Visit Diagnoses Diagnosis 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)- Primary documented in this encounter Additional Health Concerns Infection Onset Date Last Indicated Resolved Time Protective Environment 04/15/2023 04/15/202306/30 6:36 AM CDT documented as of this encounter
--- OUTSIDE RECORDS SUMMARY | 2023-11-16 16:02 | XMS_ITS | Encounter Summary ---
Author Name Unknown Organization [facility] Address [address] [place] [address] Care Team Providers Care Zipper Setter Name Role Phone Unavailable Primary Care Provider Unavailabl e Reason for Referral * Outpatient (Routine) - Closed Specialty Diagnoses / Procedures Referred By Molina t Referred To Contact Diagnoses Swelling Leg Right Procedures US Lower Extremity Veins Right Ac Desai M.B.B.S. [address] [place] [phone] [facility] Region Referral ID Status Reason Start Date Expiration Date Visits Re quested Visits Authorized [id number] Closed 05/06/2023 05/05/2024 1 1 Reason for Visit * Reason Comments Treatment 3 week F/U. Metatast ic Small Cell Lung. Had lab draw * Episode Based Medications (Routine) - Authorized Specialty Diagnoses / Procedures Referred By Molina t Referred To Contact Diagnoses 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) Other Tight Barrel Inspector Current Drug Therapy Procedures AR INJECTION, PEGFILGRASTIM, EXCLUDES BIOSIMILAR, 0.5 MG AR ONDANSETRON HCL INJECTION AR ATEZOLIZUMAB 10 MG INJ AR CARBOPLATIN INJECTION AR ETOPOSIDE 10 MG INJ Ac Desai M.B.B.S. [address] [place] [phone] [facility] Region Referral ID Status Reason Start Date Expiration Date V isits Requested Visits Authorized [id number] Authorized 04/27/2023 03/31/2024 14 14 Encounter Details Date Type Department Care Team (Late st Contact Info) Description 05/06/2023 9:00 AM CDT Office Visit Department of Oncology in [address] [place] [phone] Ac Desai M.B.B.S. [facility] [place] [address] Swelling Leg Right (Primary Dx); Malignant Neoplasm Of Unspecified Part [...] Sign Reading Time Taken Comments Blood Pressure 120/75 05/06/2023 8:38 AM CDT Pulse 80 05/06/2023 8:38 AM CDT Temperature 36.6 ??C (97.8 ??F) 05/06/2023 8:38 AM CD T Respiratory Rate 16 05/06/2023 8:38 AM CDT Oxygen Saturation 100% 05/06/2023 8:38 AM CDT Inhaled Oxygen Concentration - - Weight 89.8 kg (197 lb 15.6 oz) 05/06/2023 8:38 AM CDT Height 180.3 cm (5' 11) 05/06/2023 8:38 AM CDT Body Mass Index 27.61 05/06/2023 8:38 AM CDT documented in this encounter Progress Notes * Ac Desai M.B.B.S. - 05/06/2023 9:00 AM CDT Images from the original note were not included. [facility] HEMATOLOGY/ONCOLOGY VISIT [facility] Provider Ac Desai Reason for visit: Metastatic small-cell carcinoma Oncology History Overview Note 02/26/23 [place], [place]: admitted to hospital for weakness, fatigue [...] Critical Imaging ED workup for Confusion at [place] 03/23/23 Xray Chest: The pericardial and [...] today for follow-up and continuation of treatment. with his supportive Bunny and supportive daughter Paula. Doing well today. No significant side effects from last treatment except for fatigue. He feels much better. His mucositis on his lips is significantly improved. No significant gastrointestinal side effects. He is here to continue on with treatment. At previous visits we discussed he has had recurrent UTIs in the past and thought unrelated to chemotherapy. He does not have any history of autoimmune conditions or transplant. Prior to the onset of his illness he was well. Able to driving, gardening. Previously did not need assist device for ambulation. No other symptoms or concerns today. REVIEW OF SYSTEMS All other systems reviewed [...] spray Administer 2 sprays into nostril(s) daily. polyethylene glycol (MIRALAX) 17 gram powder [...] 2.5 mcg/actuation inhaler Inhale 2 puffs daily. aspirin 81 mg chewable tablet Chew 81 mg daily. mupirocin (BACTROBAN) 2 % ointment Apply 1 [...] Types: Cigarettes Quit date: 1979 Years since quittin.5 Passive exposure: Never Smokeless tobacco: Never Tobacco comments: Quit 46 years ago. Vaping Use Vaping Use: never used Substance Use Topics Alcohol use: Not Currently Drug use: Never OBJECTIVE ECOG Score: 1-2 Vitals: 05/06/23 0838 BP: 120/75 Pulse: 80 Resp: 16 Temp: 36.6 ??C SpO2: 100% Wt Readings from Last 3 Encounters: 05/06/23 89.8 kg 04/08/23 86.1 kg Vitals and nursing note reviewed. Constitutional General: he is not in acute distress. Appearance: he is not ill-appearing, toxic-appearing or diaphoretic. Cardiovascular Rate and Rhythm: Normal rate. Heart sounds normal, breath sounds normal, bilateral lower extremity swelling, right more than left Pulmonary Effort: Pulmonary effort is normal. Neurological Mental Status: he is alert and oriented to person, place, and time. Psychiatric Mood and Affect: Mood normal. Behavior: Behavior normal. Thought Content: Thought content normal. Judgment: Judgment normal. Port clean dry and intact Grade 0 mucositis of outer lip. LABORATORY DATA Recent Results (from the past 24 hour(s)) CBC with Differential, Blood Collection Time: 05/06/23 8:22 AM Result Value Hemoglobin 11.1 (L) Hematocrit 32.5 (L) Erythrocytes 3.26 (L) MCV 99.7 (H) RBC Distrib Width 16.0 (H) Platelet Count 291 Leukocytes 8.6 Neutrophils 5.69 Lymphocytes 1.53 Monocytes 1.29 (H) Eosinophils <0.03 Basophils 0.07 Comprehensive Metabolic Panel Collection Time: 05/06/23 8:22 AM Result Value Potassium, P 4.3 Sodium, P 131 (L) Chloride, P 98 Bicarbonate, P 25 Anion Gap, P 8 BUN (Blood Urea Nitrogen), P 8 Creatinine 0.72 (L) Estimated GFR (eGFR) >90 Calcium, Total, P 8.6 (L) Glucose, P 90 Protein, Total, P 5.9 (L) Albumin, P 3.4 (L) Aspartate Aminotransferase (AST), P 24 Alkaline Phosphatase, P 176 (H) Alanine Aminotransferase (ALT), P 16 Bilirubin, Total, P 0.7 Magnesium Collection Time: 05/06/23 8:22 AM Result Value Magnesium, P 1.7 Phosphorus Inorganic Collection Time: 05/06/23 8:22 AM Result Value Phosphorus (Inorganic), P 3.4 RADIOLOGICAL DATA Radiology data reviewed. 03/05/2023 liver [...] origin of his small-cell cancer, approach at [place] was for extrapulmonary small-cell with carboplatin etoposide. There was not sufficient tissue sample for B Miguel testing. With the presence of hypermetabolic activity in the hilar and mediastinal region, raises the possibility of lung origin. As we suspect likely lung origin. We added atezolizumab. No history of autoimmune conditions ororgan transplant. Cycle 1 Dose of etoposide reduced by 50% due to liver function and tolerability, he received 480 mgof carboplatin cycle 1. Increase etoposide to 60% original dose cycle 2. Cycle 2 he received 500 mgcarboplatin. As he received significant dose reductions with cycle 1, will favor up to 6 cycles chemo immunotherapy followed by maintenance atezolizumab, Presents today for follow-up and review of restaging scans that shows a response to treatment. Other incidental findings we will monitor.. Recall this is a scan after 2 cycle, essentially a new baseline scan to compare subsequent imaging with. Also recall he received significant dose reductions forcycle 1 without immunotherapy. Clinical examination stable. Labs stable. Considering that he responded well, and is tolerating treatment well, I would favor keeping the current dose, and aim to complete 6 cycles followed by maintenance immunotherapy. I did consider increasing the dose however in the interest of avoiding toxicities, would keep the current regimen dose. He does have some bilateral lower extremity swelling, the right leg is more swollen than the left, he mentions the swelling resolves overnight, and worsens during the day. In the morning, The left leg is normal, however the right leg is still slightly swollen. Likely dependent edema, however will do ultrasound to rule out DVT in the right lower extremity. -continue carboplatin etoposide per protocol -plan for 6 cycles chemo immunotherapy followed by maintenance atezolizumab -weekly hydration -weekly CMP, magnesium -PET scan after 2 more cycles -Doppler ultrasound to rule out DVT in right lower extremity Regimen Carboplatin AUC 5 (using 500 mg), Etoposide 60 mg per m2 D1, D2, D3 (60% original dose), Atezolizumab 1200 mg D1 every 21 days, followed by atezolizumab 1680 mg every 28 days Neulasta Onpro D3 05/06/2023 addendum Notified that ultrasound showed DVT. Prescribed Eliquis 10 mg twice daily for 7 days followed by 5 mg twice daily. Reviewed indications, benefits, side effects of Eliquis with patient's . They are agreeable for Eliquis. Bleeding precautions advised. Continue anticoagulation indefinitely as longas bleeding does not become an issue. //Mucositis-resolved -continue topical triamcinolone 0.1% 3 times daily as needed -continue topical mupirocin to the outer lip 3 times daily as needed -continue topical moisturizers as needed //Other problems Cirrhosis SIADH Aneurysm of ascending aorta History of CVA 2012 without residual deficits Hypertension Gout -follow up with PCP for the above comorbidities Follow up: As above Patient was encouraged to keep us informed [...] questions or concerns prior to next appointment. Audrey Blackburn.S. 9:14 AM CDT 05/06/23 I personally spent 20 minutes in care of the patient today. This time includes both face to face and non-face to face time. CONTACT INFORMATION To contact your medical team, please utilize your [facility] Patient Portal or call our care team: #1 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) - Comprehensive Metabolic Panel; Standing - Magnesium; Standing - Oncology office visit (clinic) General; Lung - PET CT Skull to Thigh FDG; Future; Expected date: 06/17/2023 #2 Swelling Leg Right - US Lower Extremity Veins Right; Future; Expected date: 05/06/2023 Other orders - acetaminophen tablet 650 mg (TYLENOL); 650 mg, oral, Every 4 hours PRN, infusion related reactions or temperature greater than 38 degrees Celsius, Starting on Thu05/06/23, For 4 doses - diphenhydrAMINE injection 25 mg (BENADRYL); 25 mg, intravenous, Every 4 hours PRN, infusion related reactions. May repeat once if symptoms not relieved within 15 minutes of initial dose., Starting on Thu05/06/23 - meperidine (PF) injection 25 mg (DEMEROL); 25 mg, intravenous, Every 15 min PRN, Rigors. May repeat once (maximum total dose 50 mg)., Starting on Thu05/06/23, For 2 dosesRestriction Criteria (Pharmacy will review and approve if criteria met): Prevention or treatment of drug-induced or qqnka-beabaxc-eomdabo rigors - prochlorperazine injection 10 mg (COMPAZINE); 10 mg, intravenous, Every 6 hours PRN, nausea, vomiting, Starting on Thu05/06/23Prochlorperazine should be used first for break-through nausea/vomiting. - ondansetron (PF) injection 8 mg (ZOFRAN); 8 mg, intravenous, Every 8 hours PRN, nausea, vomiting,Starting on Thu05/06/23If nausea/vomiting is unrelieved by prochlorperazine, give ondansetron. - LORazepam injection 0.5 mg (ATIVAN); 0.5 mg, intravenous, Every 8 hours PRN, nausea, vomiting, Starting on Thu05/06/23, For 24 hoursIf nausea/vomiting is unrelieved by prochlorperazine or ondansetron or if the patient is having anxiety symptoms, give lorazepam. If ineffective, may repeat once after 30 minutes. Shortage on injection, use oral when possible For intravenous use, dilute with equal volume of 0.9% NS - NaCl 0.9% infusion; 20 mL/hr, intravenous, Continuous Infusion: Per Instructions PRN, IV station engineer main line, Starting on Thu05/07/23, For 1 day - ondansetron (PF) injection 8 mg (ZOFRAN); 8 mg, intravenous, Once, For 1 dose - prochlorperazine injection 10 mg (COMPAZINE); 10 mg, intravenous, Every 6 hours PRN, nausea, vomiting, Starting on Thu05/07/23Prochlorperazine should be used first for break-through nausea/vomiting. - ondansetron (PF) injection 8 mg (ZOFRAN); 8 mg, intravenous, Every 8 hours PRN, nausea, vomiting,Starting on Thu05/07/23If nausea/vomiting is unrelieved by prochlorperazine, give ondansetron. - NaCl 0.9% infusion; 20 mL/hr, intravenous, Continuous Infusion: Per Instructions PRN, IV station engineer main line, Starting on Thu05/08/23, For 1 day - ondansetron (PF) injection 8 mg (ZOFRAN); 8 mg, intravenous, Once, For 1 dose - pegfilgrastim on-body injector 6 mg (NEULASTA ONPRO); 6 mg, subcutaneous, Once, On Thu05/08/23 [id number], For 1 doseI discussed options with patient: Did not discuss with patient - prochlorperazine injection 10 mg (COMPAZINE); 10 mg, intravenous, Every 6 hours PRN, nausea, vomiting, Starting on Thu05/08/23Prochlorperazine should be used first for break-through nausea/vomiting. - ondansetron (PF) injection 8 mg (ZOFRAN); 8 mg, intravenous, Every 8 hours PRN, nausea, vomiting,Starting on Thu05/08/23If nausea/vomiting is unrelieved by prochlorperazine, give ondansetron. - NaCl 0.9% infusion; 20 mL/hr, intravenous, Continuous Infusion: Per Instructions PRN, IV station engineer main line, Starting on Thu05/27/23, For 1 day - famotidine injection 20 [...] greater than 38 degrees Celsius, Starting on Thu05/27/23, For 4 doses - diphenhydrAMINE injection 25 mg (BENADRYL); 25 mg, intravenous, Every 4 hours PRN, infusion related reactions. May repeat once if symptoms not relieved within 15 minutes of initial dose., Starting on Thu05/27/23 - meperidine (PF) injection 25 mg (DEMEROL); 25 mg, intravenous, Every 15 min PRN, Rigors. May repeat once (maximum total dose 50 mg)., Starting on Thu05/27/23, For 2 dosesRestriction Criteria (Pharmacy will review and approve if criteria met): Prevention or treatment of drug-induced or qrzic-asgmbgy-nhchjyg rigors - prochlorperazine injection 10 mg (COMPAZINE); 10 mg, intravenous, Every 6 hours PRN, nausea, vomiting, Starting on Thu05/27/23Prochlorperazine should be used first for break-through nausea/vomiting. - ondansetron (PF) injection 8 mg (ZOFRAN); 8 mg, intravenous, Every 8 hours PRN, nausea, vomiting,Starting on Thu05/27/23If nausea/vomiting is unrelieved by prochlorperazine, give ondansetron. - LORazepam injection 0.5 mg (ATIVAN); 0.5 mg, intravenous, Every 8 hours PRN, nausea, vomiting, Starting on Thu05/27/23, For 24 hoursIf nausea/vomiting is unrelieved by prochlorperazine or ondansetron or if the patient is having anxiety symptoms, give lorazepam. If ineffective, may repeat once after 30 minutes. Shortage on injection, use oral when possible For intravenous use, dilute with equal volume of 0.9% NS - NaCl 0.9% infusion; 20 mL/hr, intravenous, Continuous Infusion: Per Instructions PRN, IV station engineer main line, Starting on Thu05/28/23, For 1 day - ondansetron (PF) injection 8 mg (ZOFRAN); 8 mg, intravenous, Once, For 1 dose - prochlorperazine injection 10 mg (COMPAZINE); 10 mg, intravenous, Every 6 hours PRN, nausea, vomiting, Starting on Thu05/28/23Prochlorperazine should be used first for break-through nausea/vomiting. - ondansetron (PF) injection 8 mg (ZOFRAN); 8 mg, intravenous, Every 8 hours PRN, nausea, vomiting,Starting on Thu05/28/23If nausea/vomiting is unrelieved by prochlorperazine, give ondansetron. - NaCl 0.9% infusion; 20 mL/hr, intravenous, Continuous Infusion: Per Instructions PRN, IV station engineer main line, Starting on Thu05/29/23, For 1 day - ondansetron (PF) injection 8 mg (ZOFRAN); 8 mg, intravenous, Once, For 1 dose - pegfilgrastim on-body injector 6 mg (NEULASTA ONPRO); 6 mg, subcutaneous, Once, For 1 doseI discussed options with patient: Did not discuss with patient - prochlorperazine injection 10 mg (COMPAZINE); 10 mg, intravenous, Every 6 hours PRN, nausea, vomiting, Starting on Thu05/29/23Prochlorperazine should be used first for break-through nausea/vomiting. - ondansetron (PF) injection 8 mg (ZOFRAN); 8 mg, intravenous, Every 8 hours PRN, nausea, vomiting,Starting on Thu05/29/23If nausea/vomiting is unrelieved by prochlorperazine, give ondansetron. - etoposide 120 mg in NaCl 0.9% [...] is DEHP-free. Administer with non-DEHP containing tubing. documented in this encounter Miscellaneous Notes * Addendum Note - Ac Desai M.B.B.S. - 05/06/2023 9:00 AM CDTAddended by: AC DESAI on: 05/06/2023 01:19 PM Modules accepted: Orders documented in this encounter Plan of Treatment Upcoming Encounters Date Type Department Care Team (Late st Contact Info) Description 11/18/2023 9:00 AM DISTRICT RESOURCE OFFICER Lab Department of Infusion Therapy in [address] [place] [address] Ac Desai M.B.B.S. [address] [place] [phone] 11/18/2023 10:00 AM DISTRICT RESOURCE OFFICER Office Visit Department of Oncology in [address] [place] [address] Ac Desai M.B.B.S. [address] [place] [phone] 11/18/2023 10:30 AM DISTRICT RESOURCE OFFICER Infusion Department of Infusion Therapy in [address] [place] [phone] Ac Desai M.B.B.S. [address] [place] [phone] 11/19/2023 10:30 AM DISTRICT RESOURCE OFFICER Infusion Department of Infusion Therapy in [address] [place] [address] Ac Desai M.B.B.S. [address] [place] [phone] 11/20/2023 10:30 AM DISTRICT RESOURCE OFFICER Infusion Department of Infusion Therapy in [address] [place] [address] Ac Desai M.B.B.S. [address] [place] [phone] 12/07/2023 9:30 AM DISTRICT RESOURCE OFFICER Lab Department of Infusion Therapy in [address] [place] [address] Ac Desai M.B.B.S. [address] [place] [phone] 12/07/2023 10:40 AM DISTRICT RESOURCE OFFICER Office Visit Department of Oncology in [address] [place] [address] Ac Desai M.B.B.S. [address] [place] [phone] 12/07/2023 11:00 AM DISTRICT RESOURCE OFFICER Infusion Department of Infusion Therapy in [address] [place] [address] Ac Desai M.B.B.S. [address] [place] [phone] 12/08/2023 10:30 AM DISTRICT RESOURCE OFFICER Infusion Department of Infusion Therapy in [address] [place] [address] Ac Desai M.B.B.S. [address] [place] [phone] 12/09/2023 10:30 AM DISTRICT RESOURCE OFFICER Infusion Department of Infusion Therapy in [address] [place] [address] Ac Desai M.B.B.S. [address] [place] [phone] documented as of this encounter Results * US Lower Extremity Veins Right (05/06/2023 1:23 PM CDT) Anatomical Region Laterality Modality Lower Extremity, Ultrasound RST LOS, Ultrasound ARZ LOS, Ultrasound FLA LOS Right Ultrasound 05/06/2023 1:34 PM CDT Impressions 05/06/2023 1:41 PM CDT Positive for acute DVT. Occlusive thrombus in the right gastrocnemius and soleal veins. Findings discussed with Dr. Desai at 1:40 pm on 05/06/2023. Narrative 05/06/2023 1:41 PM CDT EXAM: US LOWER EXTREMITY VEINS RIGHT Exam performed with color and spectral Doppler analysis. COMPARISON: None. FINDINGS: RIGHT: Common Femoral Vein: Negative. Profunda Femoral Vein: Negative. Femoral Vein: Negative. Popliteal Vein: Negative. Gastrocnemius Veins: Acute DVT. Occlusive thrombus Soleal Veins: Acute DVT. Occlusive thrombus Posterior Tibial Veins: Negative where seen. Peroneal Veins: Negative where seen. Great Saphenous Vein: Negative where seen. Small Saphenous Vein: Not evaluated. Popliteal Fossa: Cyst measuring 3.8 x 0.8 x 5.7 cm. Other: n/a Information on venous thrombosis and management can be found on the [employer] site. Link [email or web address]/topic/clinical-answers/[email or web address]/[email or web address] Procedure Note Mahesh Marr D.O. - 05/06/2023 EXAM: US LOWER EXTREMITY VEINS RIGHT Exam performed with color and spectral Doppler analysis. COMPARISON: None. FINDINGS: RIGHT: Common Femoral Vein: Negative. Profunda Femoral Vein: Negative. Femoral Vein: Negative. Popliteal Vein: Negative. Gastrocnemius Veins: Acute DVT. Occlusive thrombus Soleal Veins: Acute DVT. Occlusive thrombus Posterior Tibial Veins: Negative where seen. Peroneal Veins: Negative where seen. Great Saphenous Vein: Negative where seen. Small Saphenous Vein: Not evaluated. Popliteal Fossa: Cyst measuring 3.8 x 0.8 x 5.7 cm. Other: n/a Information on venous thrombosis and management can be found on the[employer] site. [email or web address]/topic/clinical-answers/[email or web address]/cpm [email or web address] 1725 IMPRESSION: Positive for acute DVT. Occlusive thrombus in the right gastrocnemius andsoleal veins. Findings discussed with Dr. Desai at 1:40 pm on 05/06/2023. Ac JOSEPH US PROCEDURE S documented in this encounter Visit Diagnoses Diagnosis Swelling Leg Right- Primary 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) Swelling Leg Right documented in this encounter Additional Health Concerns Infection Onset Date Last Indicated Resolved Time Protective Environment 04/15/2023 04/15/202306/30 6:36 AM CDT documented as of this encounter
--- OUTSIDE RECORDS SUMMARY | 2023-11-16 16:02 | XMS_ITS | Encounter Summary ---
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 [address] [place] [address] [id number] Region Referral ID Status Reason Start Date Expiration Date V isits Requested Visits Authorized [id number] Authorized 04/27/2023 03/31/2024 14 14 Encounter Details Date Type Department Care Team (Late st Contact Info) Description 05/06/2023 9:30 AM CDT Infusion Department of Infusion Therapy in [address] [place] [phone] Flakito Desai M.B.B.S. [address] [place] [phone] Malignant Neoplasm Of Unspecified Part Of Lung [...] st Contact Info) Description 11/18/2023 9:00 AM PROCUREMENT TECHNICIAN Lab Department of Infusion Therapy in [address] [place] [address] Flakito Desai M.B.B.S. [address] [place] [phone] 11/18/2023 10:00 AM PROCUREMENT TECHNICIAN Office Visit Department of Oncology in [address] [place] [address] Flakito Desai M.B.B.S. [address] [place] [phone] 11/18/2023 10:30 AM PROCUREMENT TECHNICIAN Infusion Department of Infusion Therapy in [address] [place] [address] Flakito Desai M.Antonietta.B.S. [address] [place] [phone] 11/19/2023 10:30 AM PROCUREMENT TECHNICIAN Infusion Department of Infusion Therapy in [address] [place] [address] Flakito Desai M.B.B.S. [address] [place] [phone] 11/20/2023 10:30 AM PROCUREMENT TECHNICIAN Infusion Department of Infusion Therapy in [address] [place] [address] Flakito Desai M.B.B.S. [address] [place] [phone] 12/07/2023 9:30 AM PROCUREMENT TECHNICIAN Lab Department of Infusion Therapy in [address] [place] [address] Flakito Desai M.B.B.S. [address] [place] [phone] 12/07/2023 10:40 AM PROCUREMENT TECHNICIAN Office Visit Department of Oncology in [address] [place] [address] Flakito Desai M.B.B.S. [address] [place] [phone] 12/07/2023 11:00 AM PROCUREMENT TECHNICIAN Infusion Department of Infusion Therapy in [address] [place] [address] Flakito Desai M.B.B.S. [address] [place] [phone] 12/08/2023 10:30 AM PROCUREMENT TECHNICIAN Infusion Department of Infusion Therapy in [address] [place] [address] Flakito Desai M.B.B.S. [address] [place] [address] 12/09/2023 10:30 AM PROCUREMENT TECHNICIAN Infusion Department of Infusion Therapy in [address] [place], [place] [address] Flakito Desai M.B.B.S. [address] [place] [phone] documented as of this encounter Visit Diagnoses [...] mL/hr, Administer over 30 Minutes, Once, On Thu05/06/23 at 0945, For 1 dose, If the first infusion is tolerated, all subsequent infusions may be delivered over 30 minutes. Do not administer as an intravenous push or bolus. Do not co-administer other drugs through the same intravenous line. Do NOT shake. New 05/06/2023 10:35 AM CDT 1,200 mg 590 mL/hr CARBOplatin 500 mg in NaCl 0.9% 325 mL IVPB (PARAPLATIN) 500 mg (Target AUC = 5), intravenous, at 650 mL/hr, Administer over 30 Minutes, Once, On Thu05/06/23 at 1015, For 1 dose New 05/06/2023 11:07 AM CDT 500 mg 650 mL/hr dexAMETHasone in NaCl 0.9% IVPB 12 mg (DECADRON) 12 mg, intravenous, at 200 mL/hr, Administer over 15 Minutes, Once, On Thu05/06/23 at 0945, For 1 dose, Refrigerate New 05/06/2023 9:46 AM CDT 12 mg 200 mL/hr etoposide 120 mg in NaCl 0.9% (non-PVC) 554 mL IVPB (TOPOSAR) 120 mg (rounded from 124.8 mg = 60 mg/m2 ? 2.08 m2 Order-specific BSA), intravenous, at 554 mL/hr, Administer over 60 Minutes, Once, On Thu05/06/23 at 1045, For 1 dose, HAZARDOUS - Handle with care. Solutions should be checked carefully for precipitation before and during administration. Discard if precipitation occurs. Ensure bag is DEHP-free. Administer with non-DEHP containing tubing. New Bag 05/06/2023 11:41 AM CDT 120 mg 554 mL/hr famotidine injection 20 mg (PEPCID) 20 mg, intravenous, Once, On Thu05/06/23 at 0945, For 1 dose Given 05/06/2023 10:23 AM CDT 20 mg fosaprepitant in NaCl 0.9% IVPB 150 mg (EMEND) 150 mg, intravenous, at 500 mL/hr, Administer over 30 Minutes, Once, On Thu05/06/23 at 0945, For 1 dose, Incompatible with solutions containing divalent cations (calcium, magnesium) including lactated Ringer's solution. New Bag 05/06/2023 9:46 AM CDT 150 mg 500 mL/hr heparin flush 500 Units 500 Units, intra-catheter, As needed, line care, Starting on Thu05/06/23 at 0928, When no infusion to maintain patency: For IVAD accessed, not in use, and/or prior to hospital discharge, flush every 7 days after 0.9% preservative-free NaCL flush. For IVAD NOT accessed or used, flush every 4 weeks after 0.9% preservative-free NaCL flush. Given 05/06/2023 12:39 PM CDT 500 Units ondansetron in NaCl 0.9% IVPB 16 mg (ZOFRAN) 16 mg, intravenous, at 232 mL/hr, Administer over 15 Minutes, Once, On Thu05/06/23 at 0945, For 1 dose New Bag 05/06/2023 10:03 AM CDT 16 mg 232 mL/hr sodium chloride 0.9 % injection 10 mL 10 mL, intra-catheter, As needed, line care, Starting on Thu05/06/23 at 0928, When no infusion to maintain patency: For IVAD accessed and in use, flush every 12 hours. For IVAD accessed, not in use, and/or prior to hospital discharge, flush every 7 days followed by Heparin flush. For IVAD NOT accessed or used, flush every 4 weeks followed by Heparin flush. Given 05/06/2023 12:39 PM CDT 10 mL documented in this encounter Additional Health Concerns Infection Onset Date Last Indicated Resolved Time Protective Environment 04/15/2023 04/15/202306/30 6:36 AM CDT documented as of this encounter
--- OUTSIDE RECORDS SUMMARY | 2023-11-16 16:02 | XMS_ITS | Encounter Summary ---
Author Name Unknown Organization 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 [address] [place] [address] [facility] Region Referral ID Status Reason Start Date Expiration Date V isits Requested Visits Authorized [id number] Authorized 04/27/2023 03/31/2024 14 14 Encounter Details Date Type Department Care Team (Late st Contact Info) Description 05/08/2023 9:30 AM CDT Infusion Department of Infusion Therapy in [address] [place] [phone] Flakito Desai M.B.B.S. [address] [place] [phone] Malignant Neoplasm Of Unspecified Part Of Lung [...] Sign Reading Time Taken Comments Blood Pressure 129/83 05/08/2023 9:47 AM CDT Pulse 82 05/08/2023 9:47 AM CDT Temperature 36.5 ??C (97.7 ??F) 05/08/2023 9:47 AM CD T Respiratory Rate - - Oxygen Saturation - - Inhaled Oxygen Concentration - - Weight - - Height - - Body Mass Index - - documented in this encounter Plan of Treatment Upcoming Encounters Date Type Department Care Team (Late st Contact Info) Description 11/18/2023 9:00 AM MANAGER SUPPORT Lab Department of Infusion Therapy in [address] [place] [address] Flakito Desai, [place].B.B.S. [address] [place] [address] 11/18/2023 10:00 AM MANAGER SUPPORT Office Visit Department of Oncology in [address] [place] [address] Flakito Desai M.B.B.S. [address] [place] [address] 11/18/2023 10:30 AM MANAGER SUPPORT Infusion Department of Infusion Therapy in [address] [place] [address] Flakito Desai M.B.B.S. [address] [place] [phone] 11/19/2023 10:30 AM MANAGER SUPPORT Infusion Department of Infusion Therapy in [address] [place] [address] Flakito Desai M.B.B.S. [address] [place] [phone] 11/20/2023 10:30 AM MANAGER SUPPORT Infusion Department of Infusion Therapy in [address] [place] [address] Flakito Desai M.B.B.S. [address] [place] [phone] 12/07/2023 9:30 AM MANAGER SUPPORT Lab Department of Infusion Therapy in [address] [place] [address] Flakito Desai M.B.B.S. [address] [place] [phone] 12/07/2023 10:40 AM MANAGER SUPPORT Office Visit Department of Oncology in [address] [place] [address] Flakito Desai M.B.B.S. [address] [place] [phone] 12/07/2023 11:00 AM MANAGER SUPPORT Infusion Department of Infusion Therapy in [address] [place] [address] Flakito Desai M.B.B.S. [address] [place] [address] 12/08/2023 10:30 AM MANAGER SUPPORT Infusion Department of Infusion Therapy in [address] [place] [address] Flakito Desai M.B.B.S. [address] [place] [phone] 12/09/2023 10:30 AM MANAGER SUPPORT Infusion Department of Infusion Therapy in [address] [place] [address] Flakito Desai M.B.B.S. [address] [place] [phone] documented as of this encounter Visit Diagnoses [...] mL/hr, Administer over 60 Minutes, Once, On Thu05/08/23 at 1000, For 1 dose, HAZARDOUS - Handle with care. Solutions should be checked carefully for precipitation before and during administration. Discard if precipitation occurs. Ensure bag is DEHP-free. Administer with non-DEHP containing tubing. New Bag 05/08/2023 10:23 AM CDT 120 mg 554 mL/hr heparin flush 500 Units 500 Units, intra-catheter, As needed, line care, Starting on Thu05/08/23 at 1109, When no infusion to maintain patency: For IVAD accessed, not in use, and/or prior to hospital discharge, flush every 7 days after 0.9% preservative-free NaCL flush. For IVAD NOT accessed or used, flush every 4 weeks after 0.9% preservative-free NaCL flush. Given 05/08/2023 11:25 AM CDT 500 Units ondansetron (PF) injection 8 mg (ZOFRAN) 8 mg, intravenous, Once, On Thu05/08/23 at 1000, For 1 dose Given 05/08/2023 9:54 AM CDT 8 mg pegfilgrastim on-body injector 6 mg (NEULASTA ONPRO) 6 mg, subcutaneous, Once, On Thu05/08/23 at 1000, For 1 dose, I discussed options with patient: Did not discuss with patient Given 05/08/2023 10:28 AM CDT 6 mg Right Upper Abdomen documented in this encounter Additional Health Concerns Infection Onset Date Last Indicated Resolved Time Protective Environment 04/15/2023 04/15/202306/30 6:36 AM CDT documented as of this encounter
--- OUTSIDE RECORDS SUMMARY | 2023-11-16 16:02 | XMS_ITS | Encounter Summary ---
Author Name Unknown Organization [facility] Address [address] [place] [address] Care Team Providers Care Assistant Women'S Basketball Coach Name Role Phone Unavailable Primary Care Provider Unavailabl e Reason for Referral * Outpatient (Routine) - Closed Specialty Diagnoses / Procedures Referred By Contac t Referred To Contact Diagnoses Swelling Leg Right Procedures US Lower Extremity Veins Right Flakito Desai M.B.B.S. [address] [place] [phone] [facility] Referral ID Status Reason Start Date Expiration Date Visits Re quested Visits Authorized [id number] Closed 05/06/2023 05/05/2024 1 1 Reason for Visit * Outpatient (Routine) - Closed Specialty Diagnoses / Procedures Referred By Molina t Referred To Contact Diagnoses Swelling Leg Right Procedures US Lower Extremity Veins Right Flakito Desai M.B.B.S. [address] [place] [phone] [facility] Referral ID Status Reason Start Date Expiration Date Visits Re quested Visits Authorized [id number] Closed 05/06/2023 05/05/2024 1 1 Encounter Details Date Type Department Care Team (Latest Contact Info) Description 05/06/2023 12:49 PM CDT - 05/06/2023 11:59 PM CDT Hospital Encounter Department of Radiology in [address] [place] [phone] Flakito Desai M.B.B.S. [facility] [place] [address] Swelling Leg Right Discharge Disposition: Home or Self Care Social [...] 1 tablet by mouth daily. 0 03/30/2023 atorvastatin (LIPITOR) 10 mg tablet Take 10 mg by mouth daily. 0 06/17/2016 cholecalciferol, vitD3,/vit K2 (vitamin D3-vitamin K2) 125-90 mcg capsule Take 1 capsule by mouth daily. 0 fluticasone propionate (FLONASE) 50 mcg/actuation nasal spray Administer 2 sprays into nostril(s) daily. 0 ondansetron (ZOFRAN) 8 mg tablet Take 8 mg by mouth every 8 (eight) hours as needed for nausea. 0 03/17/2023 prochlorperazine (COMPAZINE) 10 mg tablet Take 10 mg by mouth every 6 (six) hours as needed for nausea or vomiting. 0 03/17/2023 tiotropium (Spiriva Respimat) 2.5 mcg/actuation inhaler Inhale 2 puffs daily. 0 10/06/2016 amLODIPine (NORVASC) 5 mg tablet Take 1 tablet by mouth daily. 0 03/07/2023 06/05/2023 famotidine (PEPCID) 20 mg tablet Take 20 mg by mouth 2 (two) times a day. 0 03/06/2023 06/04/2023 apixaban (ELIQUIS) 5 mg tablet Take 2 tablets (10 mg total) by mouth 2 (two) times a day for 7 days, THEN 1 tablet (5 mg total) 2 (two) times a day. 208 tablet 0 05/06/2023 10/02/2023 aspirin 81 mg chewable tablet Chew 81 mg daily. 0 023 dilTIAZem (TIAZAC/TAZTIA XT) 240 mg ER capsule Take 240 mg by mouth daily. 0 09/04/2016 09/23/2023 LORazepam (ATIVAN) 0.5 mg tablet TAKE 1 TABLET BY MOUTH EVERY 8 HOURS NEEDED FOR NAUSEA/VOMITING/ANXIE TY. IF INEFFECTIVE MAY REPEAT ONCE AFTER 30MINS. 0 04/07/2023 10/17/2023 mupirocin (BACTROBAN) 2 % ointment Apply 1 Application topically 3 (three) times a day. Apply to outer lip. 22 g 0 04/08/2023 10/17/2023 polyethylene glycol (MIRALAX) 17 gram powder packet Take 17 g by mouth daily as needed for constipation. Dissolve each 17 g dose in 240 mLs (8 ounces) of beverage. 0 10/17/2023 potassium chloride (KLORCON/K-TAB) 10 mEq ER tablet Take 10 mEq by mouth 2 (two) times a day. 0 03/20/2023 10/02/2023 prochlorperazine (COMPAZINE) 10 mg tablet Take 1 tablet by mouth every 6 (six) hours as needed for nausea. 0 03/17/2023 10/17/2023 sodium chloride 1 gram tablet Take 1 tablet (1 g total) by mouth 3 (three) times a day with meals. 2 with breakfast, 1 with lunch and 2 with supper 90 tablet 2 04/16/2023 05/27/2023 triamcinolone (KENALOG) 0.1 % dental paste Apply 1 Application to the mouth or throat 3 (three) times a day. 5 g 12 04/08/2023 10/17/2023 documented as of this encounter Plan of Treatment Upcoming Encounters Date Type Department Care Team (Late st Contact Info) Description 11/18/2023 9:00 AM BOILER INSTALLER Lab Department of Infusion Therapy in [address] [place] [address] Flakito Desai M.B.B.S. [address] [place] [phone] 11/18/2023 10:00 AM BOILER INSTALLER Office Visit Department of Oncology in [address] [place] [address] Flakito Desai M.B.B.S. [address] [place] [phone] 11/18/2023 10:30 AM BOILER INSTALLER Infusion Department of Infusion Therapy in [address] [place] [address] Flakito Desai M.B.B.S. [address] [place] [phone] 11/19/2023 10:30 AM BOILER INSTALLER Infusion Department of Infusion Therapy in [address] [place] [address] Flakito Desai M.B.B.S. [address] [place] [phone] 11/20/2023 10:30 AM BOILER INSTALLER Infusion Department of Infusion Therapy in [address] [place] [address] Flakito Desai M.B.B.S. [address] [place] [phone] 12/07/2023 9:30 AM BOILER INSTALLER Lab Department of Infusion Therapy in [address] [place] [address] Flakito Desai M.B.B.S. [address] [place] [phone] 12/07/2023 10:40 AM BOILER INSTALLER Office Visit Department of Oncology in [address] [place] [address] Flakito Desai M.B.B.S. [address] [place] [phone] 12/07/2023 11:00 AM BOILER INSTALLER Infusion Department of Infusion Therapy in [address] [place] [address] Flakito Desai M.B.B.S. [address] [place] [phone] 12/08/2023 10:30 AM BOILER INSTALLER Infusion Department of Infusion Therapy in [address] [place] [address] Flakito Desai M.B.B.S. [address] [place] [phone] 12/09/2023 10:30 AM BOILER INSTALLER Infusion Department of Infusion Therapy in [address] [place] [address] Flakito Desai M.Antonietta.B.S. [address] [place] [phone] documented as of this encounter Procedures Procedure Name Priority Date/Time Associated Diagnosis Comments US LOWER EXTREMITY VEINS RIGHT RAD - Routine (most inpatients and all outpatients) 05/06/2023 1:23 PM CDT Swelling Leg Right documented in this encounter Results * US Lower Extremity [...] and management can be found on the [employer] site. Link [email or web address] Procedure Note Mahesh Marr D.O. - 05/06/2023 [...] thrombosis and management can be found on the[employer] site. [email or web address] 1725 IMPRESSION: Positive for acute DVT. Occlusive thrombus in the right gastrocnemius andsoleal veins. Findings discussed with Dr. Desai at 1:40 pm on 05/06/2023. Flakito Choi IMG US PROCEDURE S documented in this encounter Visit Diagnoses Diagnosis Swelling Leg Right documented in this encounter Additional Health Concerns Infection Onset Date Last Indicated Resolved Time Protective Environment 04/15/2023 04/15/202306/30 6:36 AM CDT documented as of this encounter
--- OUTSIDE RECORDS SUMMARY | 2023-11-16 16:02 | XMS_ITS | Encounter Summary ---
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 [address] [place] [address] [facility] Region Referral ID Status Reason Start Date Expiration Date V isits Requested Visits Authorized [id number] Authorized 04/27/2023 03/31/2024 14 14 Encounter Details Date Type Department Care Team (Late st Contact Info) Description 05/06/2023 8:00 AM CDT Lab Department of Infusion Therapy in [address] [place] [phone] Flakito Desai M.B.B.S. [address] [place] [phone] Malignant Primary Neoplasm (Unknown Site) Unspecified (HCC) [...] st Contact Info) Description 11/18/2023 9:00 AM TRUMPET PLAYER Lab Department of Infusion Therapy in [address] [place] [address] Flakito Desai M.B.B.S. [address] [place] [phone] 11/18/2023 10:00 AM TRUMPET PLAYER Office Visit Department of Oncology in [address] [place] [address] Flakito Desai M.B.B.S. [address] [place] [phone] 11/18/2023 10:30 AM TRUMPET PLAYER Infusion Department of Infusion Therapy in [address] [place] [address] Flakito Desai M.Antonietta.B.S. [address] [place] [phone] 11/19/2023 10:30 AM TRUMPET PLAYER Infusion Department of Infusion Therapy in [address] [place] [address] Flakito Desai M.B.B.S. [address] [place] [phone] 11/20/2023 10:30 AM TRUMPET PLAYER Infusion Department of Infusion Therapy in [address] [place] [address] Flakito Desai M.B.B.S. [address] [place] [phone] 12/07/2023 9:30 AM TRUMPET PLAYER Lab Department of Infusion Therapy in [address] [place] [address] Flakito Desai M.B.B.S. [address] [place] [phone] 12/07/2023 10:40 AM TRUMPET PLAYER Office Visit Department of Oncology in [address] [place] [address] Flakito Desai M.B.B.S. [address] [place] [phone] 12/07/2023 11:00 AM TRUMPET PLAYER Infusion Department of Infusion Therapy in [address] [place] [address] Flakito Desai M.B.B.S. [address] [place] [phone] 12/08/2023 10:30 AM TRUMPET PLAYER Infusion Department of Infusion Therapy in [address] [place] [address] Flakito Desai M.B.B.S. [address] [place] [address] 12/09/2023 10:30 AM TRUMPET PLAYER Infusion Department of Infusion Therapy in [address] DOZIER, [place] [phone] Flakito Desai M.B.B.S. 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 LAB BLOOD ADD-ON [address] [address], [address] [address] * Phosphorus Inorganic (05/06/2023 8:22 AM CDT) Phosphorus (Inorganic), P 3.4 2.5 - 4.5 mg/dL 05/06/2023 8:50 AM CDT [facility] Blood (Blood, Venous) 05/06/2023 8:22 AM CDT 05/06/2023 8:26 AM CDT Flakito MurrietaSKeisha LAB BLOOD ADD-ON Performing Organization Address City/[facility]/ZIP Co de Phone Number [address] [address], [address] [address] * Magnesium (05/06/2023 8:22 AM CDT) Magnesium, P 1.7 1.7 - 2.3 mg/dL 05/06/2023 8:50 AM CDT [facility] Blood (Blood, Venous) 05/06/2023 8:22 AM CDT 05/06/2023 8:26 AM CDT Flakito MurrietaS. LAB BLOOD ADD-ON [address] [address], [address] [address] * (ABNORMAL) Comprehensive Metabolic Panel (05/06/2023 8:22 AM CDT) Potassium, P 4.3 3.6 - 5.2 mmol/L 05/06/2023 8:51 AM CDT [facility] Sodium, P 131(L) 135 - 145 mmol/L 05/06/2023 8:51 AM CDT [facility]MT Chloride, P 98 98 - 107 mmol/L 05/06/2023 8:51 AM CDT [facility] Bicarbonate, P 25 22 - 29 mmol/L 05/06/2023 8:50 AM CDT [facility] Anion Gap, P 8 7 - 15 05/06/2023 8:51 AM CDT [facility] BUN (Blood Urea Nitrogen), P 8 8 - 24 mg/dL 05/06/2023 8:50 AM CDT [facility]MT Creatinine 0.72(L) 0.74 - 1.35 mg/dL 05/06/2023 8:50 AM CDT [facility]MT Estimated GFR (eGFR) >90 >=60 mL/min/BS A 05/06/2023 8:50 AM CDT [facility]MT Comment: Estimated GFR calculated using the 2020 CKD_EPI creatinine equation. Calcium, Total, P 8.6(L) 8.8 - 10.2 mg/dL 05/06/2023 8:50 AM CDT [facility] Glucose, P 90 70 - 140 mg/dL 05/06/2023 8:50 AM CDT [facility]MT Protein, Total, P 5.9(L) 6.3 - 7.9 g/dL 05/06/2023 8:50 AM CDT [facility]MT Albumin, P 3.4(L) 3.5 - 5.0 g/dL 05/06/2023 8:50 AM CDT [facility]MT Aspartate Aminotransferase (AST), P 24 8 - 48 U/L 05/06/2023 8:50 AM CDT [facility]MT Alkaline Phosphatase, P 176(H) 40 - 129 U/L 05/06/2023 8:50 AM CDT [facility]MT Alanine Aminotransferase (ALT), P 16 7 - 55 U/L 05/06/2023 8:50 AM CDT [facility]MT Bilirubin, Total, P 0.7 <=1.2 mg/dL 05/06/2023 8:50 AM CDT [facility] Blood (Blood, Venous) 05/06/2023 8:22 AM CDT 05/06/2023 8:26 AM CDT Flakito MurrietaSKeisha LAB BLOOD ADD-ON [facility]- [address] [place] [address], [facility] FRMT [facility] in [address] [place] [address] * (ABNORMAL) CBC with Differential, Blood (05/06/2023 8:22 AM CDT) Hemoglobin 11.1(L) 13.2 - 16.6 g/dL 05/06/2023 8:29 AM CDT FRMT Hematocrit 32.5(L) 38.3 - 48.6 % 05/06/2023 8:29 AM CDT FRMT Erythrocytes 3.26(L) 4.35 - 5.65 x10(12)/L 05/06/2023 8:29 AM CDT FRMT MCV 99.7(H) 78.2 - 97.9 fL 05/06/2023 8:29 AM CDT FRMT RBC Distrib Width 16.0(H) 11.8 - 14.5 % 05/06/2023 8:29 AM CDT FRMT Platelet Count 291 135 - 317 x10(9)/L 05/06/2023 8:29 AM CDT FRMT Leukocytes 8.6 3.4 - 9.6 x10(9)/L 05/06/2023 8:29 AM CDT FRMT Neutrophils 5.69 1.56 - 6.45 x10(9)/L 05/06/2023 8:29 AM CDT FRMT Lymphocytes 1.53 0.95 - 3.07 x10(9)/L 05/06/2023 8:29 AM CDT FRMT Monocytes 1.29(H) 0.26 - 0.81 x10(9)/L 05/06/2023 8:29 AM CDT FRMT Eosinophils <0.03 0.03 - 0.48 x10(9)/L 05/06/2023 8:29 AM CDT FRMT Basophils 0.07 0.01 - 0.08 x10(9)/L 05/06/2023 8:29 AM CDT FRMT Blood (Blood, Venous) 05/06/2023 8:22 AM CDT 05/06/2023 8:26 AM CDT Flakito Choi LAB BLOOD ADD-ON [facility]- [address] [address], [facility] in [address] [address] documented in this encounter Visit Diagnoses Diagnosis [...] needed, line care, Starting on Thu05/06/23 at 0756, When IVAD Accessed and in Use: Flush post blood transfusion or post blood sampling. Given 05/06/2023 8:23 AM CDT 20 mL documented in this encounter Additional Health Concerns Infection Onset Date Last Indicated Resolved Time Protective Environment 04/15/2023 04/15/202306/30 6:36 AM CDT documented as of this encounter
--- OUTSIDE RECORDS SUMMARY | 2023-11-16 16:02 | XMS_ITS | Encounter Summary ---
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 [address] [place] [phone] [facility] Referral ID Status Reason Start Date Expiration Date Visits Re quested Visits Authorized [id number] Closed 04/08/2023 04/07/2024 1 1 Encounter Details Date Type Department Care Team (Latest Contact Info) Description 05/04/2023 10:47 AM CDT - 05/04/2023 1:12 PM CDT Hospital Encounter Department of Radiology in [place], [place] [address] [place] [phone] Flakito Desai M.B.BKeishaS. [address] [place] [phone] Andrei Rivera M.D. 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) Discharge Disposition: Home or Self Care Social History Tobacco Use Types Packs/Day Years Used Date Smoking Tobacco: Former Cigarettes Smokeless Tobacco: Never Tobacco Cessation:Counseling Given: Not Answered Alcohol Use Standard Drinks/Week Comments Not Currently [...] Sign Reading Time Taken Comments Blood Pressure 125/85 05/04/2023 12:45 PM CDT Pulse 74 05/04/2023 12:45 PM CDT Temperature 36.4 ??C (97.5 ??F) 05/04/2023 11:03 AM C DT Respiratory Rate 14 05/04/2023 12:45 PM CDT Oxygen Saturation 97% 05/04/2023 12:45 PM CDT Inhaled Oxygen Concentration - - Weight - - Height - - Body Mass Index - - documented in this encounter Discharge Instructions * Discharge Instr - Activity* Michelle Johnson, R.N. - 05/04/2023 12:53 PM CDT POST PORT PLACEMENT DISCHARGE INSTRUCTIONS Activity Talk to your provider about activity restrictions. Usually, activity is not restricted. Showering You may shower in 24 hours. Pat dry your incision dry. Do not use lotions or creams on your incision until it is completely healed. Do not take a tub bath, swim or go in a hot tub until the incision is completely healed. Most people are completely healed in about eight days. Pain Control The incision may cause some discomfort. This should get better over time. You may take any siux-azw-rojqfgw pain reliever, acetaminophen or generic Tylenol. Do not take more than 4 grams of acetaminophen in 24 hours. That equals 8 Extra Strength Tylenol (500mg tablets) or about 12 regular strength Tylenol (325mg). Incision Care You will have skin glue over your incision. This will start to flake off in about 5-7 days. DO NOT pick at this, let it fall off on it's own. Use of your Port Your port will only be utilized if absolutely necessary for blood draws, procedures, or while beinghospitalized. Every time your port is accessed, your risk for infection increases, especially when you have an acute illness/infection in the hospital. If your port becomes infected, it will have to be removed. Protecting you from infection is our highest priority. Call 911 or seek emergency medical care immediately if you: * Are feeling short of breath, have chest pain or pressure. * Notice drainage or bleeding from the Port site. * Notice the Port tubing has moved. Contact your health care provider within 24 hours if: * You have signs of infection, which include: - Drainage from the insertion site. - Redness, warmth, swelling or tenderness at the Port site. - Temperature of 100.4 degrees F or greater. - Chills with or without fever. * Your incision appears to be opening. * Your tubing appears to be coiled or raised up under the skin. * You have swelling in the arms, chest or neck. * You see a change in the Port's position in the chest or arm. If you have any questions or concerns, please call [phone] (select option 2), for the Interventional Radiology nurse. Our office hours are Thursday thru Thursday approx. 8:00-4:00pm. documented in this encounter Medications at Time of Discharge [...] hours as needed for nausea. 0 03/17/2023 tiotropium (Spiriva Respimat) 2.5 mcg/actuation inhaler Inhale 2 puffs daily. 0 10/06/2016 prochlorperazine (COMPAZINE) 10 mg tablet Take 10 mg by mouth every 6 (six) hours as needed for nausea or vomiting. 0 03/17/2023 amLODIPine (NORVASC) 5 mg tablet Take 1 tablet by mouth daily. 0 03/07/2023 06/05/2023 famotidine (PEPCID) 20 mg tablet Take 20 mg by mouth 2 (two) times a day. 0 03/06/2023 06/04/2023 aspirin 81 mg chewable tablet Chew 81 mg daily. 0 023 dilTIAZem (TIAZAC/TAZTIA XT) 240 mg ER capsule Take 240 mg by mouth daily. 0 09/04/2016 09/23/2023 mupirocin (BACTROBAN) 2 % ointment Apply 1 [...] a day. 5 g 12 04/08/2023 10/17/2023 LORazepam (ATIVAN) 0.5 mg tablet TAKE 1 TABLET BY MOUTH EVERY 8 HOURS NEEDED FOR NAUSEA/VOMITING/ANXIET Y. IF INEFFECTIVE MAY REPEAT ONCE AFTER 30MINS. 0 04/07/2023 10/17/2023 documented as of this encounter Procedure Notes * Andrei Rivera M.D. - 05/04/2023 12:45 PM CDT BRIEF POST PROCEDURE NOTE Vascular & Interventional Radiology PROCEDURE Left IJV port insertion PRE-PROCEDURE DIAGNOSIS Right small cell lung cancer POST-PROCEDURE DIAGNOSIS Same. PROCEDURE DETAILS / FINDINGS Left IJV Power-port insertion with the tip of the non-valved open-tipped catheter located near the superior cavoatrial junction. Catheter heparin-locked with 100 u/mL heparin. Catheter is ready to use. Please see Radiology Report for full details. DRY PRESS OPERATOR HELPER Oneil Rivera M.D. SPECIMENS REMOVED None ESTIMATED BLOOD LOSS <5ml COMPLICATIONS None. PATIENT DISPOSITION Return to Outpatient Unit for recovery. Discharge patient when discharge criteria met. PLAN Of note, this is a non-valved open-tipped catheter, and the Power-port catheter will need to be heparin-locked with 100 u/mL heparin after each use. documented in this encounter Plan of Treatment Upcoming Encounters Date Type Department Care Team (Late st Contact Info) Description 11/18/2023 9:00 AM GRAIN COMBINE DRIVER Lab Department of Infusion Therapy in [address] [place] [address] Flakito Desai M.B.B.S. [address] [place] [phone] 11/18/2023 10:00 AM GRAIN COMBINE DRIVER Office Visit Department of Oncology in [address] [place] [address] Flakito Desai M.B.B.S. [address] [place] [phone] 11/18/2023 10:30 AM GRAIN COMBINE DRIVER Infusion Department of Infusion Therapy in [address] [place] [address] Flaktio Desai M.B.B.S. [address] [place] [phone] 11/19/2023 10:30 AM GRAIN COMBINE DRIVER Infusion Department of Infusion Therapy in [address] [place] [address] Flakito Desai M.B.B.S. [address] [place] [phone] 11/20/2023 10:30 AM GRAIN COMBINE DRIVER Infusion Department of Infusion Therapy in [address] [place] [address] Flakito Desai M.B.B.S. [address] [place] [phone] 12/07/2023 9:30 AM GRAIN COMBINE DRIVER Lab Department of Infusion Therapy in [address] [place] [address] Flakito Desai M.B.B.S. [address] [place] [phone] 12/07/2023 10:40 AM GRAIN COMBINE DRIVER Office Visit Department of Oncology in [address] [place] [phone] Flakito Desai M.B.B.S. [address] [place] [phone] 12/07/2023 11:00 AM GRAIN COMBINE DRIVER Infusion Department of Infusion Therapy in [address] [place] [address] Flakito Desai M.B.B.S. [address] [place] [phone] 12/08/2023 10:30 AM GRAIN COMBINE DRIVER Infusion Department of Infusion Therapy in [address] [place] [address] Flakito Desai M.B.B.S. [address] [place] [phone] 12/09/2023 10:30 AM GRAIN COMBINE DRIVER Infusion Department of Infusion Therapy in [address] [place] [address] Flakito Desai M.B.B.S. 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 Of note, this port requires hep-locking with 100 u/mL heparin after each use. Narrative 05/04/2023 7:05 PM CDT EXAM: IR IMPLANTED VASCULAR ACCESS DEVICE PLACEMENT HISTORY: 77-year-old male with right lung small cell cancer COMPARISON: PET/CT from 05/04/2023 PROCEDURAL PERSONNEL: Attending: Andrei Rivera PREPROCEDURE: Patient seen, evaluated, and history reviewed. Discussed risks, benefits, alternatives for procedure, and obtained informed consent. ??Patient understood the information and questions answered. Immediately prior to starting the procedure, in the presence of the assisting personnel, procedural pause was conducted to verify correct patient identity and verification of procedure to be performed, and as applicable, correct side and site, correct patient position, availability of implants, special equipment, or special requirements, and all image and specimen identification data. The roles and responsibilities of care team members were discussed. The medication list was reviewed and there are no changes to current medications. Patient education provided by a care steam brush operator. Patient was ready to learn with no apparent learning barriers were identified. Post-procedure care explained; patient expressed understanding of the content. PROCEDURE DETAILS: Procedural consent obtained: Yes Sterile Prep: All elements of maximal sterile barrier technique, including hand hygiene and cutaneous antisepsis with 2% chlorhexidine were used. A time-out was performed prior to the procedure. Anesthesia type: The patient did not require moderate sedation. Local anesthesia was achieved with 1% lidocaine. Sedation time: Not applicable. Estimated Blood Loss: Less than 10 mL. TECHNIQUE: Imaging guidance: Ultrasound and fluoroscopy with permanent image storage Access Vessel: Left Internal Jugular Vein due to presence of right lung cancer. Venogram: No Venous access device: 8 Omani single lumen PowerPort with non-valved open-ended catheter tip. Of note, this is not a Groshong catheter. Ultrasound was used to evaluate the target vessel prior to accessing it. The length of the target vessel was evaluated for internal echoes, stenosis and patency. The subcutaneous tissues were infiltrated with 1% lidocaine. A 21-guage micropuncture set was used to access the vessel under ultrasound guidance. A permanent image was archived for the patient record. A small incision was made in the subcutaneous tissues of the chest, and a pocket was created for the implantable port. The port was placed into the pocket. Using blunt dissection, a tunnel was created from the pocket to the venotomy site, and the catheter was pulled across the tunnel. The catheter was cut to an appropriate length, and after a peel-away sheath was placed over the wire at the venotomy site, the catheter was advanced through the peel-away sheath which was then removed. The chest incision was closed using resorbable suture and tissue adhesive. The neck site was closed with tissue adhesive. The port was heparin-locked with 100 u/mL heparin. Intraprocedural or immediate post-procedural complications: None FINDINGS: Sonographic pre-procedural evaluation showed patent access vessel and no thrombosis. Catheter tip location: A final spot fluoroscopic image was obtained and stored demonstrating the catheter tip to be located near the superior cavoatrial junction. Additional observations: N/A PLAN: The port may be used immediately. Procedure Note Andrei Rivera M.D. - 05/04/2023 EXAM: IR IMPLANTED VASCULAR ACCESS DEVICE PLACEMENT HISTORY: 77-year-old male with right lung small cell cancer COMPARISON: PET/CT from 05/04/2023 PROCEDURAL PERSONNEL: Attending: Andrei Rivera PREPROCEDURE: Patient seen, evaluated, and history reviewed. Discussedrisks, benefits, alternatives for procedure, and obtained informed consent. Patient understood theinformation and questions answered. Immediately prior to starting the procedure, in the presence ofthe assisting personnel, procedural pause was conducted to verify correct patient identity andverification of procedure to be performed, and as applicable, correct side and site, correct patientposition, availability of implants, special equipment, or special requirements, and all image andspecimen identification data. The roles and responsibilities of care team members were discussed.The medication list was reviewed and there are no changes to current medications. Patienteducation provided by a care steam brush operator. Patient was ready to learn with no apparent learning barriers wereidentified. Post-procedure care explained; patient expressed understanding of thecontent. PROCEDURE DETAILS: Procedural consent obtained: Yes Sterile Prep: All elements of maximal sterile barrier technique, includinghand hygiene and cutaneous antisepsis with 2% chlorhexidine were used. A time-out was performed prior to the procedure. Anesthesia type: The patient did not require moderate sedation. Localanesthesia was achieved with 1% lidocaine. Sedation time: Not applicable. Estimated Blood Loss: Less than 10 mL. TECHNIQUE: Imaging guidance: Ultrasound and fluoroscopy with permanent imagestorage Access Vessel: Left Internal Jugular Vein due to presence of right lungcancer. Venogram: No Venous access device: 8 Omani single lumen PowerPort with wzk-dguqsfrjxp-rrlrt catheter tip. Of note, this is not a Groshong catheter. Ultrasound was used to evaluate the target vessel prior to accessing it.The length of the target vessel was evaluated for internal echoes, stenosis and patency. Thesubcutaneous tissues were infiltrated with 1% lidocaine. A 21-guage micropuncture set was used toaccess the vessel under ultrasound guidance. A permanent image was archived for the patientrecord. A small incision was made in the subcutaneous tissues of the chest, and a pocket was createdfor the implantable port. The port was placed into the pocket. Using blunt dissection, a tunnel wascreated from the pocket to the venotomy site, and the catheter was pulled across the tunnel. Thecatheter was cut to an appropriate length, and after a peel-away sheath was placed over the wireat the venotomy site, the catheter was advanced through the peel-away sheath which was then removed.The chest incision was closed using resorbable suture and tissue adhesive. The neck site wasclosed with tissue adhesive. The port was heparin-locked with 100 u/mL heparin. Intraprocedural or immediate post-procedural complications: None FINDINGS: Sonographic pre-procedural evaluation showed patent access vessel and nothrombosis. Catheter tip location: A final spot fluoroscopic image was obtained andstored demonstrating the catheter tip to be located near the superior cavoatrial junction. Additional observations: N/A PLAN: The port may be used immediately. IMPRESSION: Insertion of left internal jugular vein subcutaneous PowerPort withnon-valved open-ended catheter tip. Of note, this port requires hep-locking with 100 u/mL heparin aftereach use. 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 May repeat every 2 minutes to a maximum of 200 mcg, until pain score of 3 or less, or until the patient meets the pain comfort goal, or RASS 0 to -2. Do not give if respiratory rate is less than 8 breaths/minute., Starting on Thu05/04/23 at 1212, For 3 hours, Intraprocedure (RAD) flumazeniL injection 0.2 mg (ROMAZICON) 0.2 mg, intravenous, Once as needed, reversal, Starting on Thu05/04/23 at 1212, For 1 dose, Intraprocedure (RAD), Administer once if patient has a RASS score of -4, -5 and has a respiratory rate less than 8 breaths/minute. heparin flush As needed, Starting on Thu05/04/23 at 1236, Intra-Op Given 05/04/2023 12:36 PM CDT 300 Units lidocaine-sodium bicarbonate (buffered) 0.9%-8.4% injection infiltration, As needed, Starting on Thu05/04/23 at 1216, Intra-Op Given 05/04/2023 12:23 PM CDT 10 mL Given 05/04/2023 12:16 PM CDT 5 mL midazolam (PF) injection 0.25 mg (VERSED) 0.25 mg, intravenous, Every 2 min PRN, sedation, RASS -2, Starting on Thu05/04/23 at 1212, Intraprocedure (RAD), May repeat every 2 minutes to a maximum of 5 mg. Do not give if respiratory rate is less than 8 breaths/minute. midazolam (PF) injection 0.5 mg (VERSED) 0.5 mg, intravenous, Once as needed, sedation, Starting on Thu05/04/23 at 1212, For 1 dose, Intraprocedure (RAD) midazolam (PF) injection 0.5 mg (VERSED) 0.5 mg, intravenous, Every 2 min PRN, sedation, RASS -1, Starting on Thu05/04/23 at 1212, Intraprocedure (RAD), May repeat every 2 minutes for a maximum of 5 mg. Do not give if respiratory rate is less than 8 breaths/minute. midazolam (PF) injection 1 mg (VERSED) 1 mg, intravenous, Every 2 min PRN, sedation, RASS 0, Starting on Thu05/04/23 at 1212, Intraprocedure (RAD), May repeat every 2 minutes for a maximum of 5 mg. Do not give if respiratory rate is less than 8 breaths/minute. NaCl 0.9% infusion 20 mL/hr, intravenous, Once as needed, to keep vein open, Starting on Thu05/04/23 at 1212, For 1 dose, Intraprocedure (RAD) naloxone injection 0.2 mg 0.2 mg, intravenous, Once as needed, respiratory depression, Starting on Thu05/04/23 at 1212, For 1 dose, Intraprocedure (RAD), Administer once if patient has a RASS score of -4, -5 and has a respiratory rate less than 8 breaths/minute. ondansetron (PF) injection 4 mg (ZOFRAN) 4 mg, intravenous, Once as needed, nausea, vomiting, Starting on Thu05/04/23 at 1212, For 1 dose, Intraprocedure (RAD) sodium chloride 0.9 % injection 10 mL 10 mL, intravenous, As needed, line care, Starting on Thu05/04/23 at 1052, Preprocedure (RAD), Peripheral Intravenous Catheter and Rapid Infusion Catheter, prior to blood sampling, post blood transfusion or post blood sampling sodium chloride 0.9 % injection 3 mL 3 mL, intravenous, As needed, line care, Starting on Thu05/04/23 at 1052, Preprocedure (RAD), Prior to and following infusion and between multiple consecutive infusions: sodium chloride 0.9 % injection sodium chloride 0.9 % injection 3 mL 3 mL, intravenous, Every 12 hours scheduled, First dose on Thu05/04/23 at 2100, Preprocedure (RAD), Peripheral Intravenous Catheter and Rapid Infusion Catheter, when no infusion to maintain patency documented in this encounter Active and Recently Administered Medications Times are shown in CDT. Scheduled Medication Order 05/02/2023 05/03/2023 05/04/2023 sodium chloride 0.9 % injection 3 mL 3 mL, intravenous, Every 12 hours scheduled, First dose on Thu05/04/23 at 2100, Preprocedure (RAD), Peripheral Intravenous Catheter and Rapid Infusion Catheter, when no infusion to maintain patency PRN Medication Order 05/02/2023 05/03/2023 05/04/2023 fentaNYL injection 25 mcg (SUBLIMAZE) 25 mcg, intravenous, Every 2 min PRN, sedation, Administer over 1 minute immediately prior to the procedure. May repeat every 2 minutes to a maximum of 200 mcg, until pain score of 3 or less, or until the patient meets the pain comfort goal, or RASS 0 to -2. Do not give if respiratory rate is less than 8 breaths/minute., Starting on Thu05/04/23 at 1212, For 3 hours, Intraprocedure (RAD) flumazeniL injection 0.2 mg (ROMAZICON) 0.2 mg, intravenous, Once as needed, reversal, Starting on Thu05/04/23 at 1212, For 1 dose, Intraprocedure (RAD), Administer once if patient has a RASS score of -4, -5 and has a respiratory rate less than 8 breaths/minute. heparin flush (COMPLETED) As needed, Starting on Thu05/04/23 at 1236, Intra-Op 1236 (Given - Provid er: Andrei Rivera M.D.) lidocaine-sodium bicarbonate (buffered) 0.9%-8.4% injection (COMPLETED) infiltration, As needed, Starting on Thu05/04/23 at 1216, Intra-Op 1216 (Given - Provid er: Andrei Rivera M.D.)1223 (Given - Provider: Andrei Rivera M.D.) midazolam (PF) injection 0.25 mg (VERSED) 0.25 mg, intravenous, Every 2 min PRN, sedation, RASS -2, Starting on Thu05/04/23 at 1212, Intraprocedure (RAD), May repeat every 2 minutes to a maximum of 5 mg. Do not give if respiratory rate is less than 8 breaths/minute. midazolam (PF) injection 0.5 mg (VERSED) 0.5 mg, intravenous, Once as needed, sedation, Starting on Thu05/04/23 at 1212, For 1 dose, Intraprocedure (RAD) midazolam (PF) injection 0.5 mg (VERSED) 0.5 mg, intravenous, Every 2 min PRN, sedation, RASS -1, Starting on Thu05/04/23 at 1212, Intraprocedure (RAD), May repeat every 2 minutes for a maximum of 5 mg. Do not give if respiratory rate is less than 8 breaths/minute. midazolam (PF) injection 1 mg (VERSED) 1 mg, intravenous, Every 2 min PRN, sedation, RASS 0, Starting on Thu05/04/23 at 1212, Intraprocedure (RAD), May repeat every 2 minutes for a maximum of 5 mg. Do not give if respiratory rate is less than 8 breaths/minute. NaCl 0.9% infusion 20 mL/hr, intravenous, Once as needed, to keep vein open, Starting on Thu05/04/23 at 1212, For 1 dose, Intraprocedure (RAD) naloxone injection 0.2 mg 0.2 mg, intravenous, Once as needed, respiratory depression, Starting on Thu05/04/23 at 1212, For 1 dose, Intraprocedure (RAD), Administer once if patient has a RASS score of -4, -5 and has a respiratory rate less than 8 breaths/minute. ondansetron (PF) injection 4 mg (ZOFRAN) 4 mg, intravenous, Once as needed, nausea, vomiting, Starting on Thu05/04/23 at 1212, For 1 dose, Intraprocedure (RAD) sodium chloride 0.9 % injection 10 mL 10 mL, intravenous, As needed, line care, Starting on Thu05/04/23 at 1052, Preprocedure (RAD), Peripheral Intravenous Catheter and Rapid Infusion Catheter, prior to blood sampling, post blood transfusion or post blood sampling sodium chloride 0.9 % injection 3 mL 3 mL, intravenous, As needed, line care, Starting on Thu05/04/23 at 1052, Preprocedure (RAD), Prior to and following infusion and between multiple consecutive infusions: sodium chloride 0.9 % injection documented in this encounter Additional Health Concerns Infection Onset Date Last Indicated Resolved Time Protective Environment 04/15/2023 04/15/202306/30 6:36 AM CDT documented as of this encounter
--- OUTSIDE RECORDS SUMMARY | 2023-11-16 16:02 | XMS_ITS | Encounter Summary ---
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 [address] [place] [phone] [facility] Hem Onc [facility] [address] [place] [phone] Referral ID Status Reason Start Date Expiration Date Visits Re quested Visits Authorized [id number] Closed 04/01/2023 03/31/2024 99 99 Encounter Details Date Type Department Care Team (Late st Contact Info) Description 05/25/2023 2:30 PM CDT Infusion Department of Infusion Therapy in [address] [place] [phone] Flakito Desai M.B.B.S. [address] [place] [phone] Malignant Primary Neoplasm (Unknown Site) Unspecified (HCC) [...] Sign Reading Time Taken Comments Blood Pressure 139/84 05/25/2023 2:28 PM CDT Pulse 79 05/25/2023 2:28 PM CDT Temperature 36.1 ??C (96.9 ??F) 05/25/2023 2:28 PM CD T Respiratory Rate - - Oxygen Saturation 95% 05/25/2023 2:28 PM CDT Inhaled Oxygen Concentration - - Weight - - Height - - Body Mass Index - - documented in this encounter Plan of Treatment Upcoming Encounters Date Type Department Care Team (Late st Contact Info) Description 11/18/2023 9:00 AM FIELD COIL WINDER Lab Department of Infusion Therapy in [address] [place] [address] Flakito Desai M.Antonietta.B.S. [address] [place] [phone] 11/18/2023 10:00 AM FIELD COIL WINDER Office Visit Department of Oncology in [address] [place] [address] Flakito Desai M.B.B.S. [address] [place] [phone] 11/18/2023 10:30 AM FIELD COIL WINDER Infusion Department of Infusion Therapy in [address] [place] [address] Flakito Desai M.B.B.S. [address] [place] [phone] 11/19/2023 10:30 AM FIELD COIL WINDER Infusion Department of Infusion Therapy in [address] [place] [address] Flakito Desai M.B.B.S. [address] [place] [phone] 11/20/2023 10:30 AM FIELD COIL WINDER Infusion Department of Infusion Therapy in [address] [place] [address] Flakito Desai M.B.B.S. [address] [place] [phone] 12/07/2023 9:30 AM FIELD COIL WINDER Lab Department of Infusion Therapy in [address] [place] [address] Flakito Desai M.B.B.S. [address] [place] [phone] 12/07/2023 10:40 AM FIELD COIL WINDER Office Visit Department of Oncology in [address] [place] [address] Flakito Desai M.B.B.S. [address] [place] [phone] 12/07/2023 11:00 AM FIELD COIL WINDER Infusion Department of Infusion Therapy in [address] [place] [address] Flakito Desai M.B.B.S. [address] [place] [phone] 12/08/2023 10:30 AM FIELD COIL WINDER Infusion Department of Infusion Therapy in [address] [place] [address] Flakito Desai M.B.B.S. [address] [place] [phone] 12/09/2023 10:30 AM FIELD COIL WINDER Infusion Department of Infusion Therapy in [address] [place], [place] [address] Flakito Desai M.B.B.S. [address] [place] [phone] documented as of this encounter Visit Diagnoses [...] intra-catheter, As needed, line care, Starting on Thu05/25/23 at 1425, When no infusion to maintain patency: For IVAD accessed, not in use, and/or prior to hospital discharge, flush every 7 days after 0.9% preservative-free NaCL flush. For IVAD NOT accessed or used, flush every 4 weeks after 0.9% preservative-free NaCL flush. Given 05/25/2023 3:45 PM CDT 500 Units NaCl 0.9 % bolus 1,000 mL 1,000 mL, intravenous, at 1,000 mL/hr, Administer over 1 Hours, Once, On Thu05/25/23 at 1445, For 1 dose New Bag 05/25/2023 2:40 PM CDT 1,000 mL 1000 mL/hr ondansetron (PF) injection 4 mg (ZOFRAN) 4 mg, intravenous, Once, On Thu05/25/23 at 1445, For 1 dose, Notify provider if patient remains symptomatic after administration. Given 05/25/2023 2:41 PM CDT 4 mg sodium chloride 0.9 % injection 10 mL 10 mL, intra-catheter, As needed, line care, Starting on Thu05/25/23 at 1425, When no infusion to maintain patency: For IVAD accessed and in use, flush every 12 hours. For IVAD accessed, not in use, and/or prior to hospital discharge, flush every 7 days followed by Heparin flush. For IVAD NOT accessed or used, flush every 4 weeks followed by Heparin flush. Given 05/25/2023 3:45 PM CDT 10 mL documented in this encounter Additional Health Concerns Infection Onset Date Last Indicated Resolved Time Protective Environment 04/15/2023 04/15/202306/30 6:36 AM CDT documented as of this encounter
--- OUTSIDE RECORDS SUMMARY | 2023-11-16 16:02 | XMS_ITS | Encounter Summary ---
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 [address] [place] [phone] [facility] Region Referral ID Status Reason Start Date Expiration Date V isits Requested Visits Authorized [id number] Authorized 04/27/2023 03/31/2024 14 14 Encounter Details Date Type Department Care Team (Late st Contact Info) Description 05/07/2023 9:30 AM CDT Infusion Department of Infusion Therapy in [address] [place] [phone] Flakito Desai M.B.B.S. [address] [place] [phone] Malignant Primary Neoplasm (Unknown Site) Unspecified (HCC) [...] Sign Reading Time Taken Comments Blood Pressure 122/72 05/07/2023 9:34 AM CDT Pulse 101 05/07/2023 9:34 AM CDT Temperature 36.4 ??C (97.6 ??F) 05/07/2023 9:34 AM CD T Respiratory Rate - - Oxygen Saturation 98% 05/07/2023 9:34 AM CDT Inhaled Oxygen Concentration - - Weight - - Height - - Body Mass Index - - documented in this encounter Plan of Treatment Upcoming Encounters Date Type Department Care Team (Late st Contact Info) Description 11/18/2023 9:00 AM FRONT MAN Lab Department of Infusion Therapy in [address] [place] [address] Flakito Desai M.B.B.S. [address] [place] [phone] 11/18/2023 10:00 AM FRONT MAN Office Visit Department of Oncology in [address] [place] [address] Flakito Desai M.B.B.S. [address] [place] [phone] 11/18/2023 10:30 AM FRONT MAN Infusion Department of Infusion Therapy in [address] [place] [address] Flakito Desai M.B.B.S. [address] [place] [phone] 11/19/2023 10:30 AM FRONT MAN Infusion Department of Infusion Therapy in [address] [place] [address] Flakito Desai M.B.B.S. [address] [place] [phone] 11/20/2023 10:30 AM FRONT MAN Infusion Department of Infusion Therapy in [address] [place] [address] Flakito Desai M.B.B.S. [address] [place] [phone] 12/07/2023 9:30 AM FRONT MAN Lab Department of Infusion Therapy in [address] [place] [address] Flakito Desai M.B.B.S. [address] [place] [phone] 12/07/2023 10:40 AM FRONT MAN Office Visit Department of Oncology in [address] [place] [phone] Flakito Desai M.B.B.S. [address] [place] [phone] 12/07/2023 11:00 AM FRONT MAN Infusion Department of Infusion Therapy in [address] [place] [phone] Flakito Desai M.B.B.S. [address] [place] [phone] 12/08/2023 10:30 AM FRONT MAN Infusion Department of Infusion Therapy in [address] [place] [address] Flakito Desai M.B.B.S. [address] [place] [phone] 12/09/2023 10:30 AM FRONT MAN Infusion Department of Infusion Therapy in [address] [place] [address] Flakito Desai M.B.B.S. [address] [place] [phone] documented as of this encounter Visit Diagnoses [...] Administer over 60 Minutes, Once, On Angela 05/07/23 at 0945, For 1 dose, HAZARDOUS - Handle with care. Solutions should be checked carefully for precipitation before and during administration. Discard if precipitation occurs. Ensure bag is DEHP-free. Administer with non-DEHP containing tubing. New Bag 05/07/2023 10:11 AM CDT 120 mg 554 mL/hr heparin flush 500 Units 500 Units, intra-catheter, As needed, line care, Starting on Angela 05/07/23 at 0927, When no infusion to maintain patency: For IVAD accessed, not in use, and/or prior to hospital discharge, flush every 7 days after 0.9% preservative-free NaCL flush. For IVAD NOT accessed or used, flush every 4 weeks after 0.9% preservative-free NaCL flush. Given 05/07/2023 11:19 AM CDT 500 Units NaCl 0.9% infusion 20 mL/hr, intravenous, Continuous Infusion: Per Instructions PRN, IV sock liner, Starting on Angela 05/07/23 at 0927, For 1 day New Bag 05/07/2023 9:45 AM CDT 20 mL/hr 20 mL/hr ondansetron (PF) injection 8 mg (ZOFRAN) 8 mg, intravenous, Once, On Angela 05/07/23 at 0945, For 1 dose Given 05/07/2023 9:51 AM CDT 8 mg sodium chloride 0.9 % injection 10 mL 10 mL, intra-catheter, As needed, line care, Starting on Angela 05/07/23 at 0927, When no infusion to maintain patency: For IVAD accessed and in use, flush every 12 hours. For IVAD accessed, not in use, and/or prior to hospital discharge, flush every 7 days followed by Heparin flush. For IVAD NOT accessed or used, flush every 4 weeks followed by Heparin flush. Given 05/07/2023 11:19 AM CDT 10 mL documented in this encounter Additional Health Concerns Infection Onset Date Last Indicated Resolved Time Protective Environment 04/15/2023 04/15/202306/30 6:36 AM CDT documented as of this encounter
--- OUTSIDE RECORDS SUMMARY | 2023-11-16 16:02 | XMS_ITS | Encounter Summary ---
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 [address] [place] [address] [facility] Region Referral ID Status Reason Start Date Expiration Date Visits Re quested Visits Authorized [id number] Closed 04/08/2023 04/07/2024 1 1 Encounter Details Date Type Department Care Team (Latest Contact Info) Description 05/04/2023 9:00 AM CDT Ancillary Procedure Department of Radiology, [facility], in [place], [place] [address] [facility] [facility] [place] [phone] Flakito Desai M.B.B.S. 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 [address] [place] [phone] 11/18/2023 10:00 AM ELECTRONIC FUNDS TRANSFER COORDINATOR Office Visit Department of Oncology in [address] [place] [phone] Flakito Desai M.B.B.S. [address] [place] [phone] 11/18/2023 10:30 AM ELECTRONIC FUNDS TRANSFER COORDINATOR Infusion Department of Infusion Therapy in [address] [place] [address] Flakito Desai M.B.B.S. [address] [place] [phone] 11/19/2023 10:30 AM ELECTRONIC FUNDS TRANSFER COORDINATOR Infusion Department of Infusion Therapy in [address] [place] [address] Flakito Desai M.B.B.S. [address] [place] [phone] 11/20/2023 10:30 AM ELECTRONIC FUNDS TRANSFER COORDINATOR Infusion Department of Infusion Therapy in [address] [place] [address] Flakito Desai M.B.B.S. [address] [place] [phone] 12/07/2023 9:30 AM ELECTRONIC FUNDS TRANSFER COORDINATOR Lab Department of Infusion Therapy in [address] [place] [address] Flakito Desai M.B.B.S. [address] [place] [phone] 12/07/2023 10:40 AM ELECTRONIC FUNDS TRANSFER COORDINATOR Office Visit Department of Oncology in [address] [place] [address] Flakito Desai M.B.B.S. [address] [place] [phone] 12/07/2023 11:00 AM ELECTRONIC FUNDS TRANSFER COORDINATOR Infusion Department of Infusion Therapy in [address] [place] [address] Flakito Desai M.B.B.S. [address] [place] [phone] 12/08/2023 10:30 AM ELECTRONIC FUNDS TRANSFER COORDINATOR Infusion Department of Infusion Therapy in [address] [place] [phone] Flakito Desai M.B.B.S. [address] [place] [phone] 12/09/2023 10:30 AM ELECTRONIC FUNDS TRANSFER COORDINATOR Infusion Department of Infusion Therapy in [address] [place] [address] Flakito Desai M.B.B.S. 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 ??Significantly improved FDG activity corresponding to the patient's known right-sided lung cancer, with complete resolution of FDG activity/size of previously noted mediastinal lymph nodes, excellent response to therapy. 2. ??Mild residual hypermetabolism involving a left adrenal nodule and a sclerotic focus in the right iliac bone. Attention to these areas on future scans is recommended. Narrative 05/04/2023 10:58 AM CDT EXAM: PET CT SKULL TO THIGH FDG COMPARISON: 03/13/2023 INDICATION: Small cell lung cancer. Subsequent treatment strategy. F-[address] scan was performed from the mid calvarium through the upper thighs with CT fusion imaging for attenuation correction, anatomic coregistration, and respiratory gating only. Serum glucose at time of F-18 FDG injection: 100 mg/dL. Uptake time: 64 minutes following injection. The patient reports no recent vaccinations. FINDINGS: Head/Neck: No suspicious hypermetabolic foci. Chest: There is a focus of faint residual FDG uptake within the anterior right upper lobe, image 80 of series 3/12, with a max SUV of 1.55 (compared to a max SUV of 4.71 on the study of 03/14/2023), corresponding to an 8 mm nodule. Max SUV of background mediastinal blood measures 2.17 for comparison. Previously described FDG avid mediastinal nodes have resolved in terms of FDG activity and size since the prior study. Abdomen/Pelvis: Minimal FDG uptake involving a 1.6 cm left adrenal mass, image 133, max SUV 2.47 compared to 2.68 on the prior exam. Attention to this area on future scans is recommended. No additional suspicious hypermetabolic foci. Skeleton: There is mild uptake involving the posterior right iliac bone, image 197 of series 3/12. This is in the area of a 1.6 cm sclerotic lesion and may represent treated metastatic disease. Multiple additional sclerotic lesions scattered throughout the pelvis and spine do not demonstrate abnormal FDG activity on the current exam. Other Findings: There is no cervical, axillary, mediastinal, retroperitoneal or pelvic lymphadenopathy on the current exam. There is mild stable cholelithiasis. The abdominal organs otherwise appear grossly unremarkable for a nonenhanced state. RADIOPHARMACEUTICAL/MEDS: Route: intravenous sodium chloride 0.9 % injection 10 mL,10 mL Route: intravenous fludeoxyglucose F 18 injection SHELTER (FDG F-18) , 16.313 millicurie Procedure Note Boni Bobby M.D. - 05/04/2023 EXAM: PET CT SKULL TO THIGH FDG COMPARISON: 03/13/2023 INDICATION: Small cell lung cancer. Subsequent treatment strategy. F-[address] scan was performed from the mid calvarium through theupper thighs with CT fusion imaging for attenuation correction, anatomic coregistration, andrespiratory gating only. Serum glucose at time of F-18 FDG injection: 100 mg/dL. Uptake time: 64 minutes following injection. The patient reports no recent vaccinations. FINDINGS: Head/Neck: No suspicious hypermetabolic foci. Chest: There is a focus of faint residual FDG uptake within the anteriorright upper lobe, image 80 of series 3/12, with a max SUV of 1.55 (compared to a max SUV of 4.71 onthe study of 03/14/2023), corresponding to an 8 mm nodule. Max SUV of background mediastinal bloodmeasures 2.17 for comparison. Previously described FDG avid mediastinal nodes have resolvedin terms of FDG activity and size since the prior study. Abdomen/Pelvis: Minimal FDG uptake involving a 1.6 cm left adrenal mass,image 133, max SUV 2.47 compared to 2.68 on the prior exam. Attention to this area on future scansis recommended. No additional suspicious hypermetabolic foci. Skeleton: There is mild uptake involving the posterior right iliac bone,image 197 of series 3/12. This is in the area of a 1.6 cm sclerotic lesion and may represent treatedmetastatic disease. Multiple additional sclerotic lesions scattered throughout the pelvis andspine do not demonstrate abnormal FDG activity on the current exam. Other Findings: There is no cervical, axillary, mediastinal,retroperitoneal or pelvic lymphadenopathy on the current exam. There is mild stable cholelithiasis.The abdominal organs otherwise appear grossly unremarkable for a nonenhanced state. RADIOPHARMACEUTICAL/MEDS: Route: intravenous sodium chloride 0.9 % injection 10 mL,10 mL Route: intravenous fludeoxyglucose F 18 injection SHELTER (FDG F-18) , 16.313 millicurie IMPRESSION: 1. Significantly improved FDG activity corresponding to the patient'sknown right-sided lung cancer, with complete resolution of FDG activity/size of previously notedmediastinal lymph nodes, excellent response to therapy. 2. Mild residual hypermetabolism involving a left adrenal nodule and asclerotic focus in the right iliac bone. Attention to these areas on future scans is recommended. 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) documented in this encounter Administered Medications Active Administered Medications - up to 3 most recent administrations Medication Order MAR Action Action Date Dose Rate Site sodium chloride 0.9 % injection 10 mL 10 mL, intravenous, As needed, line care, Starting on Thu05/04/23 at 0912, Imaging Protocol Orders Given 05/04/2023 8:52 AM CDT 10 mL Right Antecubital Inactive Administered Medications - up to 3 most recent administrations Medication Order MAR Action Action Date Dose Rate Site fludeoxyglucose F 18 injection SHELTER (FDG F-18) 16.313 millicurie, intravenous, Once, On Thu05/04/23 at 0900, For 1 dose, Imaging Protocol Orders Given 05/04/2023 8:52 AM CDT 16.313 millicuries Right Antecubital documented in this encounter Additional Health Concerns Infection Onset Date Last Indicated Resolved Time Protective Environment 04/15/2023 04/15/202306/30 6:36 AM CDT documented as of this encounter
--- OUTSIDE RECORDS SUMMARY | 2023-11-16 16:03 | XMS_ITS | Encounter Summary ---
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 [address] [place] [address] [facility] Region Referral ID Status Reason Start Date Expiration Date V isits Requested Visits Authorized [id number] Authorized 04/27/2023 03/31/2024 14 14 Encounter Details Date Type Department Care Team (Late st Contact Info) Description 04/17/2023 9:30 AM CDT Infusion Department of Infusion Therapy in [address] [place] [phone] Flakito Desai M.B.B.S. 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) (Primary Dx) Social History Tobacco Use Types Packs/Day Years Used Date Smoking Tobacco: Never Assessed Nutrition Answer Date Recorded Nutrition: EVOO Fat [...] Sign Reading Time Taken Comments Blood Pressure 128/75 04/17/2023 9:22 AM CDT Pulse 88 04/17/2023 9:22 AM CDT Temperature 36.6 ??C (97.9 ??F) 04/17/2023 9:22 AM CD T Respiratory Rate - - Oxygen Saturation 99% 04/17/2023 9:22 AM CDT Inhaled Oxygen Concentration - - Weight - - Height - - Body Mass Index - - documented in this encounter Plan of Treatment Upcoming Encounters Date Type Department Care Team (Late st Contact Info) Description 11/18/2023 9:00 AM BAROMETERS CALIBRATOR Lab Department of Infusion Therapy in [address] [place] [address] Flakito Desai M.B.B.S. [address] [place] [phone] 11/18/2023 10:00 AM BAROMETERS CALIBRATOR Office Visit Department of Oncology in [address] [place] [address] Flakito Desai M.B.B.S. [address] [place] [address] 11/18/2023 10:30 AM BAROMETERS CALIBRATOR Infusion Department of Infusion Therapy in [address] [place] [address] Flakito Desai M.B.B.S. [address] [place] [phone] 11/19/2023 10:30 AM BAROMETERS CALIBRATOR Infusion Department of Infusion Therapy in [address] [place] [address] Flakito Desai M.B.B.S. [address] [place] [phone] 11/20/2023 10:30 AM BAROMETERS CALIBRATOR Infusion Department of Infusion Therapy in [address] [place] [address] Flakito Desai M.B.B.S. [address] [place] [phone] 12/07/2023 9:30 AM BAROMETERS CALIBRATOR Lab Department of Infusion Therapy in [address] [place] [address] Flakito Desai M.B.B.S. [address] [place] [phone] 12/07/2023 10:40 AM BAROMETERS CALIBRATOR Office Visit Department of Oncology in [address] [place] [address] Flakito Desai M.B.B.S. [address] [place] [phone] 12/07/2023 11:00 AM BAROMETERS CALIBRATOR Infusion Department of Infusion Therapy in [address] [place] [address] Flakito Desai M.B.B.S. [address] [place] [phone] 12/08/2023 10:30 AM BAROMETERS CALIBRATOR Infusion Department of Infusion Therapy in [address] [place]ZIER, [place] [address] Flakito Desai M.B.B.S. [address] [place] [phone] 12/09/2023 10:30 AM BAROMETERS CALIBRATOR Infusion Department of Infusion Therapy in [address] [place] [address] Flakito Desai M.B.B.S. 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 2.08 m2 Order-specific BSA), intravenous, at 554 mL/hr, Administer over 60 Minutes, Once, On Thu04/17/23 at 0945, For 1 dose, HAZARDOUS - Handle with care. Solutions should be checked carefully for precipitation before and during administration. Discard if precipitation occurs. Ensure bag is DEHP-free. Administer with non-DEHP containing tubing. New Bag 04/17/2023 10:06 AM CDT 120 mg 554 mL/hr ondansetron (PF) injection 8 mg (ZOFRAN) 8 mg, intravenous, Once, On Thu04/17/23 at 0945, For 1 dose Given 04/17/2023 9:38 AM CDT 8 mg pegfilgrastim on-body injector 6 mg (NEULASTA ONPRO) 6 mg, subcutaneous, Once, On Thu04/17/23 at 0945, For 1 dose, I discussed options with patient: Did not discuss with patient Given 04/17/2023 10:55 AM CDT 6 mg Right Lower Abdomen documented in this encounter Additional Health Concerns Infection Onset Date Last Indicated Resolved Time Protective Environment 04/15/2023 04/15/202306/30 6:36 AM CDT documented as of this encounter
--- OUTSIDE RECORDS SUMMARY | 2023-11-16 16:03 | XMS_ITS | Encounter Summary ---
Author Name Unknown Organization [facility] Address [address] [place] [address] Care Team Providers Care Utilization Coordinator Name Role Phone Unavailable Primary Care Provider Unavailabl e Encounter Details Date Type Department Care Team (Late st Contact Info) Description 04/01/2023 Orders Only Department of Oncology in [place], [place] [address] [place] [phone] Flakito Desai M.B.B.S. [address] [place] [phone] Malignant Neoplasm Of Unspecified Part Of Lung [...] st Contact Info) Description 11/18/2023 9:00 AM EMT DISPATCHER Lab Department of Infusion Therapy in [address] [place] [phone] Flakito Desai M.B.B.S. [address] [place] [phone] 11/18/2023 10:00 AM EMT DISPATCHER Office Visit Department of Oncology in [address] [place] [phone] Flakito Desai M.B.B.S. [address] [place] [phone] 11/18/2023 10:30 AM EMT DISPATCHER Infusion Department of Infusion Therapy in [address] [place] [address] Flakito Desai M.B.B.S. [address] [place] [phone] 11/19/2023 10:30 AM EMT DISPATCHER Infusion Department of Infusion Therapy in [address] [place] [address] Flakito Desai M.B.B.S. [address] [place] [phone] 11/20/2023 10:30 AM EMT DISPATCHER Infusion Department of Infusion Therapy in [address] [place] [address] Flakito Desai M.B.B.S. [address] [place] [phone] 12/07/2023 9:30 AM EMT DISPATCHER Lab Department of Infusion Therapy in [address] [place] [address] Flakito Desai M.B.B.S. [address] [place] [phone] 12/07/2023 10:40 AM EMT DISPATCHER Office Visit Department of Oncology in [address] [place] [address] Flakito Desai M.B.B.S. [address] [place] [phone] 12/07/2023 11:00 AM EMT DISPATCHER Infusion Department of Infusion Therapy in [address] [place] [address] Flakito Desai M.B.B.S. [address] [place] [phone] 12/08/2023 10:30 AM EMT DISPATCHER Infusion Department of Infusion Therapy in [address] [place] [address] Flakito Desai M.B.B.S. [address] [place] [phone] 12/09/2023 10:30 AM EMT DISPATCHER Infusion Department of Infusion Therapy in [address] [place] [address] Flakito Desai M.B.B.S. 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
--- OUTSIDE RECORDS SUMMARY | 2023-11-16 16:03 | XMS_ITS | Encounter Summary ---
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 [address] [place] [address] [facility] Region Referral ID Status Reason Start Date Expiration Date V isits Requested Visits Authorized [id number] Authorized 04/27/2023 03/31/2024 14 14 Encounter Details Date Type Department Care Team (Late st Contact Info) Description 04/15/2023 9:30 AM CDT Infusion Department of Infusion Therapy in [address] [place] [phone] Flakito Desai M.B.B.S. [address] [place] [phone] Malignant Neoplasm Of Unspecified Part Of Lung [...] Sign Reading Time Taken Comments Blood Pressure 121/70 04/15/2023 12:34 PM CDT Pulse 84 04/15/2023 12:34 PM CDT Temperature 36.3 ??C (97.3 ??F) 04/15/2023 9:30 AM CD T Respiratory Rate - - Oxygen Saturation 99% 04/15/2023 9:30 AM CDT Inhaled Oxygen Concentration - - Weight - - Height - - Body Mass Index - - documented in this encounter Plan of Treatment Upcoming Encounters Date Type Department Care Team (Late st Contact Info) Description 11/18/2023 9:00 AM GAS ENGINE MECHANIC Lab Department of Infusion Therapy in [address] [place] [address] Flakito Desai M.B.B.S. [address] [place] [phone] 11/18/2023 10:00 AM GAS ENGINE MECHANIC Office Visit Department of Oncology in [address] [place] [address] Flakito Desai M.B.B.S. [address] [place] [address] 11/18/2023 10:30 AM GAS ENGINE MECHANIC Infusion Department of Infusion Therapy in [address] [place] [address] Flakito Desai M.B.B.S. [address] [place] [phone] 11/19/2023 10:30 AM GAS ENGINE MECHANIC Infusion Department of Infusion Therapy in [address] [place] [address] Flakito Desai M.B.B.S. [address] [place] [phone] 11/20/2023 10:30 AM GAS ENGINE MECHANIC Infusion Department of Infusion Therapy in [address] [place] [address] Flakito Desai M.B.B.S. [address] [place] [phone] 12/07/2023 9:30 AM GAS ENGINE MECHANIC Lab Department of Infusion Therapy in [address] [place] [address] Flakito Desai M.B.B.S. [address] [place] [phone] 12/07/2023 10:40 AM GAS ENGINE MECHANIC Office Visit Department of Oncology in [address] [place] [address] Flakito Desai M.B.B.S. [address] [place] [phone] 12/07/2023 11:00 AM GAS ENGINE MECHANIC Infusion Department of Infusion Therapy in [address] [place] [address] Flakito Desai M.B.B.S. [address] [place] [phone] 12/08/2023 10:30 AM GAS ENGINE MECHANIC Infusion Department of Infusion Therapy in [address] [place], [place] [address] Flakito Desai M.B.B.S. [address] [place] [address] 12/09/2023 10:30 AM GAS ENGINE MECHANIC Infusion Department of Infusion Therapy in [address] [place], [place] [address] Flakito Desai M.B.B.S. [address] [place] [phone] documented as of this encounter Visit Diagnoses [...] mL/hr, Administer over 30 Minutes, Once, On Thu04/15/23 at 0945, For 1 dose, If the first infusion is tolerated, all subsequent infusions may be delivered over 30 minutes. Do not administer as an intravenous push or bolus. Do not co-administer other drugs through the same intravenous line. Do NOT shake. New Bag 04/15/2023 12:24 PM CDT 1,200 mg 590 mL/hr CARBOplatin 500 mg in NaCl 0.9% 325 mL IVPB (PARAPLATIN) 500 mg (Target AUC = 5), intravenous, at 650 mL/hr, Administer over 30 Minutes, Once, On Thu04/15/23 at 1015, For 1 dose New Bag 04/15/2023 11:52 AM CDT 500 mg 650 mL/hr dexAMETHasone in NaCl 0.9% IVPB 12 mg (DECADRON) 12 mg, intravenous, at 200 mL/hr, Administer over 15 Minutes, Once, On Thu04/15/23 at 0945, For 1 dose, Refrigerate New Bag 04/15/2023 10:17 AM CDT 12 mg 200 mL/hr etoposide 120 mg in NaCl 0.9% (non-PVC) 554 mL IVPB (TOPOSAR) 120 mg (rounded from 124.8 mg = 60 mg/m2 ? 2.08 m2 Order-specific BSA), intravenous, at 554 mL/hr, Administer over 60 Minutes, Once, On Thu04/15/23 at 1045, For 1 dose, HAZARDOUS - Handle with care. Solutions should be checked carefully for precipitation before and during administration. Discard if precipitation occurs. Ensure bag is DEHP-free. Administer with non-DEHP containing tubing. New Bag 04/15/2023 10:49 AM CDT 120 mg 554 mL/hr famotidine injection 20 mg (PEPCID) 20 mg, intravenous, Once, On Thu04/15/23 at 0945, For 1 dose Given 04/15/2023 10:39 AM CDT 20 mg fosaprepitant in NaCl 0.9% IVPB 150 mg (EMEND) 150 mg, intravenous, at 500 mL/hr, Administer over 30 Minutes, Once, On Thu04/15/23 at 0945, For 1 dose, Incompatible with solutions containing divalent cations (calcium, magnesium) including lactated Ringer's solution. New Bag 04/15/2023 9:50 AM CDT 150 mg 500 mL/hr ondansetron in NaCl 0.9% IVPB 16 mg (ZOFRAN) 16 mg, intravenous, at 232 mL/hr, Administer over 15 Minutes, Once, On Thu04/15/23 at 0945, For 1 dose New Bag 04/15/2023 9:51 AM CDT 16 mg 232 mL/hr documented in this encounter Additional Health Concerns Infection Onset Date Last Indicated Resolved Time Protective Environment 04/15/2023 04/15/202306/30 6:36 AM CDT documented as of this encounter
--- OUTSIDE RECORDS SUMMARY | 2023-11-16 16:03 | XMS_ITS | Encounter Summary ---
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 [address] [place] [address] [facility] Region Referral ID Status Reason Start Date Expiration Date V isits Requested Visits Authorized [id number] Authorized 04/27/2023 03/31/2024 14 14 Encounter Details Date Type Department Care Team (Latest Contact Info) Description 04/07/2023 9:30 AM CDT - 04/07/2023 11:59 PM CDT Hospital Encounter Department of Laboratory Medicine in [address] [place] [phone] Flakito Desai M.B.B.S. [address] [place] [phone] Malignant Neoplasm Of Unspecified Part Of Lung [...] (two) times a day. 0 03/06/2023 06/04/2023 tamsulosin (FLOMAX) 0.4 mg 24 hr capsule Take 0.4 mg by mouth daily. Take 30 minutes after supper every day 0 03/26/2023 aspirin 81 mg chewable tablet Chew 81 mg daily. 0 05/27/2023 dilTIAZem (TIAZAC/TAZTIA XT) 240 mg ER capsule Take 240 mg by mouth daily. 0 09/04/2016 09/23/2023 LORazepam (ATIVAN) 0.5 mg tablet TAKE 1 TABLET BY MOUTH EVERY 8 HOURS NEEDED FOR NAUSEA/VOMITING/ANXIETY . IF INEFFECTIVE MAY REPEAT ONCE AFTER 30MINS. 0 04/07/2023 10/17/2023 polyethylene glycol (MIRALAX) 17 gram powder [...] 1 gram tablet Take 1 g by mouth 3 (three) times a day with meals. 2 with breakfast, 1 with lunch and 2 with supper 0 03/30/2023 04/16/2023 documented as of this encounter Plan of Treatment Upcoming Encounters Date Type Department Care Team (Late st Contact Info) Description 11/18/2023 9:00 AM CLASSER Lab Department of Infusion Therapy in [address] [place] [address] Flakito Desai, [place].B.B.S. [address] [place] [address] 11/18/2023 10:00 AM CLASSER Office Visit Department of Oncology in [address] [place] [address] Flakito Desai M.B.B.S. [address] [place] [phone] 11/18/2023 10:30 AM CLASSER Infusion Department of Infusion Therapy in [address] [place] [address] Flakito Desai M.B.B.S. [address] [place] [phone] 11/19/2023 10:30 AM CLASSER Infusion Department of Infusion Therapy in [address] [place] [address] Flakito Desai M.B.B.S. [address] [place] [phone] 11/20/2023 10:30 AM CLASSER Infusion Department of Infusion Therapy in [address] [place] [address] Flakito Desai M.B.B.S. [address] [place] [phone] 12/07/2023 9:30 AM CLASSER Lab Department of Infusion Therapy in [address] [place] [address] Flakito Desai M.B.B.S. [address] [place] [phone] 12/07/2023 10:40 AM CLASSER Office Visit Department of Oncology in [address] [place] [phone] Flakito Desai M.B.B.S. [address] [place] [phone] 12/07/2023 11:00 AM CLASSER Infusion Department of Infusion Therapy in [address] [place] [address] Flakito Desai M.B.B.S. [address] [place] [phone] 12/08/2023 10:30 AM CLASSER Infusion Department of Infusion Therapy in [address] [place], [place] [address] Flakito Desai M.B.B.S. [address] [place] [phone] 12/09/2023 10:30 AM CLASSER Infusion Department of Infusion Therapy in [address] [place] [address] Flakito Desai M.B.B.S. 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 LAB BLOOD ADD-ON Performing Organization Address City/[facility]/[place] [address] * Phosphorus Inorganic (04/07/2023 9:38 AM CDT) Phosphorus (Inorganic), P 3.2 2.5 - 4.5 mg/dL 04/07/2023 10:00 AM CDT [facility] Blood (Blood, Venous) 04/07/2023 9:38 AM CDT 04/07/2023 9:41 AM CDT Flakito PriceB.S. LAB BLOOD ADD-ON Performing Organization Address [facility] Co de Phone Number [id number] [place] [address] * Magnesium (04/07/2023 9:38 AM CDT) Magnesium, P 1.7 1.7 - 2.3 mg/dL 04/07/2023 10:00 AM CDT [facility] Blood (Blood, Venous) 04/07/2023 9:38 AM CDT 04/07/2023 9:41 AM CDT Flakito PriceB.S. LAB BLOOD ADD-ON Performing Organization Address City/[facility]/ZIP Co de Phone Number [place] [address] [place] [address] * (ABNORMAL) Comprehensive Metabolic Panel (04/07/2023 9:38 AM CDT) Potassium, P 4.4 3.6 - 5.2 mmol/L 04/07/2023 10:00 AM CDT [facility] Sodium, P 133(L) 135 - 145 mmol/L 04/07/2023 10:00 AM CDT [facility] Chloride, P 98 98 - 107 mmol/L 04/07/2023 10:00 AM CDT [facility] Bicarbonate, P 25 22 - 29 mmol/L 04/07/2023 10:00 AM CDT [facility] Anion Gap, P 10 7 - 15 04/07/2023 10:00 AM CDT [facility] BUN (Blood Urea Nitrogen), P 9 8 - 24 mg/dL 04/07/2023 10:00 AM CDT [facility] Creatinine 0.79 0.74 - 1.35 mg/dL 04/07/2023 10:00 AM CDT [facility] Estimated GFR (eGFR) >90 >=60 mL/min/BS A 04/07/2023 10:00 AM CDT [facility] Comment: Estimated GFR calculated using the 2020 CKD_EPI creatinine equation. Calcium, Total, P 9.1 8.8 - 10.2 mg/dL 04/07/2023 10:00 AM CDT [facility] Glucose, P 132 70 - 140 mg/dL 04/07/2023 10:00 AM CDT [facility] Protein, Total, P 6.4 6.3 - 7.9 g/dL 04/07/2023 10:00 AM CDT [facility] Albumin, P 3.8 3.5 - 5.0 g/dL 04/07/2023 10:00 AM CDT [facility] Aspartate Aminotransferase (AST), P 49(H) 8 - 48 U/L 04/07/2023 10:00 AM CDT [facility] Alkaline Phosphatase, P 342(H) 40 - 129 U/L 04/07/2023 10:00 AM CDT [facility] Alanine Aminotransferase (ALT), P 59(H) 7 - 55 U/L 04/07/2023 10:00 AM CDT [facility] Bilirubin, Total, P 0.7 <=1.2 mg/dL 04/07/2023 10:00 AM CDT [facility] Blood (Blood, Venous) 04/07/2023 9:38 AM CDT 04/07/2023 9:41 AM CDT Flakito Choi LAB BLOOD ADD-ON [facility]- [address] [address], [facility] FR[facility] in [address] [address] * (ABNORMAL) CBC with Differential, Blood (04/07/2023 9:38 AM CDT) Hemoglobin 12.8(L) 13.2 - 16.6 g/dL 04/07/2023 10:03 AM CDT [facility] Hematocrit 36.8(L) 38.3 - 48.6 % 04/07/2023 10:03 AM CDT [facility] Erythrocytes 3.71(L) 4.35 - 5.65 x10(12)/L 04/07/2023 10:03 AM CDT [facility] MCV 99.2(H) 78.2 - 97.9 fL 04/07/2023 10:03 AM CDT [facility] RBC Distrib Width 14.6(H) 11.8 - 14.5 % 04/07/2023 10:03 AM CDT [facility] Platelet Count 359(H) 135 - 317 x10(9)/L 04/07/2023 10:03 AM CDT [facility] Leukocytes 12.1(H) 3.4 - 9.6 x10(9)/L 04/07/2023 10:03 AM CDT [facility] Neutrophils 8.98(H) 1.56 - 6.45 x10(9)/L 04/07/2023 10:03 AM CDT [facility] Lymphocytes 1.58 0.95 - 3.07 x10(9)/L 04/07/2023 10:03 AM CDT [facility] Monocytes 1.45(H) 0.26 - 0.81 x10(9)/L 04/07/2023 10:03 AM CDT [facility] Eosinophils <0.03 0.03 - 0.48 x10(9)/L 04/07/2023 10:03 AM CDT [facility] Basophils 0.04 0.01 - 0.08 x10(9)/L 04/07/2023 10:03 AM CDT [facility] Blood (Blood, Venous) 04/07/2023 9:38 AM CDT 04/07/2023 9:41 AM CDT Flakito Choi LAB BLOOD ADD-ON [facility]- [address] FRMT [place] [address] documented in this encounter Visit Diagnoses Diagnosis 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
--- OUTSIDE RECORDS SUMMARY | 2023-11-16 16:03 | XMS_ITS | Encounter Summary ---
Author Name Unknown Organization [facility] Address [address] [place] [address] Care Team Providers Care Senior Information Developer Name Role Phone Unavailable Primary Care Provider Unavailabl e Reason for Visit * Reason Comments Med Refill Encounter Details Date Type Department Care Team (Late st Contact Info) Description 04/16/2023 Refill Department of Oncology in [place], [place] [address] [place] [address] Flakito Desai M.B.B.S. [address] [place] [phone] Med Refill Social History Tobacco Use Types [...] st Contact Info) Description 11/18/2023 9:00 AM BEHAVIORIST Lab Department of Infusion Therapy in [address] [place] [address] Flakito Desai M.B.B.S. [address] [place] [phone] 11/18/2023 10:00 AM BEHAVIORIST Office Visit Department of Oncology in [address] [place] [address] Flakito Desai M.B.B.S. [address] [place] [phone] 11/18/2023 10:30 AM BEHAVIORIST Infusion Department of Infusion Therapy in [address] [place] [address] Flakito Desai M.B.B.S. [address] [place] [phone] 11/19/2023 10:30 AM BEHAVIORIST Infusion Department of Infusion Therapy in [address] [place] [address] Flakito Desai M.B.B.S. [address] [place] [phone] 11/20/2023 10:30 AM BEHAVIORIST Infusion Department of Infusion Therapy in [address] [place] [address] Flakito Desai M.B.B.S. [address] [place] [phone] 12/07/2023 9:30 AM BEHAVIORIST Lab Department of Infusion Therapy in [address] [place] [address] Flakito Desai M.B.B.S. [address] [place] [phone] 12/07/2023 10:40 AM BEHAVIORIST Office Visit Department of Oncology in [address] [place] [address] Flakito Desai M.B.B.S. [facility] [place] [phone] 12/07/2023 11:00 AM BEHAVIORIST Infusion Department of Infusion Therapy in [address] [place] [address] Flakito Desai M.B.B.S. [address] [place] [phone] 12/08/2023 10:30 AM BEHAVIORIST Infusion Department of Infusion Therapy in [address] [place] [address] Flakito Desai M.B.B.S. [address] [place] [phone] 12/09/2023 10:30 AM BEHAVIORIST Infusion Department of Infusion Therapy in [address] [place] [address] Flakito Desai M.B.B.S. [address] [place] [phone] documented as of this encounter Visit Diagnoses Not on filedocumented in this encounter Additional Health Concerns Infection Onset Date Last Indicated Resolved Time Protective Environment 04/15/2023 04/15/202306/30 6:36 AM CDT documented as of this encounter
--- OUTSIDE RECORDS SUMMARY | 2023-11-16 16:03 | XMS_ITS | Encounter Summary ---
Author Name Unknown Organization [facility] Address [address] [place] [address] Care Team Providers Care Food Specialist Name Role Phone Unavailable Primary Care Provider Unavailabl e Encounter Details Date Type Department Care Team (Latest Contact Info) Description 04/20/2023 10:44 AM CDT - 04/20/2023 11:59 PM CDT Hospital Encounter Department of Laboratory Medicine in [address] [place] [address] Flakito Desai M.B.B.S. [address] [place] [phone] Malignant Neoplasm Of Unspecified Part Of Lung [...] st Contact Info) Description 11/18/2023 9:00 AM PHYSICAL EDUCATION PROFESSOR Lab Department of Infusion Therapy in [address] [place] [address] Flakito Desai, [place].B.B.S. [address] [place] [phone] 11/18/2023 10:00 AM PHYSICAL EDUCATION PROFESSOR Office Visit Department of Oncology in [address] [place] [phone] Flakito Desai M.B.B.S. [address] [place] [phone] 11/18/2023 10:30 AM PHYSICAL EDUCATION PROFESSOR Infusion Department of Infusion Therapy in [address] [place] [address] Flakito Desai M.B.B.S. [address] [place] [phone] 11/19/2023 10:30 AM PHYSICAL EDUCATION PROFESSOR Infusion Department of Infusion Therapy in [address] [place] [address] Flakito Desai M.B.B.S. [address] [place] [phone] 11/20/2023 10:30 AM PHYSICAL EDUCATION PROFESSOR Infusion Department of Infusion Therapy in [address] [place] [address] Flaikto Desai M.B.B.S. [address] [place] [phone] 12/07/2023 9:30 AM PHYSICAL EDUCATION PROFESSOR Lab Department of Infusion Therapy in [address] [place] [address] Flakito Desai M.B.B.S. [address] [place] [phone] 12/07/2023 10:40 AM PHYSICAL EDUCATION PROFESSOR Office Visit Department of Oncology in [address] [place] [address] Flakito Desai M.B.B.S. [address] [place] [phone] 12/07/2023 11:00 AM PHYSICAL EDUCATION PROFESSOR Infusion Department of Infusion Therapy in [address] [place] [address] Flakito Desai M.B.B.S. [address] [place] [phone] 12/08/2023 10:30 AM PHYSICAL EDUCATION PROFESSOR Infusion Department of Infusion Therapy in [address] [place] [address] Flakito Desai M.B.B.S. [address] [place] [phone] 12/09/2023 10:30 AM PHYSICAL EDUCATION PROFESSOR Infusion Department of Infusion Therapy in [address] [place], [place] [address] Flakito Desai M.B.B.S. 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 Results * (ABNORMAL) Comprehensive Metabolic Panel (04/20/2023 11:10 AM CDT) Potassium, P 4.2 3.6 - 5.2 mmol/L 04/20/2023 11:31 AM CDT FRMT Sodium, P 132(L) 135 - 145 mmol/L 04/20/2023 11:31 AM CDT FRMT Chloride, P 97(L) 98 - 107 mmol/L 04/20/2023 11:31 AM CDT FRMT Bicarbonate, P 26 22 - 29 mmol/L 04/20/2023 11:31 AM CDT FRMT Anion Gap, P 9 7 - 15 04/20/2023 11:31 AM CDT FRMT BUN (Blood Urea Nitrogen), P 20 8 - 24 mg/dL 04/20/2023 11:31 AM CDT FRMT Creatinine 0.76 0.74 - 1.35 mg/dL 04/20/2023 11:31 AM CDT FRMT Estimated GFR (eGFR) >90 >=60 mL/min/BS A 04/20/2023 11:31 AM CDT FRMT Comment: Estimated GFR calculated using the 2020 CKD_EPI creatinine equation. Calcium, Total, P 8.6(L) 8.8 - 10.2 mg/dL 04/20/2023 11:31 AM CDT FRMT Glucose, P 139 70 - 140 mg/dL 04/20/2023 11:31 AM CDT FRMT Protein, Total, P 5.5(L) 6.3 - 7.9 g/dL 04/20/2023 11:31 AM CDT FRMT Albumin, P 3.3(L) 3.5 - 5.0 g/dL 04/20/2023 11:31 AM CDT FRMT Aspartate Aminotransferase (AST), P 63(H) 8 - 48 U/L 04/20/2023 11:31 AM CDT FRMT Alkaline Phosphatase, P 219(H) 40 - 129 U/L 04/20/2023 11:31 AM CDT FRMT Alanine Aminotransferase (ALT), P 34 7 - 55 U/L 04/20/2023 11:31 AM CDT FRMT Bilirubin, Total, P 0.8 <=1.2 mg/dL 04/20/2023 11:31 AM CDT FRMT Blood (Blood, Venous) 04/20/2023 11:10 AM CDT 04/20/2023 11:13 AM CDT Flakito Choi LAB BLOOD ADD-ON [place] [address], [facility] [place] [address] * (ABNORMAL) Magnesium (04/20/2023 11:10 AM CDT) Magnesium, P 1.6(L) 1.7 - 2.3 mg/dL 04/20/2023 11:31 AM CDT FRMT Blood (Blood, Venous) 04/20/2023 11:10 AM CDT 04/20/2023 11:13 AM CDT Flakito Choi LAB BLOOD ADD-ON [place] [address], [facility] in [address] [address] documented in this encounter Visit Diagnoses Diagnosis 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
--- OUTSIDE RECORDS SUMMARY | 2023-11-16 16:03 | XMS_ITS | Encounter Summary ---
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 [address] [place] [address] [facility] Region Referral ID Status Reason Start Date Expiration Date V isits Requested Visits Authorized [id number] Authorized 04/27/2023 03/31/2024 14 14 Encounter Details Date Type Department Care Team (Latest Contact Info) Description 04/15/2023 8:09 AM CDT - 04/15/2023 11:59 PM CDT Hospital Encounter Department of Laboratory Medicine in [address] [place] [address] Flakito Desai M.B.B.S. [address] [place] [phone] Malignant Neoplasm Of Unspecified Part Of Lung [...] and 2 with supper 0 03/30/2023 04/16/2023 triamcinolone (KENALOG) 0.1 % dental paste Apply 1 Application to the mouth or throat 3 (three) times a day. 5 g 12 04/08/2023 10/17/2023 documented as of this encounter Plan of Treatment Upcoming Encounters Date Type Department Care Team (Late st Contact Info) Description 11/18/2023 9:00 AM QA ANALYST Lab Department of Infusion Therapy in [address] [place] [address] Flakito Desai M.B.B.S. [address] [place] [address] 11/18/2023 10:00 AM QA ANALYST Office Visit Department of Oncology in [address] [place] [address] Flakito Desai M.B.B.S. [address] [place] [phone] 11/18/2023 10:30 AM QA ANALYST Infusion Department of Infusion Therapy in [address] [place] [address] Flakito Desai M.B.B.S. [address] [place] [phone] 11/19/2023 10:30 AM QA ANALYST Infusion Department of Infusion Therapy in [address] [place] [address] Flakito Desai M.B.B.S. [address] [place] [phone] 11/20/2023 10:30 AM QA ANALYST Infusion Department of Infusion Therapy in [address] [place] [address] Flaktio Desai M.B.B.S. [address] [place] [phone] 12/07/2023 9:30 AM QA ANALYST Lab Department of Infusion Therapy in [address] [place] [address] Flakito Desai M.B.B.S. [address] [place] [phone] 12/07/2023 10:40 AM QA ANALYST Office Visit Department of Oncology in [address] [place] [address] Flakito Desai M.B.B.S. [address] [place] [phone] 12/07/2023 11:00 AM QA ANALYST Infusion Department of Infusion Therapy in [address] [place], [place] [address] Flakito Desai M.Antonietta.B.S. [address] [place] [phone] 12/08/2023 10:30 AM QA ANALYST Infusion Department of Infusion Therapy in [address] [place], [place] [address] Flakito Desai M.B.B.S. [address] [place] [phone] 12/09/2023 10:30 AM QA ANALYST Infusion Department of Infusion Therapy in [address] [place], [place] [address] Flakito Desai M.B.B.S. 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 [address] * Phosphorus Inorganic (04/15/2023 8:43 AM CDT) [facility] Phosphorus (Inorganic), P 3.5 2.5 - 4.5 mg/dL 04/15/2023 9:06 AM CDT [facility] Blood (Blood, Venous) 04/15/2023 8:43 AM CDT 04/15/2023 8:47 AM CDT Flakito PriceBKeishaS. [place] [address], [place] [address] * (ABNORMAL) Magnesium (04/15/2023 8:43 AM CDT) Magnesium, P 1.6(L) 1.7 - 2.3 mg/dL 04/15/2023 9:06 AM CDT [facility] Blood (Blood, Venous) 04/15/2023 8:43 AM CDT 04/15/2023 8:47 AM CDT Flakito Choi LAB BLOOD ADD-ON [facility]- [address] [address], [facility] FRMT [facility] in [address] [address] * (ABNORMAL) Comprehensive Metabolic Panel (04/15/2023 8:43 AM CDT) Potassium, P 4.1 3.6 - 5.2 mmol/L 04/15/2023 9:06 AM CDT FRMT Sodium, P 133(L) 135 - 145 mmol/L 04/15/2023 9:06 AM CDT FRMT Chloride, P 97(L) 98 - 107 mmol/L 04/15/2023 9:06 AM CDT FRMT Bicarbonate, P 25 22 - 29 mmol/L 04/15/2023 9:06 AM CDT FRMT Anion Gap, P 11 7 - 15 04/15/2023 9:06 AM CDT FRMT BUN (Blood Urea Nitrogen), P 12 8 - 24 mg/dL 04/15/2023 9:06 AM CDT FRMT Creatinine 0.74 0.74 - 1.35 mg/dL 04/15/2023 9:06 AM CDT FRMT Estimated GFR (eGFR) >90 >=60 mL/min/BS A 04/15/2023 9:06 AM CDT FRMT Comment: Estimated GFR calculated using the 2020 CKD_EPI creatinine equation. Calcium, Total, P 9.1 8.8 - 10.2 mg/dL 04/15/2023 9:06 AM CDT FRMT Glucose, P 95 70 - 140 mg/dL 04/15/2023 9:06 AM CDT FRMT Protein, Total, P 5.9(L) 6.3 - 7.9 g/dL 04/15/2023 9:06 AM CDT FRMT Albumin, P 3.5 3.5 - 5.0 g/dL 04/15/2023 9:06 AM CDT FRMT Aspartate Aminotransferase (AST), P 49(H) 8 - 48 U/L 04/15/2023 9:06 AM CDT FRMT Alkaline Phosphatase, P 256(H) 40 - 129 U/L 04/15/2023 9:06 AM CDT FRMT Alanine Aminotransferase (ALT), P 44 7 - 55 U/L 04/15/2023 9:06 AM CDT FRMT Bilirubin, Total, P 0.6 <=1.2 mg/dL 04/15/2023 9:06 AM CDT FRMT Blood (Blood, Venous) 04/15/2023 8:43 AM CDT 04/15/2023 8:47 AM CDT Flakito Choi LAB BLOOD ADD-ON [facility] [place] [address], [facility] FRMT [facility] [place] [address] * (ABNORMAL) CBC with Differential, Blood (04/15/2023 8:42 AM CDT) Hemoglobin 11.9(L) 13.2 - 16.6 g/dL 04/15/2023 8:49 AM CDT FRMT Hematocrit 34.5(L) 38.3 - 48.6 % 04/15/2023 8:49 AM CDT FRMT Erythrocytes 3.46(L) 4.35 - 5.65 x10(12)/L 04/15/2023 8:49 AM CDT FRMT MCV 99.7(H) 78.2 - 97.9 fL 04/15/2023 8:49 AM CDT FRMT RBC Distrib Width 15.4(H) 11.8 - 14.5 % 04/15/2023 8:49 AM CDT FRMT Platelet Count 331(H) 135 - 317 x10(9)/L 04/15/2023 8:49 AM CDT FRMT Leukocytes 9.9(H) 3.4 - 9.6 x10(9)/L 04/15/2023 8:49 AM CDT FRMT Neutrophils 7.14(H) 1.56 - 6.45 x10(9)/L 04/15/2023 8:49 AM CDT FRMT Lymphocytes 1.39 0.95 - 3.07 x10(9)/L 04/15/2023 8:49 AM CDT FRMT Monocytes 1.31(H) 0.26 - 0.81 x10(9)/L 04/15/2023 8:49 AM CDT FRMT Eosinophils <0.03 0.03 - 0.48 x10(9)/L 04/15/2023 8:49 AM CDT FRMT Basophils 0.09(H) 0.01 - 0.08 x10(9)/L 04/15/2023 8:49 AM CDT FRMT Blood (Blood, Venous) 04/15/2023 8:42 AM CDT 04/15/2023 8:47 AM CDT Flakito Choi LAB BLOOD ADD-ON [facility] [place] [address], [facility] FRMT [facility] [place] [address] documented in this encounter Visit Diagnoses Diagnosis 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
--- OUTSIDE RECORDS SUMMARY | 2023-11-16 16:03 | XMS_ITS | Encounter Summary ---
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 [address] [place] [address] [facility] Region Referral ID Status Reason Start Date Expiration Date V isits Requested Visits Authorized [id number] Authorized 04/27/2023 03/31/2024 14 14 Encounter Details Date Type Department Care Team (Late st Contact Info) Description 04/16/2023 9:30 AM CDT Infusion Department of Infusion Therapy in [address] [place] [phone] Flakito Desai M.B.B.S. [address] [place] [phone] Malignant Neoplasm Of Unspecified Part Of Lung [...] Sign Reading Time Taken Comments Blood Pressure 115/69 04/16/2023 9:28 AM CDT Pulse 99 04/16/2023 9:28 AM CDT Temperature 36.8 ??C (98.2 ??F) 04/16/2023 9:28 AM CD T Respiratory Rate - - Oxygen Saturation 98% 04/16/2023 9:28 AM CDT Inhaled Oxygen Concentration - - Weight - - Height - - Body Mass Index - - documented in this encounter Plan of Treatment Upcoming Encounters Date Type Department Care Team (Late st Contact Info) Description 11/18/2023 9:00 AM JOINT SETTER Lab Department of Infusion Therapy in [address] [place] [address] Flakito Desai M.B.B.S. [address] [place] [phone] 11/18/2023 10:00 AM JOINT SETTER Office Visit Department of Oncology in [address] [place] [address] Flakito Desai M.B.B.S. [address] [place] [phone] 11/18/2023 10:30 AM JOINT SETTER Infusion Department of Infusion Therapy in [address] [place] [address] Flakito Desai M.B.B.S. [address] [place] [phone] 11/19/2023 10:30 AM JOINT SETTER Infusion Department of Infusion Therapy in [address] [place] [address] Flakito Desai M.B.B.S. [address] [place] [phone] 11/20/2023 10:30 AM JOINT SETTER Infusion Department of Infusion Therapy in [address] [place] [address] Flakito Desai M.B.B.S. [address] [place] [phone] 12/07/2023 9:30 AM JOINT SETTER Lab Department of Infusion Therapy in [address] [place] [address] Flakito Desai M.B.B.S. [address] [place] [phone] 12/07/2023 10:40 AM JOINT SETTER Office Visit Department of Oncology in [address] [place] [address] Flakito Desai M.B.B.S. [address] [place] [phone] 12/07/2023 11:00 AM JOINT SETTER Infusion Department of Infusion Therapy in [address] [place] [address] Flakito Desai M.B.B.S. [address] [place] [phone] 12/08/2023 10:30 AM JOINT SETTER Infusion Department of Infusion Therapy in [address] [place], [place] [address] Flakito Desai M.B.B.S. [address] [place] [phone] 12/09/2023 10:30 AM JOINT SETTER Infusion Department of Infusion Therapy in [address] [place], [place] [address] Flakito Desai M.B.B.S. [facility] [place] [phone] documented as of this encounter Visit Diagnoses [...] Administer over 60 Minutes, Once, On Angela 04/16/23 at 0945, For 1 dose, HAZARDOUS - Handle with care. Solutions should be checked carefully for precipitation before and during administration. Discard if precipitation occurs. Ensure bag is DEHP-free. Administer with non-DEHP containing tubing. New Bag 04/16/2023 10:30 AM CDT 120 mg 554 mL/hr NaCl 0.9% infusion 20 mL/hr, intravenous, Continuous Infusion: Per Instructions PRN, IV fryline attendant, Starting on Angela 04/16/23 at 0923, For 1 day New Bag 04/16/2023 10:30 AM CDT 20 mL/hr 20 mL/hr ondansetron (PF) injection 8 mg (ZOFRAN) 8 mg, intravenous, Once, On Angela 04/16/23 at 0945, For 1 dose Given 04/16/2023 9:42 AM CDT 8 mg documented in this encounter Additional Health Concerns Infection Onset Date Last Indicated Resolved Time Protective Environment 04/15/2023 04/15/202306/30 6:36 AM CDT documented as of this encounter
--- OUTSIDE RECORDS SUMMARY | 2023-11-16 16:03 | XMS_ITS | Encounter Summary ---
Author Name Unknown Organization [facility] Address [address] [place] [address] Care Team Providers Care Metal Buildings Assembler Name Role Phone Unavailable Primary Care Provider Unavailabl e Reason for Referral * Outpatient (Routine) Specialty Diagnoses / Procedures Referred By Contac t Referred To Contact Oncology Flakito Desai M.B.B.S. [address] [place] [phone] [facility] Region Referral ID Status Reason Start Date Expiration Date Visits Re quested Visits Authorized * Outpatient (Routine) Specialty Diagnoses / Procedures Referred By Contac t Referred To Contact Oncology Flakito Desai M.B.B.S. [address] [place] [phone] [facility] Referral ID Status Reason Start Date Expiration Date Visits Re quested Visits Authorized * Outpatient (Routine) - Closed Specialty Diagnoses / Procedures Referred By Contac t Referred To Contact Radiology Diagnoses 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) Procedures IR Implanted Vascular Access Device Placement Flakito Desai M.B.B.S. [address] [place] [phone] [facility] Referral ID Status Reason Start Date Expiration Date Visits Re quested Visits Authorized [id number] Closed 04/08/2023 04/07/2024 1 1 * Outpatient (Routine) Specialty Diagnoses / Procedures Referred By Molina valdes Referred To Contact Oncology Flakito Desai M.B.B.S. 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 [address] [place] [phone] [facility] Referral ID Status Reason Start Date Expiration Date V isits Requested Visits Authorized [id number] Authorized 04/27/2023 03/31/2024 14 14 Encounter Details Date Type Department Care Team (Latest Contact Info) Description 04/08/2023 9:00 AM CDT Comprehensive Visit Department of Oncology in [address] [place] [address] Flakito Desai M.B.B.S. [address] [place] [phone] 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) (Primary Dx); Mucositis Social History Tobacco Use Types Packs/Day Years [...] Sign Reading Time Taken Comments Blood Pressure 117/76 04/08/2023 8:57 AM CDT Pulse 96 04/08/2023 8:57 AM CDT Temperature 36.2 ??C (97.2 ??F) 04/08/2023 8:57 AM CD T Respiratory Rate - - Oxygen Saturation 98% 04/08/2023 8:57 AM CDT Inhaled Oxygen Concentration - - Weight 86.1 kg (189 lb 13.1 oz) 04/08/2023 8:57 AM CDT Height 179 cm (5' 10.47) 04/08/2023 8:57 AM CDT Body Mass Index 26.87 04/08/2023 8:57 AM CDT documented in this encounter Consult Notes * Flakito Desai M.B.BKeishaS. - 04/08/2023 9:00 AM CDT Images from the original note were not included. [facility] HEMATOLOGY/ONCOLOGY VISIT [facility] Provider Flakito Desai Reason for visit: Metastatic small-cell carcinoma Oncology History Overview Note 02/26/23 [place]: admitted to hospital for weakness, fatigue [...] Critical Imaging ED workup for Confusion at [place] 03/23/23 Xray Chest: The pericardial and [...] Start Date: 04/01/2023 Interim history Presents today with his supportive Bunny and supportive daughter Paula. Doing well today. He hada UTI after 1st cycle of treatment, and spent 3 days in hospital. However he has had recurrent UTIsin the past and thought unrelated to chemotherapy. He also had mucositis of the outer lip since starting chemotherapy. He has been using topical triamcinolone which helps. He does not have any mucositis in the oral cavity. He does have some memory impairment. No other side effects from treatment. Appetite good, no pain, good energy levels. No nausea, no vomiting, no diarrhea. He does not have any history of autoimmune conditions or transplant. He has tooth extraction scheduled today. Prior to the onset of his illness he was well. Able to driving, gardening. Previously did not need assist device for ambulation, He is using a walker for ambulation at this time, mainly for extra support. No other symptoms or concerns today. REVIEW [...] spray Administer 2 sprays into nostril(s) daily. ondansetron (ZOFRAN) 8 mg tablet Take 8 mg by mouth every 8 (eight) hours as needed for nausea. polyethylene glycol (MIRALAX) 17 gram powder packet Take 17 g by mouth daily as needed for constipation. Dissolve each 17 g dose in 240 mLs (8 ounces) of beverage. potassium chloride (KLORCON/K-TAB) 10 mEq ER tablet Take 10 mEq by mouth 2 (two) times a day. prochlorperazine (COMPAZINE) 10 mg tablet Take 1 tablet by mouth every 6 (six) hours as needed for nausea. sodium chloride 1 gram tablet Take 1 g by mouth 3 (three) times a day with meals. 2 with breakfast,1 with lunch and 2 with supper tamsulosin (FLOMAX) 0.4 mg 24 hr capsule Take 0.4 mg by mouth daily. Take 30 minutes after supper every day tiotropium (Spiriva Respimat) 2.5 mcg/actuation inhaler Inhale 2 puffs daily. aspirin 81 mg chewable tablet Chew 81 mg daily. mupirocin (BACTROBAN) 2 % ointment Apply 1 Application topically 3 (three) times a day. Apply to outer lip. triamcinolone (KENALOG) 0.1 % dental paste Apply 1 Application to the mouth or throat 3 (three) times a day. No past medical history on file. No past surgical history on file. No family history on file. OBJECTIVE ECOG Score: 2 Vitals: 04/08/23 0857 BP: 117/76 Pulse: 96 Temp: 36.2 ??C SpO2: 98% Wt Readings from Last 3 Encounters: 04/08/23 86.1 kg Vitals and nursing note [...] Content: Thought content normal. Judgment: Judgment normal. Grade 1 mucositis of outer lip. LABORATORY DATA No results found for this or any previous visit (from the past 24 hour(s)). RADIOLOGICAL DATA Radiology data reviewed. 03/05/2023 liver [...] is recommended. 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 MRI brain 03/13/2023 did not show metastatic disease. It was uncertain the origin of his small-cell cancer, approach at [place] was for extrapulmonary small-cell with carboplatin etoposide. With the presence of hypermetabolic activity in the hilar and mediastinal region, raises the possibility of lung origin. Dose of etoposide reduced by 50% due to liver function and tolerability. As we suspect likely lung origin. Would be reasonable to add immunotherapy to current regimen. Repeat PET scan prior to next cycle. Will expect LFTs improve with continued treatment. No history of autoimmune conditions or organ transplant. At today's visit we discussed his clinical information in detail. We reviewed the diagnosis, stage of disease, natural course of the disease, treatment options. We reviewed the indications, benefits,side effects (of the treatment regimen as listed on Micromedex including the less common and more common side effects. We discussed ways we will monitor and manage side effects including the use of steroids if needed. Patient consents to proceed with treatment. Discussed pros and cons of chemo port. Including risk of blood clots. Patient agreeable for chemo port. As he tolerated cycle 1 well without any major problems. We will increase the dose of etoposide by 10%. His dose of etoposide was 480 mg for a AUC of 5 in cycle 1. Our dose rounds up to 593 mg for AUC 5. As we are increasing etoposide and adding immunotherapy, will use a dose of 500 mg carboplatin for this cycle as he tolerated the 480 mg well. -continue treatment per protocol -add atezolizumab -PET scan prior to next cycle -plan to complete 4 cycles followed by maintenance atezolizumab -weekly hydration -weekly CMP, magnesium Regimen Carboplatin AUC 5 (using 500 mg) , Etoposide 60 mg per m2 D1, D2, D3 (60% original dose), Atezolizumab 1200 mg D1 every 21 days, followed by atezolizumab 1680 mg every 28 days Neulasta Onpro D3 Weekly hydration in between cycles Mucositis -continue topical triamcinolone 0.1% 3 times daily as needed -add topical mupirocin to the outer lip 3 times daily Other problems Cirrhosis SIADH Aneurysm of ascending aorta History of CVA 2012 without residual deficits Hypertension Gout -follow up with PCP Follow up: As above Patient was encouraged to keep us informed in case has any side effects from therapy, so that we could help alleviate symptoms. Patient was encouraged to keep us informed in case develops any new symptomatology in the intervening period. PATIENT EDUCATION We discussed the diagnosis, stage of disease, prognosis. We discussed the indication, benefits, side effects (as noted on Micromedex), schedule of the treatment plan, alternative treatment options. We reviewed ways to monitor, prevent, control and manage toxicities. We discussed the above in detail with the patient, ready to learn, no apparent learning barriers were identified; learning preferences include listening. Patient expressed understanding of the content, and was able to teach back. Patient in agreement and consents to move forward with the above plan. They will contact us if any questions or concerns prior to next appointment. Glenny BlackburnS. 9:46 AM CDT 04/08/23 I personally spent 60 minutes in care of the patient today. This time includes both face to face and non-face to face time. CONTACT INFORMATION To contact your medical team, please utilize your [facility] Patient Portal or call our care team: #1 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) - Oncology office visit (clinic) General; Lung; Future; Expected date: 04/15/2023 - Infusion Appointment Request; Future; Expected date: 04/15/2023 - CBC with Differential, Blood; Future; Expected date: 04/08/2023 - Comprehensive Metabolic Panel; Future; Expected date: 04/08/2023 - Magnesium; Future; Expected date: 04/08/2023 - Phosphorus Inorganic; Future; Expected date: 04/08/2023 - Thyroid Function [place]; Future; Expected date: 04/08/2023 - Infusion Appointment Request; Future; Expected date: 04/16/2023 - Infusion Appointment Request; Future; Expected date: 04/17/2023 - CBC with Differential, Blood; Future; Expected date: 04/15/2023 - Comprehensive Metabolic Panel; Future; Expected date: 04/15/2023 - Magnesium; Future; Expected date: 04/15/2023 - Phosphorus Inorganic; Future; Expected date: 04/15/2023 - Thyroid Function [place]; Future; Expected date: 04/15/2023 - IR Implanted Vascular Access Device Placement; Future; Expected date: 04/08/2023 - PET CT Skull to Thigh FDG; Future; Expected date: 04/08/2023 - Magnesium; Standing - Comprehensive Metabolic Panel; Standing - Oncology office visit (clinic) General; Lung #2 Mucositis Other orders - NaCl 0.9% infusion; 20 mL/hr, intravenous, Continuous Infusion: Per Instructions PRN, IV journey lineman, Starting on Thu04/15/23, For 1 day - famotidine injection 20 [...] greater than 38 degrees Celsius, Starting on Thu04/15/23, For 4 doses - diphenhydrAMINE injection 25 mg (BENADRYL); 25 mg, intravenous, Every 4 hours PRN, infusion related reactions. May repeat once if symptoms not relieved within 15 minutes of initial dose., Starting on Thu04/15/23 - meperidine (PF) injection 25 mg (DEMEROL); 25 mg, intravenous, Every 15 min PRN, Rigors. May repeat once (maximum total dose 50 mg)., Starting on Thu04/15/23, For 2 dosesRestriction Criteria (Pharmacy will review and approve if criteria met): Prevention or treatment of drug-induced or [id number] rigors - prochlorperazine injection 10 mg (COMPAZINE); 10 mg, intravenous, Every 6 hours PRN, nausea, vomiting, Starting on Thu04/15/23Prochlorperazine should be used first for break-through nausea/vomiting. - ondansetron (PF) injection 8 mg (ZOFRAN); 8 mg, intravenous, Every 8 hours PRN, nausea, vomiting,Starting on Thu04/15/23If nausea/vomiting is unrelieved by prochlorperazine, give ondansetron. - LORazepam injection 0.5 mg (ATIVAN); 0.5 mg, intravenous, Every 8 hours PRN, nausea, vomiting, Starting on Thu04/15/23, For 24 hoursIf nausea/vomiting is unrelieved by prochlorperazine or ondansetron or if the patient is having anxiety symptoms, give lorazepam. If ineffective, may repeat once after 30 minutes. Shortage on injection, use oral when possible For intravenous use, dilute with equal volume of 0.9% NS - NaCl 0.9% infusion; 20 mL/hr, intravenous, Continuous Infusion: Per Instructions PRN, IV journey lineman, Starting on Angela 04/16/23, For 1 day - ondansetron (PF) injection 8 mg (ZOFRAN); 8 mg, intravenous, Once, For 1 dose - prochlorperazine injection 10 mg (COMPAZINE); 10 mg, intravenous, Every 6 hours PRN, nausea, vomiting, Starting on Thu04/16/23Prochlorperazine should be used first for break-through nausea/vomiting. - ondansetron (PF) injection 8 mg (ZOFRAN); 8 mg, intravenous, Every 8 hours PRN, nausea, vomiting,Starting on Thu04/16/23If nausea/vomiting is unrelieved by prochlorperazine, give ondansetron. - NaCl 0.9% infusion; 20 mL/hr, intravenous, Continuous Infusion: Per Instructions PRN, IV journey lineman, Starting on Thu04/17/23, For 1 day - ondansetron (PF) injection 8 mg (ZOFRAN); 8 mg, intravenous, Once, For 1 dose - pegfilgrastim on-body injector 6 mg (NEULASTA ONPRO); 6 mg, subcutaneous, Once, For 1 doseI discussed options with patient: Did not discuss with patient - prochlorperazine injection 10 mg (COMPAZINE); 10 mg, intravenous, Every 6 hours PRN, nausea, vomiting, Starting on Thu04/17/23Prochlorperazine should be used first for break-through nausea/vomiting. - ondansetron (PF) injection 8 mg (ZOFRAN); 8 mg, intravenous, Every 8 hours PRN, nausea, vomiting,Starting on Thu04/17/23If nausea/vomiting is unrelieved by prochlorperazine, give ondansetron. [...] DEHP-free. Administer with non-DEHP containing tubing. - mupirocin (BACTROBAN) 2 % ointment; Apply 1 Application topically 3 (three) times a day. Apply toouter lip., Starting Thu04/08/2023, Normal - triamcinolone (KENALOG) 0.1 % dental paste; Apply 1 Application to the mouth or throat 3 (three) times a day., Starting Thu04/08/2023, Normal - CARBOplatin 500 mg in NaCl 0.9% 300 mL IVPB (PARAPLATIN); 500 mg (Target AUC = 5), intravenous, at 600 mL/hr, Administer over 30 Minutes, Once, For 1 dose documented in this encounter Miscellaneous Notes * Addendum Note - Laisha Mandujano R.N., O.C.N. - 04/08/2023 9:00 AM CDTAddended by: LAISHA MANDUJANO on: 04/08/2023 11:35 AM Modules accepted: Orders * Addendum Note - Laisha Mandujano R.N., O.C.N. - 04/08/2023 9:00 AM CDTAddended by: LAISHA MANDUJANO on: 04/08/2023 01:47 PM Modules accepted: Orders * Addendum Note - Laisha Mandujano R.N., O.C.N. - 04/08/2023 9:00 AM CDTAddended by: LAISHA MANDUJANO on: 04/08/2023 05:15 PM Modules accepted: Orders documented in this encounter Plan of Treatment Upcoming Encounters Date Type Department Care Team (Late st Contact Info) Description 11/18/2023 9:00 AM CHIEF ENGINEER RESEARCH Lab Department of Infusion Therapy in [address] [place] [address] Flakito Desai M.B.B.S. [address] [place] [phone] 11/18/2023 10:00 AM CHIEF ENGINEER RESEARCH Office Visit Department of Oncology in [address] [place] [address] Flakito Desai M.B.B.S. [address] [place] [phone] 11/18/2023 10:30 AM CHIEF ENGINEER RESEARCH Infusion Department of Infusion Therapy in [address] [place] [address] Flakito Desai M.B.B.S. [address] [place] [phone] 11/19/2023 10:30 AM CHIEF ENGINEER RESEARCH Infusion Department of Infusion Therapy in [address] [place] [address] Flakito Desai M.B.B.S. [address] [place] [phone] 11/20/2023 10:30 AM CHIEF ENGINEER RESEARCH Infusion Department of Infusion Therapy in [address] [place] [address] Flakito Desai M.B.B.S. [address] [place] [phone] 12/07/2023 9:30 AM CHIEF ENGINEER RESEARCH Lab Department of Infusion Therapy in [address] [place] [address] Flakito Desai M.B.B.S. [address] [place] [phone] 12/07/2023 10:40 AM CHIEF ENGINEER RESEARCH Office Visit Department of Oncology in [address] [place] [phone] Flakito Desai M.B.B.S. [address] [place] [phone] 12/07/2023 11:00 AM CHIEF ENGINEER RESEARCH Infusion Department of Infusion Therapy in [address] [place] [address] Flakito Desai M.B.B.S. [address] [place] [phone] 12/08/2023 10:30 AM CHIEF ENGINEER RESEARCH Infusion Department of Infusion Therapy in [address] [place] [address] Flakito Desai M.B.B.S. [address] [place] [phone] 12/09/2023 10:30 AM CHIEF ENGINEER RESEARCH Infusion Department of Infusion Therapy in [address] [place], [place] [address] Flakito Desai M.B.B.S. [address] [place] [phone] Scheduled Referrals Name Type Priority Associated Diagnoses Orde r Schedule Oncology office visit (clinic) General; Lung Outpatient Referral Routine 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) Expected: 04/15/2023, Expires: 04/15/2024 Oncology office visit (clinic) General; Lung Outpatient Referral Routine 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) Expected: 05/27/2023, Expires: 05/27/2024 Oncology office visit (clinic) General; Lung Outpatient Referral Routine 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) Expected: 05/06/2023, Expires: 05/06/2024 documented as of this encounter Results * Thyroid Function [place] (05/27/2023 10:08 AM CDT) [facility] TSH, Sensitive 1.0 0.3 - 4.2 mIU/L 05/27/2023 11:01 AM CDT [facility] Blood (Blood, Venous) 05/27/2023 10:08 AM CDT 05/27/2023 10:12 AM CDT Flkaito PriceB.S. LAB BLOOD ADD-ON [facility] [address] [place] [phone], [place] [facility] in [address] [address] * Phosphorus Inorganic (05/27/2023 10:08 AM CDT) Pathologist [facility] Phosphorus (Inorganic), P 3.6 2.5 - 4.5 mg/dL 05/27/2023 10:34 AM CDT [facility] Blood (Blood, Venous) 05/27/2023 10:08 AM CDT 05/27/2023 10:12 AM CDT Flakito MurrietaSKeisha LAB BLOOD ADD-ON Performing Organization Address City/[facility]/[place] [address] * (ABNORMAL) Magnesium (05/27/2023 10:08 AM CDT) Magnesium, P 1.5(L) 1.7 - 2.3 mg/dL 05/27/2023 10:34 AM CDT [facility] Blood (Blood, Venous) 05/27/2023 10:08 AM CDT 05/27/2023 10:12 AM CDT Flakito MurrietaS. LAB BLOOD ADD-ON Performing Organization Address [facility] [place] [address] * (ABNORMAL) Comprehensive Metabolic Panel (05/27/2023 10:08 [...] AM CDT Flakito Choi LAB BLOOD ADD-ON [facility] [address] [address], [facility] in [address] [address] * (ABNORMAL) CBC with Differential, Blood (05/27/2023 [...] AM CDT Flakito Choi LAB BLOOD ADD-ON [facility]- [address] [address], [facility] in [address] [address] * Thyroid Function [facility] (05/06/2023 8:22 AM CDT) TSH, Sensitive 1.3 0.3 - 4.2 mIU/L 05/06/2023 9:20 AM CDT [facility] Blood (Blood, Venous) 05/06/2023 8:22 AM CDT 05/06/2023 8:26 AM CDT Flakito MurrietaSKeisha [place] [address], [place] [address] * Phosphorus Inorganic (05/06/2023 8:22 AM CDT) [facility] Phosphorus (Inorganic), P 3.4 2.5 - 4.5 mg/dL 05/06/2023 8:50 AM CDT [facility] Blood (Blood, Venous) 05/06/2023 8:22 AM CDT 05/06/2023 8:26 AM CDT Flakito MurrietaS. LAB BLOOD ADD-ON Performing Organization Address City/[facility]/ZIP Co de Phone Number [address] [address], [place] [address] * Magnesium (05/06/2023 8:22 AM CDT) Magnesium, P 1.7 1.7 - 2.3 mg/dL 05/06/2023 8:50 AM CDT [facility] Blood (Blood, Venous) 05/06/2023 8:22 AM CDT 05/06/2023 8:26 AM CDT Flakito MurrietaSKeisha LAB BLOOD ADD-ON [facility]- [address] [place] [address], [place] [facility]MT [facility] in [address] [address] * (ABNORMAL) Comprehensive Metabolic Panel (05/06/2023 8:22 [...] AM CDT Flakito Choi LAB BLOOD ADD-ON [facility]- [address] [address], [facility] FRMT [facility] in [address] [address] * (ABNORMAL) CBC with Differential, Blood (05/06/2023 [...] AM CDT Flakito Choi LAB BLOOD ADD-ON [facility]- [address] [address], [facility] FRMT [facility] [place] [address] * IR Implanted Vascular Access Device Placement [...] medications. Patient education provided by a care cafeteria team leader. Patient was ready to learn with no [...] cancer. Venogram: No Venous access device: 8 Maori single lumen PowerPort with non-valved open-ended catheter [...] current medications. Patienteducation provided by a care cafeteria team leader. Patient was ready to learn with no [...] lungcancer. Venogram: No Venous access device: 8 Maori single lumen PowerPort with [id number] catheter tip. Of note, this is not [...] with 100 u/mL heparin aftereach use. Flakito MurrietaS. IMG IR PROCEDURE S * Thyroid Function [place] (04/15/2023 8:43 AM CDT) [facility] TSH, Sensitive 1.5 0.3 - 4.2 mIU/L 04/15/2023 9:35 AM CDT [facility] Blood (Blood, Venous) 04/15/2023 8:43 AM CDT 04/15/2023 8:47 AM CDT Flakito MurrietaS. LAB BLOOD ADD-ON [facility] [address], [facility] in [address] [address] * Phosphorus Inorganic (04/15/2023 8:43 AM CDT) Pathologist [facility] Phosphorus (Inorganic), P 3.5 2.5 - 4.5 mg/dL 04/15/2023 9:06 AM CDT [facility] Blood (Blood, Venous) 04/15/2023 8:43 AM CDT 04/15/2023 8:47 AM CDT Flakito MurrietaSKeisha LAB BLOOD ADD-ON Performing Organization Address City/[facility]/[place] [address] * (ABNORMAL) Magnesium (04/15/2023 8:43 AM CDT) Magnesium, P 1.6(L) 1.7 - 2.3 mg/dL 04/15/2023 9:06 AM CDT [facility] Blood (Blood, Venous) 04/15/2023 8:43 AM CDT 04/15/2023 8:47 AM CDT Flakito MurrietaS. LAB BLOOD ADD-ON Performing Organization Address City/[facility] [place] [address] * (ABNORMAL) Comprehensive Metabolic Panel (04/15/2023 8:43 [...] AM CDT Flakito Choi LAB BLOOD ADD-ON [facility]- [address] [address], [facility] in [address] [address] * (ABNORMAL) CBC with Differential, Blood (04/15/2023 [...] AM CDT Flakito Choi LAB BLOOD ADD-ON [facility]- [address] [address], [facility] [place] [address] * Thyroid Function [place] (04/07/2023 9:38 AM CDT) TSH, Sensitive 1.1 0.3 - 4.2 mIU/L 04/07/2023 10:24 AM CDT [facility] Blood (Blood, Venous) 04/07/2023 9:38 AM CDT 04/07/2023 9:41 AM CDT Flakito MurrietaSKeisha LAB BLOOD ADD-ON Performing Organization Address City/[facility] Co de Phone Number [address] [address], [address] [address] * Phosphorus Inorganic (04/07/2023 9:38 AM CDT) Phosphorus (Inorganic), P 3.2 2.5 - 4.5 mg/dL 04/07/2023 10:00 AM CDT [facility] Blood (Blood, Venous) 04/07/2023 9:38 AM CDT 04/07/2023 9:41 AM CDT Flakito MurrietaS. LAB BLOOD ADD-ON Performing Organization Address City/[facility]/ZIP Co de Phone Number [address] [address], [address] [address] * Magnesium (04/07/2023 9:38 AM CDT) Magnesium, P 1.7 1.7 - 2.3 mg/dL 04/07/2023 10:00 AM CDT [facility] Blood (Blood, Venous) 04/07/2023 9:38 AM CDT 04/07/2023 9:41 AM CDT Flakito MurrietaSKeisha LAB BLOOD ADD-ON [facility] [address] [place] [address] [place] [address], [place] FRMT [facility] in [address] [address] * (ABNORMAL) Comprehensive Metabolic Panel (04/07/2023 9:38 [...] AM CDT Flakito Choi LAB BLOOD ADD-ON [facility] [address] [address], [facility] FR[facility] [place] [address] * (ABNORMAL) CBC with Differential, Blood (04/07/2023 [...] AM CDT Flakito Choi LAB BLOOD ADD-ON [facility] [place] [address], [facility] FR[facility] [place] [address] documented in this encounter Visit Diagnoses Diagnosis 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)- Primary Mucositis 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
--- OUTSIDE RECORDS SUMMARY | 2023-11-16 16:03 | XMS_ITS | Encounter Summary ---
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 [address] [place] [phone] [facility] On[facility] [address] [place] [address] Referral ID Status Reason Start Date Expiration Date Visits Re quested Visits Authorized [id number] Closed 04/01/2023 03/31/2024 99 99 Encounter Details Date Type Department Care Team (Late st Contact Info) Description 04/20/2023 12:00 PM CDT Infusion Department of Infusion Therapy in [address] [place] [phone] Flakito Desai M.B.B.S. [address] [place] [phone] Malignant Neoplasm Of Unspecified Part Of Lung [...] Sign Reading Time Taken Comments Blood Pressure 112/74 04/20/2023 11:26 AM CDT Pulse 94 04/20/2023 11:26 AM CDT Temperature - - Respiratory Rate - - Oxygen Saturation 98% 04/20/2023 11:26 AM CDT Inhaled Oxygen Concentration - - Weight - - Height - - Body Mass Index - - documented in this encounter Plan of Treatment Upcoming Encounters Date Type Department Care Team (Late st Contact Info) Description 11/18/2023 9:00 AM MECHANICAL REPAIR WORKER Lab Department of Infusion Therapy in [address] [place] [phone] Flakito Desai M.B.B.S. [address] [place] [phone] 11/18/2023 10:00 AM MECHANICAL REPAIR WORKER Office Visit Department of Oncology in [address] [place] [address] Flakito Desai M.B.B.S. [address] [place] [address] 11/18/2023 10:30 AM MECHANICAL REPAIR WORKER Infusion Department of Infusion Therapy in [address] [place] [phone] Flakito Desai M.B.B.S. [address] [place] [address] 11/19/2023 10:30 AM MECHANICAL REPAIR WORKER Infusion Department of Infusion Therapy in [address] [place] [address] Flakito Desai M.B.B.S. [address] [place] [phone] 11/20/2023 10:30 AM MECHANICAL REPAIR WORKER Infusion Department of Infusion Therapy in [address] [place] [address] Flakito Desai M.B.B.S. [address] [place] [phone] 12/07/2023 9:30 AM MECHANICAL REPAIR WORKER Lab Department of Infusion Therapy in [address] [place] [address] Flakito Desai M.B.B.S. [address] [place] [phone] 12/07/2023 10:40 AM MECHANICAL REPAIR WORKER Office Visit Department of Oncology in [address] [place] [phone] Flakito Desai M.B.B.S. [address] [place] [phone] 12/07/2023 11:00 AM MECHANICAL REPAIR WORKER Infusion Department of Infusion Therapy in [address] [place] [phone] Flakito Desai M.B.B.S. [address] [place] [phone] 12/08/2023 10:30 AM MECHANICAL REPAIR WORKER Infusion Department of Infusion Therapy in [address] [place] [address] Flakito Desai M.B.B.S. [address] [place] [address] 12/09/2023 10:30 AM MECHANICAL REPAIR WORKER Infusion Department of Infusion Therapy in [address] [place] [address] Flakito Desai M.B.B.S. 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)- Primary documented in this encounter Administered Medications Inactive Administered Medications - up to 3 most recent administrations Medication Order MAR Action Action Date Dose Rate Site magnesium sulfate in water IVPB 2 g 2 g, intravenous, at 25 mL/hr, Administer over 120 Minutes, Once, On Thu04/20/23 at 1200, For 1 dose, If magnesium 1.4 to 1.6 administer 2 g If magnesium 1.1-1.3 administer 4g If <1.1 called provider New Bag 04/20/2023 12:04 PM CDT 2 g 25 mL/hr NaCl 0.9 % bolus 1,000 mL 1,000 mL, intravenous, at 1,000 mL/hr, Administer over 1 Hours, Once, On Thu04/20/23 at 1200, For 1 dose New Bag 04/20/2023 11:53 AM CDT 1,000 mL 500 mL/hr ondansetron (PF) injection 4 mg (ZOFRAN) 4 mg, intravenous, Once, On Thu04/20/23 at 1200, For 1 dose, Notify provider if patient remains symptomatic after administration. Given 04/20/2023 11:48 AM CDT 4 mg documented in this encounter Additional Health Concerns Infection Onset Date Last Indicated Resolved Time Protective Environment 04/15/2023 04/15/202306/30 6:36 AM CDT documented as of this encounter
--- OUTSIDE RECORDS SUMMARY | 2023-11-16 16:04 | XMS_ITS | Encounter Summary ---
Author Name Unknown Organization [facility] Address [address] [place] [address] Care Team Providers Care Manufacturing Inspector Name Role Phone Unavailable Primary Care Provider Unavailabl e Encounter Details Date Type Department Care Team (Late st Contact Info) Description 03/23/2023 Clinical Communication Department of Infusion Therapy in [address] [place] [phone] Heike Whitaker, R.N. Social History Tobacco Use Types Packs/Day Years [...] encounter Miscellaneous Notes * Telephone Encounter - Heike Whitaker, R.N. - 03/23/2023 10:20 AM CDT Scheduling, Please schedule patient in the new patient spot with Dr. Desai on 04/08. Please also block infusion time on 04/08 for 6 hours for cisplatin/ etoposide. And 04/09 and 04/10 for etoposide days 2 & 3 for 3 hours. Please also call patients and update her on the time of the new patient appointment with Dr. Desai, and discuss with her to ask at the [place] oncology appt to fax all records to [phone]. Thanks CALLUM Burroughs * Telephone Encounter - Heike Whitaker R.N. - 03/23/2023 10:08 AM CDT Diagnosis- Metastatic small cell, liver mets. Unknowns primary Do we have medical records- if not, when will they be sent? Will be sent after appointment in [place] tomorrow 03/24 Pathology- awaiting with records Name and number of person calling- Spoke with patients daughter, Paula, she stated patient will be coming to [place] and will be needing to transfer oncology care. Next treatment is due 04/08 - 04/10 documented in this encounter Plan of Treatment Upcoming Encounters Date Type Department Care Team (Late st Contact Info) Description 11/18/2023 9:[address]EMAN Lab Department of Infusion Therapy in [address] [place] [phone] Flakito Desai M.B.B.S. [address] [place] [address] 11/18/2023 10:[address] Office Visit Department of Oncology in [address] [place] [phone] Flakito Desai M.B.B.S. [address] [place] [address] 11/18/2023 10:[address] [employer]EMAN Infusion Department of Infusion Therapy in [address] [place] [address] Flakito Desai M.B.B.S. [address] [place] [phone] 11/19/2023 10:[address] [employer]EMAN Infusion Department of Infusion Therapy in [address] [place] [address] Flakito Desai M.B.B.S. [address] [place] [phone] 11/20/2023 10:[address] [employer]EMAN Infusion Department of Infusion Therapy in [address] [place] [address] Flakito Desai M.B.B.S. [address] [place] [phone] 12/07/2023 9:[address] [employer]EMAN Lab Department of Infusion Therapy in [address] [place] [phone] Flakito Desai M.B.B.S. [address] [place] [phone] 12/07/2023 10:[address] [employer]EMAN Office Visit Department of Oncology in [address] [place] [address] Flakito Desai M.B.B.S. [address] [place] [phone] 12/07/2023 11:[address] [employer]EMAN Infusion Department of Infusion Therapy in [address] [place] [address] Flakito Desai M.B.B.S. [address] [place] [phone] 12/08/2023 10:[address] [employer]EMAN Infusion Department of Infusion Therapy in [address] [place] [address] Flakito Desai M.B.B.S. [address] [place] [phone] 12/09/2023 10:[address] Infusion Department of Infusion Therapy in [address] [place] [address] Flakito Desai M.B.B.S. [address] [place] [phone] documented as of this encounter Visit Diagnoses Not on filedocumented in this encounter
== END 2023-11-16 15:50 | disposition home or self-care (01) ==
LOC: NFLDREF 15:58
PROVIDERS: PCP Internal Medicine; Visit Provider Internal Medicine
DX: E78.2 Mixed hyperlipidemia (principal)
CPT/HCPCS: 80061